=== PATIENT | male | born 1980 | race American Indian/Alaskan Native ===

== ENCOUNTER 2018-10-04 21:24 | Emergency (ER) | payer MEDICAID, OTHER ==
[2018-10-04] MEDS ORDERED: Acetaminophen/HYDROcodone 108-2.5 MG/5 ML Cup PO ONE ×2 (22:30→22:31)
[2018-10-04] MEDS ORDERED: Acetaminophen/oxyCODONE 325-5 MG Tab PO ONE (22:39)
[2018-10-04 22:49] LABS: ANION GAP 14.5; CHLORIDE,CL 93 mmol/L (101-111); SODIUM,NA 126 mmol/L (135-145)
--- NOTE | 2018-10-04 23:14 | EDM.PDOC ---
ED HPI GENERAL MEDICAL PROBLEM - General Chief Complaint: ENT Problem Stated Complaint: PAIN IN JAW [id number] Time Seen by Provider: 10/04/18 21:40 Source of Information: Reports: Patient History Limitations: Reports: No Limitations - History of Present Illness INITIAL COMMENTS - FREE TEXT/NARRATIVE: ED with c/o left jaw pain, Reports falling 2 weeks ago and fractured jaw. Hospitalized and surgical repair in [place]. Home with pain medication, Ran out on Tuesday, Today increased pain and some swelling on left lower, felt warm today. Has continued liquid diet and oral rinses. Stated he attempted to contact surgeons office today and patient was told to come to ED for refill of medications. Follow up appointment next week. has been alternating tylenol and ibuprofen without relief today. Left Face Pain Score (Numeric/FACES): 10 - Related Data Allergies Allergy/AdvReac Type Severity Reaction Status Date / Time pineapple Allergy Other Verified 10/04/18 21:28 Home Meds: Home Meds Citalopram Hydrobromide [Citalopram HBr] 20 mg PO DAILY 02/20/15 [History] Lisinopril 20 mg PO DAILY 02/20/15 [History] Ranitidine HCl [Zantac 75] 75 mg PO ASDIRECTED PRN 08/08/18 [History] metFORMIN HCl [Metformin HCl] 1,000 mg PO DAILY 08/08/18 [History] traZODone HCl [Trazodone HCl] 150 mg PO BEDTIME PRN 08/08/18 [History] Insulin Glarg,Human.Rec.Analog [Lantus] 20 units SUBCUT DAILY 10/04/18 [History] Past Medical History Cardiovascular History: Reports: Hypertension Gastrointestinal History: Reports: GERD Musculoskeletal History: Reports: Fracture Other Musculoskeletal History: left jaw Other Psychiatric History: insomnia Endocrine/Metabolic History: Reports: Diabetes, Type II - Past Surgical History HEENT Surgical History: Reports: Other (See Below) Other HEENT Surgeries/Procedures: jaw wired shut Other Musculoskeletal Surgeries/Procedures:: right lower leg surgery Social & Family History - Family History Family Medical History: Noncontributory - Tobacco Use Smoking Status *Q: Current Every Day Smoker Years of Tobacco use: 20 Packs/Tins Daily: 0.2 - Caffeine Use Caffeine Use: Reports: Coffee, Soda - Recreational Drug Use Recreational Drug Use: No - Living Situation & Occupation Living situation: Reports: with Family Occupation: Unemployed ED ROS ENT - Review of Systems Review Of Systems: See Below Constitutional: Reports: Fever HEENT: Reports: Other (left jaw pain wires and plates) Respiratory: Reports: No Symptoms Cardiovascular: Reports: No Symptoms Endocrine: Denies: High Glucose GI/Abdominal: Reports: No Symptoms Musculoskeletal: Reports: No Symptoms Skin: Reports: No Symptoms Neurological: Reports: No Symptoms ED EXAM, ENT - Physical Exam Exam: See Below Exam Limited By: No Limitations General Appearance: Alert, Mild Distress Eye Exam: Bilateral Eye: EOMI Ears: Normal External Exam, Normal TMs Nose: Normal Inspection Mouth/Throat: Other (jaw wired, mild swelling noted left lower, no redness, Gum tissue appears normal, dentation wnl) Head: Other (old abrasion mid parietal 3cm) Neck: Full Range of Motion Respiratory/Chest: No Respiratory Distress, Lungs Clear, Normal Breath Sounds Cardiovascular: Normal Peripheral Pulses, Regular Rate, Rhythm GI/Abdominal: Soft Extremities: Normal Inspection Neurological: Alert, Oriented, Normal Cognition Psychiatric: Normal Affect Skin: Warm, Dry, Intact, Normal Color Course - Vital Signs Last Recorded V/S: Last Vital Signs Temp 98.0 F 10/04/18 21:31 Pulse 94 10/04/18 23:14 Resp 16 10/04/18 23:14 BP 146/95 H 10/04/18 23:14 Pulse Ox 99 10/04/18 23:14 - Orders/Labs/Meds Labs: Laboratory Tests 10/04/18 10/04/18 10/04/18 Range/Units 22:22 22:22 22:22 WBC 7.3 (5.0-10.0) 10^3/uL RBC 4.50 L (4.6-6.2) 10^6/uL Hgb 14.1 (14.0-18.0) g/dL Hct 39.7 L (40.0-54.0) % MCV 88.2 (80-100) fL MCH 31.3 (27.0-34.0) pg MCHC 35.5 H (33.0-35.0) g/dL Plt Count 243 (150-450) 10^3/uL Neut % (Auto) 49.7 (42.2-75.2) % Lymph % (Auto) 38.0 (20.5-50.1) % Ocean % (Auto) 11.0 H (2-8) % Eos % (Auto) 1.0 (1.0-3.0) % Baso % (Auto) 0.3 (0.0-1.0) % Sodium 126 L (135-145) mmol/L Potassium 3.5 L (3.6-5.0) mmol/L Chloride 93 L (101-111) mmol/L Carbon Dioxide 22.0 (21.0-31.0) mmol/L Anion Gap 14.5 BUN 7 (7-18) mg/dL Creatinine 0.5 L (0.6-1.3) mg/dL Est Cr Clr Drug Dosing 196.39 mL/min Estimated GFR (MDRD) > 60 Glucose 394 H (74-105) mg/dL Lactic Acid 1.3 (0.5-2.2) mmol/L Calcium 8.3 L (8.4-10.2) mg/dl Ethyl Alcohol mg/dL 10/04/18 Range/Units 22:22 WBC (5.0-10.0) 10^3/uL RBC (4.6-6.2) 10^6/uL Hgb (14.0-18.0) g/dL Hct (40.0-54.0) % MCV (80-100) fL MCH (27.0-34.0) pg MCHC (33.0-35.0) g/dL Plt Count (150-450) 10^3/uL Neut % (Auto) (42.2-75.2) % Lymph % (Auto) (20.5-50.1) % Ocean % (Auto) (2-8) % Eos % (Auto) (1.0-3.0) % Baso % (Auto) (0.0-1.0) % Sodium (135-145) mmol/L Potassium (3.6-5.0) mmol/L Chloride (101-111) mmol/L Carbon Dioxide (21.0-31.0) mmol/L Anion Gap BUN (7-18) mg/dL Creatinine (0.6-1.3) mg/dL Est Cr Clr Drug Dosing mL/min Estimated GFR (MDRD) Glucose (74-105) mg/dL Lactic Acid (0.5-2.2) mmol/L Calcium (8.4-10.2) mg/dl Ethyl Alcohol < 5 mg/dL Meds: Medications Discontinued Medications Generic Name Dose Route Start Last Admin Trade Name Eboni PRN Reason Stop Dose Admin Hydrocodone Bitart/Acetaminophen 5 ml 10/04/18 22:30 Acetaminophen/Hydrocodone 108-2.5 Mg/5 Ml PO 10/04/18 22:31 ONETIME ONE Hydrocodone Bitart/Acetaminophen 10 ml 10/04/18 22:31 10/04/18 23:03 Acetaminophen/Hydrocodone 108-2.5 Mg/5 Ml PO 10/04/18 22:32 Not Given ONETIME ONE Oxycodone/Acetaminophen 1 tab 10/04/18 22:39 10/04/18 22:45 Percocet 325-5 Mg PO 10/04/18 22:40 1 tab ONETIME ONE Administration Departure - Departure Time of Disposition: 23:10 Disposition: Home, Self-Care 01 Condition: Good Clinical Impression: Jaw pain Fx angle of jaw-closed Qualifiers: Encounter type: sequela Laterality: left Qualified Code(s): S02.652S - Fracture of angle of left mandible, sequela - Discharge Information *PRESCRIPTION DRUG MONITORING PROGRAM REVIEWED*: Yes *COPY OF PRESCRIPTION DRUG MONITORING REPORT IN PATIENT SEMJA: No Instructions: Mandibular Fracture, [id number] Forms: ED Department Discharge Additional Instructions: continue liquid diet oral rinses sleep with HOB elevated Follow up with surgeon in am alternate tylenol 650mg and ibuprofen 600mg every 4 hours as needed
[2018-10-04 23:15] VITALS: BP 146/95
== END 2018-10-04 23:16 | disposition home or self-care (01) ==
LOC: DL.ED 21:24
DX: S02.652D Fracture of angle of left mandible, subsequent encounter for fracture with routine healing (principal); R68.84 Jaw pain; I10 Essential (primary) hypertension; E11.9 Type 2 diabetes mellitus without complications; Z79.4 Long term (current) use of insulin; F17.210 Nicotine dependence, cigarettes, uncomplicated; Z91.018 Allergy to other foods; Z79.899 Other long term (current) drug therapy; W19.XXXD Unspecified fall, subsequent encounter
CPT/HCPCS: 36415; 80048; 83605; 85025; 99283; A9270; G0480

== ENCOUNTER 2018-11-11 13:57 | Emergency (ER) | payer MEDICAID, OTHER ==
[2018-11-11] MEDS ORDERED: metroNIDAZOLE 250 MG Tab PO ONE (13:58)
[2018-11-11] MEDS ORDERED: Amoxicillin 500 MG Cap PO ONE (13:58)
[2018-11-11 14:10] VITALS: BP 155/90
[2018-11-11] MEDS ORDERED: Amoxicillin 500 MG Cap ONE (14:49)
[2018-11-11] MEDS ORDERED: metroNIDAZOLE 250 MG Tab ONE (14:49)
--- NOTE | 2018-11-11 14:57 | EDM.PDOC ---
Scribed by Stephanie Mackenzie 11/11/18 [id number] for Tobin Olsen MD ED HPI GENERAL MEDICAL PROBLEM - General Chief Complaint: ENT Problem Stated Complaint: TEETH Time Seen by Provider: 11/11/18 14:30 Source of Information: Reports: Patient, RN, RN Notes Reviewed History Limitations: Reports: No Limitations - History of Present Illness INITIAL COMMENTS - FREE TEXT/NARRATIVE: Patient presents to ER with complaint of left jaw pain with swelling and purulent foul tasting drainage along the left molars. He has history of left mandible fracture with ORIF and metallic plate placed in [place] approximately 5 weeks ago. Patient has not returned for follow up. He denies fever or chills. Denies any recent injuries or postoperative injuries. Onset: Gradual Duration: Constant Location: Reports: Other (mouth) Quality: Reports: Ache Severity: Moderate Improves with: Reports: None Worsens with: Reports: None Associated Symptoms: Reports: No Other Symptoms - Related Data Allergies Allergy/AdvReac Type Severity Reaction Status Date / Time pineapple Allergy Other Verified 11/11/18 14:07 Home Meds: Home Meds Citalopram Hydrobromide [Citalopram HBr] 20 mg PO DAILY 02/20/15 [History] Lisinopril 20 mg PO DAILY 02/20/15 [History] Ranitidine HCl [Zantac 75] 75 mg PO ASDIRECTED PRN 08/08/18 [History] metFORMIN HCl [Metformin HCl] 1,000 mg PO DAILY 08/08/18 [History] traZODone HCl [Trazodone HCl] 150 mg PO BEDTIME PRN 08/08/18 [History] Insulin Glarg,Human.Rec.Analog [Lantus] 20 units SUBCUT DAILY 10/04/18 [History] Past Medical History Cardiovascular History: Reports: Hypertension Gastrointestinal History: Reports: GERD Musculoskeletal History: Reports: Fracture Other Musculoskeletal History: left jaw Other Psychiatric History: insomnia Endocrine/Metabolic History: Reports: Diabetes, Type II - Past Surgical History HEENT Surgical History: Reports: Other (See Below) Other HEENT Surgeries/Procedures: jaw wired shut Other Musculoskeletal Surgeries/Procedures:: right lower leg surgery Social & Family History - Family History Family Medical History: Noncontributory - Caffeine Use Caffeine Use: Reports: Coffee, Soda - Living Situation & Occupation Living situation: Reports: with Family Occupation: Unemployed ED ROS GENERAL - Review of Systems Review Of Systems: ROS reveals no pertinent complaints other than HPI. ED EXAM, GENERAL - Physical Exam Exam: See Below Exam Limited By: No Limitations General Appearance: Alert, WD/WN, No Apparent Distress Eye Exam: Bilateral Eye: Normal Inspection Ears: Normal External Exam, Hearing Grossly Normal Nose: Normal Inspection, Normal Mucosa, No Blood Throat/Mouth: Normal Lips, Other (Left facial swelling without erythema, or increased warmth. Left molar gingival swelling w/purulent drainage.) Head: Atraumatic, Normocephalic Neck: Normal Inspection, Supple, Non-Tender, Full Range of Motion. No: Lymphadenopathy (L), Lymphadenopathy (R) Respiratory/Chest: No Respiratory Distress Cardiovascular: Regular Rate, Rhythm Neurological: Alert, Oriented, No Motor/Sensory Deficits Psychiatric: Normal Affect, Normal Mood Skin Exam: Warm, Dry, Intact, Normal Color, No Rash Course - Vital Signs Last Recorded V/S: Last Vital Signs Temp 36.6 C 11/11/18 14:03 Pulse 95 11/11/18 14:03 Resp 16 11/11/18 14:03 BP 155/90 H 11/11/18 14:09 Pulse Ox 99 11/11/18 14:03 - Orders/Labs/Meds Orders: Active Orders 24 hr Category Date Time Status CULTURE WOUND [RM] Stat Lab 11/11/18 14:44 Ordered Departure - Departure Time of Disposition: 14:39 Disposition: Home, Self-Care 01 Condition: Fair Clinical Impression: Dental abscess Postoperative infection Qualifiers: Encounter type: initial encounter Postoperative infection type: superficial incisional surgical site Qualified Code(s): T81.41XA - Infection following a procedure, superficial incisional surgical site, initial encounter - Discharge Information *PRESCRIPTION DRUG MONITORING PROGRAM REVIEWED*: Not Applicable *COPY OF PRESCRIPTION DRUG MONITORING REPORT IN PATIENT SEMAJ: Not Applicable Instructions: Dental Abscess, [id number], Surgical Site Infections FAQs - CESAR Forms: ED Department Discharge Additional Instructions: RX: Flagyl 500mg. RX: Amoxicillin 500mg. Swish, rinse and spit with warm salt water several times a day and after every meal. Follow up with his surgeon in [place] at the first available appointment. - My Orders Last 24 Hours: My Active Orders 11/11/18 14:44 CULTURE WOUND [RM] Stat - Assessment/Plan Last 24 Hours: My Active Orders 11/11/18 14:44 CULTURE WOUND [RM] Stat I have read and agree with the documentation that has been completed regarding this visit. By signing this record, I attest that the documentation was completed in my physical presence and is an accurate record of the encounter.
== END 2018-11-11 14:53 | disposition home or self-care (01) ==
LOC: DL.ED 13:57
DX: T81.41XA Infection following a procedure, superficial incisional surgical site, initial encounter (principal); K04.7 Periapical abscess without sinus; I10 Essential (primary) hypertension; E11.9 Type 2 diabetes mellitus without complications; Z91.018 Allergy to other foods; Z79.899 Other long term (current) drug therapy; Z79.4 Long term (current) use of insulin
CPT/HCPCS: 87070; 99283; A9270-GY

== ENCOUNTER 2018-12-29 14:07 | Emergency (ER) | payer MEDICAID, OTHER ==
[~2018-12-29 14:07] MED LIST: Clindamycin Phosphate 900 MG in Sodium Chloride 0.9% 100 ML IV ONE; Iopamidol 612 MG/ML 100 ML Bottle IVPUSH ONE; Ketorolac 30 MG/ML SDV IVPUSH ONE; Lactated Ringers 1,000 ML IV ONE; Morphine 10 MG/ML SDV IV STA; diphenhydrAMINE 50 MG/ML SDV IVPUSH ONE
--- NOTE | 2018-12-29 14:08 | EDM.PDOC ---
ED HPI GENERAL MEDICAL PROBLEM - General Stated Complaint: COMING BY AMBULANCE Time Seen by Provider: 12/29/18 14:05 Source of Information: Reports: Patient, EMS - History of Present Illness INITIAL COMMENTS - FREE TEXT/NARRATIVE: Patient comes emergency department today with complaints of swelling in left jaw pain. Approximately 6 months ago the patient had a broken jaw where he had some surgical procedures done in [facility]. He was supposed to have the hardware removed although he has not had this completed. Over the past 2-3 days he has developed increasing pain and swelling in the left lower aspect of his jaw. He does complain of subjective fever and chills. No difficulty swallowing. No shortness of breath. No difficulty breathing. No chest pain no shortness of breath or difficulty breathing. No palpitations. No nausea no vomiting. No weakness dizziness lightheadedness. Left Lower Jaw Pain Score (Numeric/FACES): 8 - Related Data Allergies Allergy/AdvReac Type Severity Reaction Status Date / Time pineapple Allergy Other Verified 11/11/18 14:07 Home Meds: Home Meds Citalopram Hydrobromide [Citalopram HBr] 20 mg PO DAILY 02/20/15 [History] Lisinopril 20 mg PO DAILY 02/20/15 [History] Ranitidine HCl [Zantac 75] 75 mg PO ASDIRECTED PRN 08/08/18 [History] metFORMIN HCl [Metformin HCl] 1,000 mg PO DAILY 08/08/18 [History] traZODone HCl [Trazodone HCl] 150 mg PO BEDTIME PRN 08/08/18 [History] Insulin Glarg,Human.Rec.Analog [Lantus] 20 units SUBCUT DAILY 10/04/18 [History] Past Medical History HEENT History: Reports: None Cardiovascular History: Reports: Hypertension Respiratory History: Reports: Asthma Gastrointestinal History: Reports: GERD Genitourinary History: Reports: None Musculoskeletal History: Reports: Fracture Other Musculoskeletal History: left jaw Neurological History: Reports: None Other Psychiatric History: insomnia Endocrine/Metabolic History: Reports: Diabetes, Type II Hematologic History: Reports: None Immunologic History: Reports: None Oncologic (Cancer) History: Reports: None Dermatologic History: Reports: None - Infectious Disease History Infectious Disease History: Reports: Chicken Pox, Measles, Mumps - Past Surgical History HEENT Surgical History: Reports: Other (See Below) Other HEENT Surgeries/Procedures: jaw wired shut Other Musculoskeletal Surgeries/Procedures:: right lower leg surgery Social & Family History - Family History Family Medical History: Noncontributory - Caffeine Use Caffeine Use: Reports: Coffee, Soda - Living Situation & Occupation Living situation: Reports: with Family Occupation: Unemployed ED ROS ENT - Review of Systems Review Of Systems: ROS reveals no pertinent complaints other than HPI. ED EXAM, ENT - Physical Exam Exam: See Below Text/Narrative:: It is quite obvious when I enter the room that he has quite a bit of swelling on the left lower jaw just anterior or towards the midline of the angle of the left lower jaw. There is no external erythema induration. Exam Limited By: No Limitations General Appearance: Alert, No Apparent Distress Eye Exam: Bilateral Eye: EOMI Ears: Normal External Exam, Normal TMs Nose: Normal Inspection, Normal Mucousa Mouth/Throat: Dental Abcess (In the very left lower lateral region of the very back molars there is an adjacent area that is rather swollen fluctuant and erythematous concerning for an abscess that is not draining. The rest of the mouth is free of pathology.), Dry Mucous Membrane. No: Drooling, Hoarse Voice, Lip Swelling, Lip Ulcers, Throat Swelling, Tongue Swelling, Tonsillar Erythema, Tonsillar Exudates, Tonsillar Swelling, Uvular Deviation, Uvular Edema Head: Atraumatic, Normocephalic, Facial Swelling (Left lower angle of the jaw. No erythema induration or breaks in the skin.) Neck: Normal Inspection, Supple, Non-Tender, Full Range of Motion Respiratory/Chest: No Respiratory Distress, Lungs Clear, Normal Breath Sounds, No Accessory Muscle Use Cardiovascular: Normal Peripheral Pulses, Regular Rate, Rhythm, No Gallop, No JVD, No Murmur, No Rub GI/Abdominal: Normal Bowel Sounds, Soft, Non-Tender Extremities: Normal Inspection, Normal Range of Motion, Normal Capillary Refill Neurological: Alert, Oriented, Normal Cognition, No Motor/Sensory Deficits Psychiatric: Normal Affect, Normal Mood Skin: Warm, Dry, Intact, Normal Color, No Rash Course - Vital Signs Last Recorded V/S: Last Vital Signs Temp 36.7 C 12/29/18 17:18 Pulse 78 12/29/18 17:18 Resp 18 12/29/18 17:18 BP 142/65 H 12/29/18 17:18 Pulse Ox 99 12/29/18 17:18 - Orders/Labs/Meds Orders: Active Orders 24 hr Category Date Time Status CULTURE BLOOD [BC] Stat Lab 12/29/18 14:05 Received Labs: Laboratory Tests 12/29/18 12/29/18 12/29/18 Range/Units 14:00 14:00 14:00 WBC 6.9 (5.0-10.0) 10^3/uL RBC 4.50 L (4.6-6.2) 10^6/uL Hgb 14.1 (14.0-18.0) g/dL Hct 40.6 (40.0-54.0) % MCV 90.2 (80-100) fL MCH 31.3 (27.0-34.0) pg MCHC 34.7 (33.0-35.0) g/dL Plt Count 192 (150-450) 10^3/uL Neut % (Auto) 54.5 (42.2-75.2) % Lymph % (Auto) 32.2 (20.5-50.1) % [place] % (Auto) 12.2 H (2-8) % Eos % (Auto) 0.7 L (1.0-3.0) % Baso % (Auto) 0.4 (0.0-1.0) % Sodium 131 L (135-145) mmol/L Potassium 4.3 (3.6-5.0) mmol/L Chloride 97 L (101-111) mmol/L Carbon Dioxide 22.0 (21.0-31.0) mmol/L Anion Gap 16.3 BUN 10 (7-18) mg/dL Creatinine 0.6 (0.6-1.3) mg/dL Est Cr Clr Drug Dosing 163.66 mL/min Estimated GFR (MDRD) > 60 BUN/Creatinine Ratio 16.66 Glucose 374 H (74-105) mg/dL POC Glucose (70-105) mg/dl Lactic Acid (0.5-2.2) mmol/L Calcium 8.9 (8.4-10.2) mg/dl Total Bilirubin 0.7 (0.2-1.0) mg/dL AST 133 H (10-42) IU/L ALT 155 H (10-60) IU/L Alkaline Phosphatase 136 H (42-121) IU/L C-Reactive Protein 1.2 (0.0-1.3) mg/dL Total Protein 7.3 (6.7-8.2) g/dl Albumin 3.4 (3.2-5.5) g/dl Globulin 3.9 Albumin/Globulin Ratio 0.87 12/29/18 12/29/18 12/29/18 Range/Units 14:05 14:09 15:44 WBC (5.0-10.0) 10^3/uL RBC (4.6-6.2) 10^6/uL Hgb (14.0-18.0) g/dL Hct (40.0-54.0) % MCV (80-100) fL MCH (27.0-34.0) pg MCHC (33.0-35.0) g/dL Plt Count (150-450) 10^3/uL Neut % (Auto) (42.2-75.2) % Lymph % (Auto) (20.5-50.1) % [place] % (Auto) (2-8) % Eos % (Auto) (1.0-3.0) % Baso % (Auto) (0.0-1.0) % Sodium (135-145) mmol/L Potassium (3.6-5.0) mmol/L Chloride (101-111) mmol/L Carbon Dioxide (21.0-31.0) mmol/L Anion Gap BUN (7-18) mg/dL Creatinine (0.6-1.3) mg/dL Est Cr Clr Drug Dosing mL/min Estimated GFR (MDRD) BUN/Creatinine Ratio Glucose (74-105) mg/dL POC Glucose 369 H 187 H (70-105) mg/dl Lactic Acid 1.9 (0.5-2.2) mmol/L Calcium (8.4-10.2) mg/dl Total Bilirubin (0.2-1.0) mg/dL AST (10-42) IU/L ALT (10-60) IU/L Alkaline Phosphatase (42-121) IU/L C-Reactive Protein (0.0-1.3) mg/dL Total Protein (6.7-8.2) g/dl Albumin (3.2-5.5) g/dl Globulin Albumin/Globulin Ratio 12/29/18 Range/Units 16:30 WBC (5.0-10.0) 10^3/uL RBC (4.6-6.2) 10^6/uL Hgb (14.0-18.0) g/dL Hct (40.0-54.0) % MCV (80-100) fL MCH (27.0-34.0) pg MCHC (33.0-35.0) g/dL Plt Count (150-450) 10^3/uL Neut % (Auto) (42.2-75.2) % Lymph % (Auto) (20.5-50.1) % [place] % (Auto) (2-8) % Eos % (Auto) (1.0-3.0) % Baso % (Auto) (0.0-1.0) % Sodium (135-145) mmol/L Potassium (3.6-5.0) mmol/L Chloride (101-111) mmol/L Carbon Dioxide (21.0-31.0) mmol/L Anion Gap BUN (7-18) mg/dL Creatinine (0.6-1.3) mg/dL Est Cr Clr Drug Dosing mL/min Estimated GFR (MDRD) BUN/Creatinine Ratio Glucose (74-105) mg/dL POC Glucose 255 H (70-105) mg/dl Lactic Acid (0.5-2.2) mmol/L Calcium (8.4-10.2) mg/dl Total Bilirubin (0.2-1.0) mg/dL AST (10-42) IU/L ALT (10-60) IU/L Alkaline Phosphatase (42-121) IU/L C-Reactive Protein (0.0-1.3) mg/dL Total Protein (6.7-8.2) g/dl Albumin (3.2-5.5) g/dl Globulin Albumin/Globulin Ratio Meds: Medications Discontinued Medications Generic Name Dose Route Start Last Admin Trade Name Freq PRN Reason Stop Dose Admin Diphenhydramine HCl 25 mg 12/29/18 14:05 12/29/18 14:23 Benadryl IVPUSH 12/29/18 14:06 25 mg ONETIME ONE Administration Hydromorphone HCl 1 mg 12/29/18 16:49 12/29/18 17:24 Dilaudid IVPUSH 12/29/18 16:50 1 mg ONETIME ONE Administration Lactated Ringer's 1,000 mls @ 1,000 mls/hr 12/29/18 14:05 12/29/18 14:26 Ringers, Lactated IV 12/29/18 15:04 1,000 mls/hr .BOLUS ONE Administration Clindamycin Phosphate 900 mg/ 106 mls @ 200 mls/hr 12/29/18 14:06 12/29/18 14 :19 Sodium Chloride IV 12/29/18 14:37 200 mls/hr ONETIME ONE Administration Lactated Ringer's 1,000 mls @ 200 mls/hr 12/29/18 17:15 12/29/18 17:24 Ringers, Lactated IV 200 mls/hr ASDIRECTED CARMEN Administration Insulin Human Regular 5 unit 12/29/18 14:09 12/29/18 14:21 Humulin R SUBCUT 12/29/18 14:10 5 units ONETIME ONE Administration Iopamidol 100 ml 12/29/18 14:06 12/29/18 14:59 Isovue-300 (61%) IVPUSH 12/29/18 14:07 100 ml ONETIME ONE Administration Ketorolac Tromethamine 30 mg 12/29/18 14:05 12/29/18 14:20 Toradol IVPUSH 12/29/18 14:06 30 mg ONETIME ONE Administration Lidocaine/Epinephrine 20 ml 12/29/18 14:53 12/29/18 17:37 Xylocaine 1% With Epinephrine 1:100,000 INJECT 12/29/18 14:54 Not Given ONETIME ONE Morphine Sulfate 4 mg 12/29/18 14:05 12/29/18 14:26 Morphine IV 12/29/18 14:06 Not Given NOW STA Morphine Sulfate 4 mg 12/29/18 14:15 12/29/18 14:26 Morphine IV 12/29/18 14:16 4 mg NOW STA Administration - Radiology Interpretation Free Text/Narrative:: CT of the facial bones per radiology with contrast. Question of periostosis acute vs chronic and cellulitis of the area in questions with no identifiable drainable abscess. - Re-Assessments/Exams Free Text/Narrative Re-Assessment/Exam: 12/29/18 lood cultures 2 pending. Patient was given pain nausea management. CT scan was performed. Clindamycin 900 mg IV piggyback. with the presence of the surgical implant for the repair of the mandible fracture in the area of the severe cellulitis with concerns for infection that is spread into the surgical site. There is no drainable abscess. I called and spoke with Dr. Ferreira at [facility]. [facility] ER COURSE findings and concerns were relayed to him. He accepted the patient in transfer at this time. The patient was comfortable with this plan and his questions answered. Departure - Departure Time of Disposition: 17:00 Disposition: DC/Tfer to [facility] 02 Clinical Impression: Dentoalveolar cellulitis - Discharge Information Forms: ED Department Discharge - My Orders Last 24 Hours: My Active Orders 12/29/18 14:05 CULTURE BLOOD [BC] Stat - Assessment/Plan Last 24 Hours: My Active Orders 12/29/18 14:05 CULTURE BLOOD [BC] Stat Assessment:: Left lower dental alveolar cellulitis SP mandible fracture. Concern for surgical hardware infection. Plan: Transfer to [facility] for further care and evaluation.
[2018-12-29] MEDS ORDERED: Insulin Regular, Human 100 Units/ML 3 ML Vial SUBCUT ONE (14:09)
[2018-12-29] MEDS ORDERED: Morphine 4 MG/ML Syringe IV STA (14:15)
[2018-12-29 14:33] LABS: ANION GAP 16.3; CHLORIDE,CL 97 mmol/L (101-111); SODIUM,NA 131 mmol/L (135-145)
[2018-12-29] MEDS: Lidocaine 1% with EPINEPHrine 1:100,000 20 ML MDV INJECT ONE ×2 (15:08→17:37)
--- NOTE | 2018-12-29 16:27 | CT ---
Clinical history: 38-year-old diabetic male with fractured jaw who underwent surgery approximately 6 months ago presents now with asymmetric swelling, inferior/lateral to the fractured left mandible (and "hardware"). Scan technique: Volume acquisition of data emergency unenhanced CT scan of the facial bones obtained while the patient was lying supine on the Siemens multi slice scanner [place], [place]. All data archived in the PAC system for storage, reformatting axial/sagittal/coronal planes and study. Interpretation: 1. Asymmetric soft tissue swelling, on the left with the underlying mandibular fracture at the epicenter, does not have a central area of necrosis or loculation i.e. no definite organized abscess appreciated. 2. Satisfactory apposition and near anatomic alignment of the fracture fragments angle of the left mandible with focal periostitis and callus may simply reflect 6 months of healing however cannot entirely exclude possibility of inflammatory periostitis. Note: No abnormal dissolution of the underlying cortical bone suggesting osteomyelitis. 3. Normal TMJs bilaterally. No zygomatic arch, contralateral right mandible or maxillary fractures. 4. Inflammatory retention cyst maxillary antra bilaterally. Nasal septum is straight in the midline. CONCLUSION: Evidence of old fracture and surgical intervention. Asymmetric soft tissue swelling without organized abscess i.e. probable cellulitis but close clinical correlation and follow-up (possible MRI) requested.
[2018-12-29] MEDS ORDERED: HYDROmorphone 1 MG/ML Syringe IVPUSH ONE (16:49)
[2018-12-29] MEDS ORDERED: Lactated Ringers 1,000 ML IV SCH (17:15)
[2018-12-29 17:24] VITALS: BP 142/65
== END 2018-12-29 17:35 ==
LOC: DL.ED 14:07
DX: K12.2 Cellulitis and abscess of mouth (principal); I10 Essential (primary) hypertension; J45.909 Unspecified asthma, uncomplicated; K21.9 Gastro-esophageal reflux disease without esophagitis; E11.9 Type 2 diabetes mellitus without complications; Z79.4 Long term (current) use of insulin; Z91.018 Allergy to other foods; Z79.899 Other long term (current) drug therapy
CPT/HCPCS: 36415; 70487; 80053; 82962; 83605; 85025; 86140; 87040; 96361; 96365; 96372; 96375; 99283; J1170; J1200; J1885; J2270; J3490; J7050; J7120; Q9967

== ENCOUNTER 2019-03-13 16:53 | Emergency (ER) | payer MEDICAID, OTHER ==
[2019-03-13 17:06] VITALS: BP 142/85
[2019-03-13] MEDS ORDERED: Sodium Chloride 0.9% 1,000 ML IV ONE (17:19)
[2019-03-13] MEDS ORDERED: Ondansetron 4 MG/2 ML SDV IV ONE (17:19)
[2019-03-13] MEDS ORDERED: HYDROmorphone 1 MG/ML Syringe IVPUSH ONE (17:20)
[2019-03-13] MEDS ORDERED: Sodium Chloride 0.9% 10 ML Syringe FLUSH PRN (17:20)
--- NOTE | 2019-03-13 17:26 | EDM.PDOC ---
"<Mario Olsen - Last Filed: 03/13/19 18:39> ED HPI GENERAL MEDICAL PROBLEM - General Chief Complaint: Abdominal Pain Stated Complaint: ABDOMINAL PAIN Time Seen by Provider: 03/13/19 17:25 Source of Information: Reports: Patient, RN, RN Notes Reviewed History Limitations: Reports: No Limitations - History of Present Illness INITIAL COMMENTS - FREE TEXT/NARRATIVE: Pt presents to ER by POV stating that [facility] told him to go to the ER for evaluation of abdominal pain. Pt c/o upper abdominal pain x3 days with fevers, nausea, and vomiting x1. Pt states he was diagnosed with gallstones and was to have his gallbladder removed, but he broke his jaw and had to have it surgically repaired before they would operate on it. Pt denies diarrhea, dysuria , or abdominal distention. Onset Date: 03/10/19 Duration: Constant Location: Reports: Abdomen Quality: Reports: Ache Severity: Severe Improves with: Reports: None Worsens with: Reports: Eating Associated Symptoms: Reports: No Other Symptoms Abdomen Pain Score (Numeric/FACES): 7 - Related Data Allergies Allergy/AdvReac Type Severity Reaction Status Date / Time pineapple Allergy Other Verified 03/13/19 17:07 Home Meds: Home Meds Citalopram Hydrobromide [Citalopram HBr] 20 mg PO DAILY 02/20/15 [History] Lisinopril 20 mg PO DAILY 02/20/15 [History] Ranitidine HCl [Zantac 75] 75 mg PO ASDIRECTED PRN 08/08/18 [History] metFORMIN HCl [Metformin HCl] 1,000 mg PO DAILY 08/08/18 [History] Insulin Glarg,Human.Rec.Analog [Lantus] 20 units SUBCUT DAILY 10/04/18 [History] Past Medical History HEENT History: Reports: None Cardiovascular History: Reports: Hypertension Respiratory History: Reports: Asthma Gastrointestinal History: Reports: GERD Genitourinary History: Reports: None Musculoskeletal History: Reports: Fracture Other Musculoskeletal History: left jaw Neurological History: Reports: None Psychiatric History: Reports: Addiction, Depression Other Psychiatric History: insomnia Endocrine/Metabolic History: Reports: Diabetes, Type II Hematologic History: Reports: None Immunologic History: Reports: None Oncologic (Cancer) History: Reports: None Dermatologic History: Reports: None - Infectious Disease History Infectious Disease History: Reports: Chicken Pox, Measles, Mumps - Past Surgical History Head Surgeries/Procedures: Reports: None HEENT Surgical History: Reports: Other (See Below) Other HEENT Surgeries/Procedures: jaw wired shut Other Musculoskeletal Surgeries/Procedures:: right lower leg surgery Social & Family History - Family History Family Medical History: Noncontributory - Tobacco Use Smoking Status *Q: Current Every Day Smoker Years of Tobacco use: 27 Packs/Tins Daily: 0.5 Second Hand Smoke Exposure: No - Caffeine Use Caffeine Use: Reports: None - Alcohol Use Alcohol Use History: Yes Days Per Week of Alcohol Use: 6 Number of Drinks Per Day: 10 Total Drinks Per Week: 60 Alcohol Use Frequency: Binges, Patient Refused to Answer - Recreational Drug Use Recreational Drug Use: No - Living Situation & Occupation Living situation: Reports: with Family Occupation: Unemployed ED ROS GENERAL - Review of Systems Review Of Systems: ROS reveals no pertinent complaints other than HPI. ED EXAM, GI/ABD - Physical Exam Exam: See Below Exam Limited By: No Limitations General Appearance: Alert, WD/WN, No Apparent Distress Eyes: Bilateral: Normal Appearance (No scleral icterus) Nose: Normal Inspection, Normal Mucosa, No Blood Throat/Mouth: Normal Inspection, Normal Lips, Normal Teeth, Normal Gums, Normal Oropharynx, Normal Voice, No Airway Compromise Head: Atraumatic, Normocephalic Neck: Normal Inspection, Supple, Non-Tender, Full Range of Motion Respiratory/Chest: No Respiratory Distress, Lungs Clear, Normal Breath Sounds, No Accessory Muscle Use, Chest Non-Tender Cardiovascular: Normal Peripheral Pulses, Regular Rate, Rhythm, No Edema, No Gallop, No JVD, No Murmur, No Rub GI/Abdominal Exam: Normal Bowel Sounds, Soft, No Organomegaly, No Distention, No Abnormal Bruit, Tender (epigastric, RUQ, RLQ, LUQ). No: Guarding, Rigid, Rebound (Male) Exam: Deferred Rectal (Males) Exam: Deferred Back Exam: Normal Inspection, Full Range of Motion. No: CVA Tenderness (L), CVA Tenderness (R) Extremities: Normal Inspection, Normal Range of Motion, Non-Tender, Normal Capillary Refill, No Pedal Edema Neurological: Alert, Oriented, CN II-XII Intact, Normal Cognition, Normal Gait, No Motor/Sensory Deficits Psychiatric: Normal Affect, Normal Mood Skin Exam: Warm, Dry, Intact, Normal Color, No Rash Course - Vital Signs Last Recorded V/S: Last Vital Signs Temp 97.5 F 03/13/19 17:05 Pulse 88 03/13/19 17:05 Resp 12 03/13/19 17:05 BP 142/85 H 03/13/19 17:05 Pulse Ox 96 03/13/19 17:05 - Orders/Labs/Meds Orders: Active Orders 24 hr Category Date Time Status Peripheral IV Care [RC] . DIRECTED Care 03/13/19 17:20 Active Abdomen Pelvis w Cont [CT] Urgent Exams 03/13/19 18:37 Taken Sodium Chloride 0.9% [Saline Flush] Med 03/13/19 17:20 Active 10 ml FLUSH ASDIRECTED PRN Peripheral IV Insertion Adult [OM.PC] Stat Oth 03/13/19 17:19 Ordered Medication Orders Sodium Chloride (Saline Flush) 10 ml FLUSH ASDIRECTED PRN PRN Reason: Keep Vein Open Last Admin: 03/13/19 17:50 Dose: 10 ml Labs: Laboratory Tests 03/13/19 03/13/19 03/13/19 Range/Units 17:32 17:32 17:32 WBC 5.4 (5.0-10.0) 10^3/uL RBC 4.91 (4.6-6.2) 10^6/uL Hgb 15.2 (14.0-18.0) g/dL Hct 43.4 (40.0-54.0) % MCV 88.4 (80-100) fL MCH 31.0 (27.0-34.0) pg MCHC 35.0 (33.0-35.0) g/dL Plt Count 267 D (150-450) 10^3/uL Neut % (Auto) 24.9 L (42.2-75.2) % Lymph % (Auto) 63.2 H (20.5-50.1) % [place] % (Auto) 10.7 H (2-8) % Eos % (Auto) 0.6 L (1.0-3.0) % Baso % (Auto) 0.6 (0.0-1.0) % Sodium 139 (135-145) mmol/L Potassium 3.9 (3.6-5.0) mmol/L Chloride 102 (101-111) mmol/L Carbon Dioxide 24.0 (21.0-31.0) mmol/L Anion Gap 16.9 BUN 8 (7-18) mg/dL Creatinine 0.6 (0.6-1.3) mg/dL Est Cr Clr Drug Dosing 163.66 mL/min Estimated GFR (MDRD) > 60 BUN/Creatinine Ratio 13.33 Glucose 302 H (74-105) mg/dL Lactic Acid 1.6 (0.5-2.2) mmol/L Calcium 8.8 (8.4-10.2) mg/dl Total Bilirubin 0.5 (0.2-1.0) mg/dL AST 244 H (10-42) IU/L ALT 294 H (10-60) IU/L Alkaline Phosphatase 146 H (42-121) IU/L Total Protein 8.1 (6.7-8.2) g/dl Albumin 4.2 (3.2-5.5) g/dl Globulin 3.9 Albumin/Globulin Ratio 1.08 Amylase 60 (28-100) U/L Lipase 37 (22-51) U/L Urine Color (YELLOW) Urine Appearance (CLEAR) Urine pH (5.0-9.0) Ur Specific [place] (1.005-1.030) Urine Protein (NEGATIVE) Urine Glucose (UA) (NEGATIVE) Urine Ketones (NEGATIVE) Urine Occult Blood (NEGATIVE) Urine Nitrite (NEGATIVE) Urine Bilirubin (NEGATIVE) Urine Urobilinogen (0.2-1.0) mg/dL Ur Leukocyte Esterase (NEGATIVE) Urine Opiates Screen (NEGATIVE) Ur Oxycodone Screen (NEGATIVE) Urine Methadone Screen (NEGATIVE) Ur Barbiturates Screen (NEGATIVE) U Tricyclic Antidepress (NEGATIVE) Ur Phencyclidine Scrn (NEGATIVE) Ur Amphetamine Screen (NEGATIVE) U Methamphetamines Scrn (NEGATIVE) Urine MDMA Screen (NEGATIVE) U Benzodiazepines Scrn (NEGATIVE) Urine Cocaine Screen (NEGATIVE) U Marijuana (THC) Screen (NEGATIVE) Ethyl Alcohol 272 mg/dL Ketones 03/13/19 03/13/19 03/13/19 Range/Units 17:32 17:42 17:42 WBC (5.0-10.0) 10^3/uL RBC (4.6-6.2) 10^6/uL Hgb (14.0-18.0) g/dL Hct (40.0-54.0) % MCV (80-100) fL MCH (27.0-34.0) pg MCHC (33.0-35.0) g/dL Plt Count (150-450) 10^3/uL Neut % (Auto) (42.2-75.2) % Lymph % (Auto) (20.5-50.1) % [place] % (Auto) (2-8) % Eos % (Auto) (1.0-3.0) % Baso % (Auto) (0.0-1.0) % Sodium (135-145) mmol/L Potassium (3.6-5.0) mmol/L Chloride (101-111) mmol/L Carbon Dioxide (21.0-31.0) mmol/L Anion Gap BUN (7-18) mg/dL Creatinine (0.6-1.3) mg/dL Est Cr Clr Drug Dosing mL/min Estimated GFR (MDRD) BUN/Creatinine Ratio Glucose (74-105) mg/dL Lactic Acid (0.5-2.2) mmol/L Calcium (8.4-10.2) mg/dl Total Bilirubin (0.2-1.0) mg/dL AST (10-42) IU/L ALT (10-60) IU/L Alkaline Phosphatase (42-121) IU/L Total Protein (6.7-8.2) g/dl Albumin (3.2-5.5) g/dl Globulin Albumin/Globulin Ratio Amylase (28-100) U/L Lipase (22-51) U/L Urine Color Yellow (YELLOW) Urine Appearance Clear (CLEAR) Urine pH 5.0 (5.0-9.0) Ur Specific [place] 1.010 (1.005-1.030) Urine Protein Negative (NEGATIVE) Urine Glucose (UA) 500 H (NEGATIVE) Urine Ketones Negative (NEGATIVE) Urine Occult Blood Negative (NEGATIVE) Urine Nitrite Negative (NEGATIVE) Urine Bilirubin Negative (NEGATIVE) Urine Urobilinogen 0.2 (0.2-1.0) mg/dL Ur Leukocyte Esterase Negative (NEGATIVE) Urine Opiates Screen Negative (NEGATIVE) Ur Oxycodone Screen Negative (NEGATIVE) Urine Methadone Screen Negative (NEGATIVE) Ur Barbiturates Screen Negative (NEGATIVE) U Tricyclic Antidepress Negative (NEGATIVE) Ur Phencyclidine Scrn Negative (NEGATIVE) Ur Amphetamine Screen Negative (NEGATIVE) U Methamphetamines Scrn Negative (NEGATIVE) Urine MDMA Screen Negative (NEGATIVE) U Benzodiazepines Scrn Negative (NEGATIVE) Urine Cocaine Screen Negative (NEGATIVE) U Marijuana (THC) Screen Negative (NEGATIVE) Ethyl Alcohol mg/dL Ketones Negative Meds: Medications Generic Name Dose Route Start Last Admin Trade Name Freq PRN Reason Stop Dose Admin Sodium Chloride 10 ml 03/13/19 17:20 03/13/19 17:50 Saline Flush FLUSH 10 ml ASDIRECTED PRN Administration Keep Vein Open Discontinued Medications Generic Name Dose Route Start Last Admin Trade Name Freq PRN Reason Stop Dose Admin Famotidine 20 mg 03/13/19 19:38 Pepcid IVPUSH 03/13/19 19:39 ONETIME ONE Hydromorphone HCl 1 mg 03/13/19 17:20 03/13/19 17:50 Dilaudid IVPUSH 03/13/19 17:21 1 mg ONETIME ONE Administration Sodium Chloride 1,000 mls @ 999 mls/hr 03/13/19 17:19 03/13/19 17:48 Normal Saline IV 03/13/19 18:19 999 mls/hr .BOLUS ONE Administration Iopamidol 100 ml 03/13/19 18:37 03/13/19 19:08 Isovue-300 (61%) IVPUSH 03/13/19 18:38 98 ml ONETIME ONE Administration Ondansetron HCl 4 mg 03/13/19 17:19 03/13/19 17:49 Zofran IV 03/13/19 17:20 4 mg ONETIME ONE Administration - Re-Assessments/Exams Free Text/Narrative Re-Assessment/Exam: 03/13/19 19:00 Care of pt transferred to [facility] at 1900HR shift change with CT Abd/ Pelvis pending. Departure - Departure Disposition: Home, Self-Care 01 Clinical Impression: Alcohol intoxication Qualifiers: Complication of substance-induced condition: with unspecified complication Qualified Code(s): F10.929 - Alcohol use, unspecified with intoxication, unspecified Abdominal pain Qualifiers: Abdominal location: upper abdomen, unspecified Qualified Code(s): R10.10 - Upper abdominal pain, unspecified Gastritis due to alcohol without hemorrhage Qualifiers: Chronicity: acute Qualified Code(s): K29.20 - Alcoholic gastritis without bleeding - Discharge Information Instructions: Gastritis, Adult, [id number] Forms: ED Department Discharge Additional Instructions: bland low fat diet increase fluid intake, water, juices decrease alcohol use omeprazole 20mg OTC one daily follow up with primary care <Gracy Goddard - Last Filed: 03/13/19 19:49> Course - Radiology Interpretation Free Text/Narrative:: [facility] Final Radiology Report Call: [phone] assistance Online chat: [email or web address] Name: CYNTHIA SOTO Age: 38Years M Date: 03/13/2019 SSN: -- : [id number] Study: CT ABDOMEN/PELVIS W Requesting Physician: MARIO OLSEN Images: 240 Addl Studies: Provided Clinical History: Contrast: With Contrast Medium: Iso 300 Contrast Amount: 98 mL Contrast Method: L Hand Page 1 of 2 EXAM: CT Abdomen and Pelvis With Contrast EXAM DATE/TIME: 03/13/2019 6:57 PM CLINICAL HISTORY: 38 years old, male; Abdominal pain; Localized; Right; Patient HX: Smoker TECHNIQUE: Imaging protocol: Axial computed tomography images of the abdomen and pelvis with intravenous contrast. Coronal and sagittal reformatted images were created and reviewed. Radiation optimization: All CT scans at this facility use at least one of these dose optimization techniques: automated exposure control; mA and/or kV adjustment per patient size (includes targeted exams where dose is matched to clinical indication); or iterative reconstruction. Contrast material: ISO 300; Contrast volume: 98 ml; Contrast route: L HAND; COMPARISON: CT Abdomen Pelvis w Cont 08/08/2018 5:40 AM FINDINGS: ABDOMEN: Liver: 10 mm low attenuation focus lateral segment left lobe liver likely represents a cyst or incompletely opacified hemangioma. Findings stable in comparison to the prior study. Liver otherwise unremarkable. Gallbladder and bile ducts: Normal. No calcified stones. No ductal dilation. Pancreas: Normal. No ductal dilation. Spleen: Normal. No splenomegaly. Adrenals: Normal. No mass. CYNTHIA SOTO | Final Radiology Report CONFIDENTIALITY STATEMENT This report is intended only for use by the referring physician, and only in accordance with law. If you received this in error, call [phone]. Page 2 of 2 Kidneys and ureters: Punctate nonobstructive calculus upper pole right kidney. Stomach and bowel: Hyperdense structure in the gastric wall the GE junction similar in appearance to the prior study. Finding of uncertain significance. Appendix: Normal appendix. PELVIS: Bladder: Unremarkable as visualized. Reproductive: Unremarkable as visualized. ABDOMEN and PELVIS: Intraperitoneal space: Normal. No free air. No significant fluid collection. Bones/joints: Degenerative spondylosis L5-S1. Soft tissues: Unremarkable. Vasculature: Normal. No abdominal aortic aneurysm. Lymph nodes: Normal. No enlarged lymph nodes. IMPRESSION: No acute findings. Thank you for allowing us to participate in the care of your patient. Dictated and Authenticated by: Mikal Hernandez, Violet - Departure Time of Disposition: 19:49 Condition: Good - Discharge Information *PRESCRIPTION DRUG MONITORING PROGRAM REVIEWED*: No *COPY OF PRESCRIPTION DRUG MONITORING REPORT IN PATIENT SEMAJ: No"
[2019-03-13 18:02] LABS: ANION GAP 16.9; CHLORIDE,CL 102 mmol/L (101-111); SODIUM,NA 139 mmol/L (135-145)
[2019-03-13] MEDS ORDERED: Iopamidol 612 MG/ML 100 ML Bottle IVPUSH ONE (18:37)
[2019-03-13] MEDS ORDERED: Famotidine 20 MG/2 ML SDV IVPUSH ONE (19:38)
== END 2019-03-13 20:05 | disposition home or self-care (01) ==
LOC: DL.ED 16:53
DX: K29.20 Alcoholic gastritis without bleeding (principal); F10.229 Alcohol dependence with intoxication, unspecified; I10 Essential (primary) hypertension; F32.9 Major depressive disorder, single episode, unspecified; E11.9 Type 2 diabetes mellitus without complications; F17.210 Nicotine dependence, cigarettes, uncomplicated; Z79.4 Long term (current) use of insulin; Z79.899 Other long term (current) drug therapy; Z91.018 Allergy to other foods; Y90.8 Blood alcohol level of 240 mg/100 ml or more
CPT/HCPCS: 36415; 74177; 80053; 80305; 81003; 82009; 82150; 83605; 83690; 85025; 96361; 96374; 96375; 99284; G0480; J1170; J2405; J3490; J7030; Q9967

== ENCOUNTER 2019-05-29 11:42 | Emergency (ER) | payer MEDICAID ==
[2019-05-29] MEDS ORDERED: Sodium Chloride 0.9% 10 ML Syringe FLUSH PRN (11:53)
[2019-05-29 12:17] VITALS: BP 128/89
[2019-05-29 12:35] LABS: ANION GAP 14.7; CHLORIDE,CL 101 mmol/L (101-111); SODIUM,NA 142 mmol/L (135-145)
[2019-05-29] MEDS ORDERED: MVI, Adult with Vitamin K 10 ML, Folic Acid 1 MG, Thiamine 100 MG in Lactated Ringers 1... IV ONE ×4 (12:44)
[2019-05-29] MEDS ORDERED: Insulin Regular, Human 100 Units/ML 3 ML Vial IV ONE (12:44)
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
== END 2019-05-29 13:58 ==
LOC: DL.ED 11:42
DX: S00.03XA Contusion of scalp, initial encounter (principal); S00.83XA Contusion of other part of head, initial encounter; F10.129 Alcohol abuse with intoxication, unspecified; Y90.8 Blood alcohol level of 240 mg/100 ml or more; J32.0 Chronic maxillary sinusitis; I10 Essential (primary) hypertension; I25.2 Old myocardial infarction; J45.909 Unspecified asthma, uncomplicated; E11.9 Type 2 diabetes mellitus without complications; F32.9 Major depressive disorder, single episode, unspecified; Z91.018 Allergy to other foods; Z79.899 Other long term (current) drug therapy; Z79.4 Long term (current) use of insulin; Y04.2XXA Assault by strike against or bumped into by another person, initial encounter
CPT/HCPCS: 36415; 70450; 71045; 72125; 73030; 80053; 80305; 81001; 82962; 85025; 96365; 96375; 99284; G0480; J3411; J7120; J1815-GY; J3490

== ENCOUNTER 2019-10-19 05:04 | Emergency (ER) | payer MEDICAID ==
[2019-10-19] MEDS ORDERED: Ondansetron 4 MG/2 ML SDV IVPUSH ONE (05:05)
[2019-10-19] MEDS ORDERED: Sodium Chloride 0.9% 1,000 ML IV ONE (05:05)
[2019-10-19] MEDS ORDERED: Ketorolac 30 MG/ML SDV IVPUSH ONE (05:05)
[2019-10-19 05:13] VITALS: BP 110/95; PULSE 94
--- NOTE | 2019-10-19 05:18 | EDM.PDOC ---
ED HPI GENERAL MEDICAL PROBLEM - General Chief Complaint: Abdominal Pain Stated Complaint: AMBULANCE Time Seen by Provider: 10/19/19 05:11 Source of Information: Reports: Patient History Limitations: Reports: No Limitations - History of Present Illness INITIAL COMMENTS - FREE TEXT/NARRATIVE: states been having constant RUQ region pain past 4 months. states tried to get to clinic but unable and decided to come tonight to get something for his pain so he can go to [place] to get this problem taken care. explained to pt this is not how medicine is practiced. Right Lower Abdomen Pain Score (Numeric/FACES): 8 - Related Data Allergies Allergy/AdvReac Type Severity Reaction Status Date / Time pineapple Allergy Other Verified 10/19/19 05:05 Home Meds: Home Meds Citalopram Hydrobromide [Citalopram HBr] 20 mg PO DAILY 02/20/15 [History] Lisinopril 20 mg PO DAILY 02/20/15 [History] Ranitidine HCl [Zantac 75] 75 mg PO ASDIRECTED PRN 08/08/18 [History] metFORMIN HCl [Metformin HCl] 1,000 mg PO DAILY 08/08/18 [History] Insulin Glarg,Human.Rec.Analog [Lantus] 20 units SUBCUT DAILY 10/04/18 [History] Albuterol Sulfate [Proair Hfa] 2 puff INH ASDIRECTED PRN 05/10/19 [History] Gabapentin [Neurontin] 600 mg PO DAILY 05/10/19 [History] Past Medical History HEENT History: Reports: None Cardiovascular History: Reports: Hypertension, [place] Respiratory History: Reports: Asthma Gastrointestinal History: Reports: GERD, Jaundice, Pancreatitis Genitourinary History: Reports: None Musculoskeletal History: Reports: Fracture Other Musculoskeletal History: left jaw Neurological History: Reports: None Psychiatric History: Reports: Addiction, Depression Other Psychiatric History: insomnia Endocrine/Metabolic History: Reports: Diabetes, Type II Hematologic History: Reports: None Immunologic History: Reports: None Oncologic (Cancer) History: Reports: None Dermatologic History: Reports: None - Infectious Disease History Infectious Disease History: Reports: Chicken Pox, Measles, Mumps - Past Surgical History Head Surgeries/Procedures: Reports: None HEENT Surgical History: Reports: Other (See Below) Other HEENT Surgeries/Procedures: jaw wired shut Other Musculoskeletal Surgeries/Procedures:: right lower leg surgery Social & Family History - Family History Family Medical History: Noncontributory - Caffeine Use Caffeine Use: Reports: None - Living Situation & Occupation Living situation: Reports: with Family Occupation: Unemployed ED ROS GENERAL - Review of Systems Review Of Systems: Comprehensive ROS is negative, except as noted in HPI. ED EXAM, GI/ABD - Physical Exam Exam: See Below Exam Limited By: No Limitations General Appearance: Alert, WD/WN, Mild Distress, Other (discomfort). No: Active Emesis Ears: Hearing Grossly Normal Throat/Mouth: Normal Voice, No Airway Compromise Head: Atraumatic Neck: Non-Tender, Full Range of Motion Respiratory/Chest: No Respiratory Distress Cardiovascular: Regular Rate, Rhythm GI/Abdominal Exam: Tender, Other (RUQ region, BS hyper). No: Distended, Guarding, Rigid, Rebound Neurological: Alert, Oriented, Normal Cognition, Normal Gait, No Motor/Sensory Deficits Psychiatric: Flat Affect Skin Exam: Warm, Dry, Normal Color Lymphatic: No Adenopathy Course - Vital Signs Last Recorded V/S: Last Vital Signs Temp 36.9 C 10/19/19 05:12 Pulse 94 10/19/19 05:12 Resp 16 10/19/19 05:12 BP 110/95 H 10/19/19 05:12 Pulse Ox 97 10/19/19 05:12 - Orders/Labs/Meds Orders: Active Orders 24 hr Category Date Time Status Sodium Chloride 0.9% [Normal Saline] 1,000 ml Med 10/19/19 05:05 Active IV .BOLUS Medication Orders Sodium Chloride (Normal Saline) 1,000 mls @ 999 mls/hr IV .BOLUS ONE Stop: 10/19/19 06:05 Last Admin: 10/19/19 05:14 Dose: 999 mls/hr Labs: Laboratory Tests 10/19/19 10/19/19 10/19/19 Range/Units 05:03 05:03 05:22 WBC 7.5 (5.0-10.0) 10^3/uL RBC 4.94 (4.6-6.2) 10^6/uL Hgb 15.5 (14.0-18.0) g/dL Hct 42.5 (40.0-54.0) % MCV 86.0 D (80-100) fL MCH 31.4 (27.0-34.0) pg MCHC 36.5 H (33.0-35.0) g/dL Plt Count 239 (150-450) 10^3/uL Neut % (Auto) 48.2 (42.2-75.2) % Lymph % (Auto) 40.9 (20.5-50.1) % [place] % (Auto) 10.1 H (2-8) % Eos % (Auto) 0.4 L (1.0-3.0) % Baso % (Auto) 0.4 (0.0-1.0) % Sodium 130 L D (135-145) mmol/L Potassium 3.5 L (3.6-5.0) mmol/L Chloride 95 L (101-111) mmol/L Carbon Dioxide 22.0 (21.0-31.0) mmol/L Anion Gap 16.5 BUN 13 (7-18) mg/dL Creatinine 0.6 (0.6-1.3) mg/dL Est Cr Clr Drug Dosing 162.02 mL/min Estimated GFR (MDRD) > 60 BUN/Creatinine Ratio 21.66 Glucose 345 H (74-105) mg/dL Calcium 8.9 (8.4-10.2) mg/dl Total Bilirubin 0.4 (0.2-1.0) mg/dL AST 94 H (10-42) IU/L ALT 169 H (10-60) IU/L Alkaline Phosphatase 206 H (42-121) IU/L Total Protein 8.5 H (6.7-8.2) g/dl Albumin 4.1 (3.2-5.5) g/dl Globulin 4.4 Albumin/Globulin Ratio 0.93 Amylase 67 (28-100) U/L Lipase 30 (22-51) U/L Urine Color Yellow (YELLOW) Urine Appearance Clear (CLEAR) Urine pH 5.5 (5.0-9.0) Ur Specific [place] <= 1.005 (1.005-1.030) Urine Protein Negative (NEGATIVE) Urine Glucose (UA) 500 H (NEGATIVE) Urine Ketones Negative (NEGATIVE) Urine Occult Blood Negative (NEGATIVE) Urine Nitrite Negative (NEGATIVE) Urine Bilirubin Negative (NEGATIVE) Urine Urobilinogen 0.2 (0.2-1.0) mg/dL Ur Leukocyte Esterase Negative (NEGATIVE) Urine Opiates Screen (NEGATIVE) Ur Oxycodone Screen (NEGATIVE) Urine Methadone Screen (NEGATIVE) Ur Barbiturates Screen (NEGATIVE) U Tricyclic Antidepress (NEGATIVE) Ur Phencyclidine Scrn (NEGATIVE) Ur Amphetamine Screen (NEGATIVE) U Methamphetamines Scrn (NEGATIVE) Urine MDMA Screen (NEGATIVE) U Benzodiazepines Scrn (NEGATIVE) Urine Cocaine Screen (NEGATIVE) U Marijuana (THC) Screen (NEGATIVE) Ethyl Alcohol 125 mg/dL 10/19/19 Range/Units 05:22 WBC (5.0-10.0) 10^3/uL RBC (4.6-6.2) 10^6/uL Hgb (14.0-18.0) g/dL Hct (40.0-54.0) % MCV (80-100) fL MCH (27.0-34.0) pg MCHC (33.0-35.0) g/dL Plt Count (150-450) 10^3/uL Neut % (Auto) (42.2-75.2) % Lymph % (Auto) (20.5-50.1) % [place] % (Auto) (2-8) % Eos % (Auto) (1.0-3.0) % Baso % (Auto) (0.0-1.0) % Sodium (135-145) mmol/L Potassium (3.6-5.0) mmol/L Chloride (101-111) mmol/L Carbon Dioxide (21.0-31.0) mmol/L Anion Gap BUN (7-18) mg/dL Creatinine (0.6-1.3) mg/dL Est Cr Clr Drug Dosing mL/min Estimated GFR (MDRD) BUN/Creatinine Ratio Glucose (74-105) mg/dL Calcium (8.4-10.2) mg/dl Total Bilirubin (0.2-1.0) mg/dL AST (10-42) IU/L ALT (10-60) IU/L Alkaline Phosphatase (42-121) IU/L Total Protein (6.7-8.2) g/dl Albumin (3.2-5.5) g/dl Globulin Albumin/Globulin Ratio Amylase (28-100) U/L Lipase (22-51) U/L Urine Color (YELLOW) Urine Appearance (CLEAR) Urine pH (5.0-9.0) Ur Specific [place] (1.005-1.030) Urine Protein (NEGATIVE) Urine Glucose (UA) (NEGATIVE) Urine Ketones (NEGATIVE) Urine Occult Blood (NEGATIVE) Urine Nitrite (NEGATIVE) Urine Bilirubin (NEGATIVE) Urine Urobilinogen (0.2-1.0) mg/dL Ur Leukocyte Esterase (NEGATIVE) Urine Opiates Screen Negative (NEGATIVE) Ur Oxycodone Screen Negative (NEGATIVE) Urine Methadone Screen Negative (NEGATIVE) Ur Barbiturates Screen Negative (NEGATIVE) U Tricyclic Antidepress Negative (NEGATIVE) Ur Phencyclidine Scrn Negative (NEGATIVE) Ur Amphetamine Screen Negative (NEGATIVE) U Methamphetamines Scrn Positive H (NEGATIVE) Urine MDMA Screen Negative (NEGATIVE) U Benzodiazepines Scrn Negative (NEGATIVE) Urine Cocaine Screen Negative (NEGATIVE) U Marijuana (THC) Screen Negative (NEGATIVE) Ethyl Alcohol mg/dL Meds: Medications Generic Name Dose Route Start Last Admin Trade Name Freq PRN Reason Stop Dose Admin Sodium Chloride 1,000 mls @ 999 mls/hr 10/19/19 05:05 10/19/19 05:14 Normal Saline IV 10/19/19 06:05 999 mls/hr .BOLUS ONE Administration Discontinued Medications Generic Name Dose Route Start Last Admin Trade Name Freq PRN Reason Stop Dose Admin Ketorolac Tromethamine 30 mg 10/19/19 05:05 10/19/19 05:12 Toradol IVPUSH 10/19/19 05:06 30 mg ONETIME ONE Administration Ondansetron HCl 4 mg 10/19/19 05:05 10/19/19 05:12 Zofran IVPUSH 10/19/19 05:06 4 mg ONETIME ONE Administration - Re-Assessments/Exams Free Text/Narrative Re-Assessment/Exam: 10/19/19 05:58 results discussed with pt who states he hadn't taken his Rx yet. Departure - Departure Time of Disposition: 05:58 Disposition: Home, Self-Care 01 Condition: Fair Clinical Impression: Alcohol abuse, Hyperglycemia, Poor compliance with medication - Discharge Information Forms: ED Department Discharge Additional Instructions: 1) take your medications as directed 2) follow up at clinic Sepsis Event Note - Evaluation Sepsis Screening Result: No Definite Risk - Focused Exam Vital Signs: Vital Signs Temp Pulse Resp BP Pulse Ox 10/19/19 05:12 36.9 C 94 16 110/95 H 97 Date Exam was Performed: 10/19/19 Time Exam was Performed: 05:58 - My Orders Last 24 Hours: My Active Orders 10/19/19 05:05 Sodium Chloride 0.9% [Normal Saline] 1,000 ml IV .BOLUS - Assessment/Plan Last 24 Hours: My Active Orders 10/19/19 05:05 Sodium Chloride 0.9% [Normal Saline] 1,000 ml IV .BOLUS
[2019-10-19 05:28] LABS: ANION GAP 16.5; CHLORIDE,CL 95 mmol/L (101-111); SODIUM,NA 130 mmol/L (135-145)
== END 2019-10-19 06:03 | disposition home or self-care (01) ==
LOC: DL.ED 05:04
DX: F10.10 Alcohol abuse, uncomplicated (principal); E11.65 Type 2 diabetes mellitus with hyperglycemia; I10 Essential (primary) hypertension; I25.2 Old myocardial infarction; J45.909 Unspecified asthma, uncomplicated; E11.9 Type 2 diabetes mellitus without complications; F32.9 Major depressive disorder, single episode, unspecified; K21.9 Gastro-esophageal reflux disease without esophagitis; Z91.14 Patient's other noncompliance with medication regimen; Z79.4 Long term (current) use of insulin; Z79.899 Other long term (current) drug therapy; Z91.018 Allergy to other foods
CPT/HCPCS: 36415; 80053; 80305; 80320; 81003; 82150; 83690; 85025; 96361; 96374; 96375; 99284; J1885; J2405; J7030; G0480

== ENCOUNTER 2019-12-01 11:15 | Emergency (ER) | payer MEDICAID, OTHER ==
[2019-12-01 11:29] VITALS: BP 136/86; PULSE 85
[2019-12-01] MEDS ORDERED: diphenhydrAMINE 25 MG Tab PO ONE (12:12)
[2019-12-01 12:15] LABS: CHLORIDE,CL 96 mmol/L (101-111); SODIUM,NA 128 mmol/L (135-145)
[2019-12-01] MEDS ORDERED: Bacitracin Oint 1 GM U/D Packet TOP ONE (12:21)
--- NOTE | 2019-12-01 13:51 | EDM.PDOC ---
ED HPI GENERAL MEDICAL PROBLEM - General Chief Complaint: Skin Complaint Stated Complaint: AMBULANCE Time Seen by Provider: 12/01/19 11:25 Source of Information: Reports: Patient History Limitations: Reports: No Limitations - History of Present Illness INITIAL COMMENTS - FREE TEXT/NARRATIVE: ED via ambulance with c/o increased redness swelling to right thumb. cut last week on something taking out garbage, today noticed red streaking up hand and arm, hand swollen. Denies hx of MRSA or previous skin infection, previous drainage to area Left Finger-Index Pain Score (Numeric/FACES): 6 - Related Data Allergies Allergy/AdvReac Type Severity Reaction Status Date / Time pineapple Allergy Other Verified 12/01/19 11:17 Home Meds: Home Meds Lisinopril 20 mg PO DAILY 02/20/15 [History] metFORMIN HCl [Metformin HCl] 1,000 mg PO DAILY 08/08/18 [History] Albuterol Sulfate [Proair Hfa] 2 puff INH ASDIRECTED PRN 05/10/19 [History] Past Medical History HEENT History: Reports: None Cardiovascular History: Reports: Hypertension, [place] Respiratory History: Reports: Asthma Gastrointestinal History: Reports: GERD, Jaundice, Pancreatitis Genitourinary History: Reports: None Musculoskeletal History: Reports: Fracture Other Musculoskeletal History: left jaw Neurological History: Reports: None Psychiatric History: Reports: Addiction, Depression Other Psychiatric History: insomnia Endocrine/Metabolic History: Reports: Diabetes, Type II Hematologic History: Reports: None Immunologic History: Reports: None Oncologic (Cancer) History: Reports: None Dermatologic History: Reports: None - Infectious Disease History Infectious Disease History: Reports: Chicken Pox, Measles, Mumps - Past Surgical History Head Surgeries/Procedures: Reports: None HEENT Surgical History: Reports: Other (See Below) Other HEENT Surgeries/Procedures: jaw wired shut Other Musculoskeletal Surgeries/Procedures:: right lower leg surgery Social & Family History - Family History Family Medical History: Noncontributory - Tobacco Use Smoking Status *Q: Current Every Day Smoker Years of Tobacco use: 15 Packs/Tins Daily: 0.5 - Caffeine Use Caffeine Use: Reports: None - Recreational Drug Use Recreational Drug Use: No - Living Situation & Occupation Living situation: Reports: with Family Occupation: Unemployed ED ROS GENERAL - Review of Systems Review Of Systems: Comprehensive ROS is negative, except as noted in HPI. ED EXAM, SKIN/RASH Exam: See Below Exam Limited By: No Limitations General Appearance: Alert, No Apparent Distress Eye Exam: Bilateral Eye: EOMI Ears: Normal External Exam, Hearing Grossly Normal Nose: Normal Inspection Throat/Mouth: Normal Lips, Normal Voice Head: Atraumatic, Normocephalic Neck: Normal Inspection, Full Range of Motion. No: Lymphadenopathy (L), Lymphadenopathy (R) Respiratory/Chest: No Respiratory Distress, Lungs Clear, Normal Breath Sounds Cardiovascular: Regular Rate, Rhythm GI/Abdominal: Normal Bowel Sounds Back Exam: Full Range of Motion Neurological: Alert, Oriented, Normal Cognition Psychiatric: Normal Affect, Normal Mood Skin: Warm, Dry, Wound/Incision (right thumb thick callous, scant purlent drainge from center, mild swelling to thumb, faint streaking up forearm) Location, Skin: Other (right index finger pad with calloused blister scant purlulent discharge faint pink streaks back of nad to anticubital area. slight swelling to back of hand. minimal tenderenss with exploration and palpation of area.) Course - Vital Signs Last Recorded V/S: Last Vital Signs Temp 96.5 F L 12/01/19 11:15 Pulse 85 12/01/19 11:15 Resp 16 12/01/19 11:15 BP 136/86 12/01/19 11:15 Pulse Ox 100 12/01/19 11:15 - Orders/Labs/Meds Labs: Laboratory Tests 12/01/19 12/01/19 12/01/19 Range/Units 11:43 11:43 11:43 WBC 8.2 (5.0-10.0) 10^3/uL RBC 4.71 (4.6-6.2) 10^6/uL Hgb 14.8 (14.0-18.0) g/dL Hct 40.9 (40.0-54.0) % MCV 86.8 (80-100) fL MCH 31.4 (27.0-34.0) pg MCHC 36.2 H (33.0-35.0) g/dL Plt Count 175 (150-450) 10^3/uL Neut % (Auto) 48.1 (42.2-75.2) % Lymph % (Auto) 36.6 (20.5-50.1) % [place] % (Auto) 14.1 H (2-8) % Eos % (Auto) 0.7 L (1.0-3.0) % Baso % (Auto) 0.5 (0.0-1.0) % Sodium 128 L (135-145) mmol/L Potassium 4.0 (3.6-5.0) mmol/L Chloride 96 L (101-111) mmol/L Carbon Dioxide 23.0 (21.0-31.0) mmol/L Anion Gap 13.0 BUN 13 (7-18) mg/dL Creatinine 0.8 (0.6-1.3) mg/dL Est Cr Clr Drug Dosing 117.56 mL/min Estimated GFR (MDRD) > 60 BUN/Creatinine Ratio 16.25 Glucose 316 H (74-105) mg/dL Lactic Acid 1.1 (0.5-2.0) mmol/L Calcium 8.6 (8.4-10.2) mg/dl Total Bilirubin 0.5 (0.2-1.0) mg/dL AST 66 H (10-42) IU/L ALT 111 H (10-60) IU/L Alkaline Phosphatase 133 H (42-121) IU/L Total Protein 8.2 (6.7-8.2) g/dl Albumin 3.8 (3.2-5.5) g/dl Globulin 4.4 Albumin/Globulin Ratio 0.86 Ethyl Alcohol < 5 mg/dL Meds: Medications Discontinued Medications Generic Name Dose Route Start Last Admin Trade Name Freq PRN Reason Stop Dose Admin Bacitracin 1 dose 12/01/19 12:21 12/01/19 12:26 Bacitracin Oint 1 Gm TOP 12/01/19 12:22 1 dose ONETIME ONE Administration Diphenhydramine HCl 25 mg 12/01/19 12:12 12/01/19 12:26 Benadryl PO 12/01/19 12:13 25 mg ONETIME ONE Administration Vancomycin HCl 1,250 mg/ 250 mls @ 166.667 mls/hr 12/01/19 12:11 12/01/19 12: 22 Sodium Chloride IV 12/01/19 13:40 166.667 mls/hr ONETIME ONE Administration Departure - Departure Time of Disposition: 13:46 Disposition: Home, Self-Care 01 Condition: Good Clinical Impression: Skin infection - Discharge Information *PRESCRIPTION DRUG MONITORING PROGRAM REVIEWED*: No *COPY OF PRESCRIPTION DRUG MONITORING REPORT IN PATIENT SEMAJ: No Instructions: Cellulitis, Adult, [id number] Referrals: PCP,None [Primary Care Provider] - Forms: ED Department Discharge Additional Instructions: doxycycline,100mg one twice daily tylenol 650mg every 4 hours as needed for discomfort/ fever warm soak soapy water three times daily recheck in clinic on Tuesday sooner if worsening Sepsis Event Note - Evaluation Sepsis Screening Result: No Definite Risk - Focused Exam Date Exam was Performed: 12/02/19 Time Exam was Performed: 15:32
== END 2019-12-01 14:00 | disposition home or self-care (01) ==
LOC: DL.ED 11:15
DX: L84 Corns and callosities (principal); I10 Essential (primary) hypertension; I25.2 Old myocardial infarction; E11.9 Type 2 diabetes mellitus without complications; F17.210 Nicotine dependence, cigarettes, uncomplicated; F32.9 Major depressive disorder, single episode, unspecified; Z79.84 Long term (current) use of oral hypoglycemic drugs; Z79.899 Other long term (current) drug therapy; Z91.018 Allergy to other foods
CPT/HCPCS: 36415; 73130; 80053; 80307; 83605; 85025; 87070; 87077; 87186; 96365; 99283; 99284; A9270; J3370; J7050

== ENCOUNTER 2019-12-09 13:46 | Emergency (ER) | payer MEDICAID, OTHER ==
[2019-12-09 13:56] VITALS: BP 143/83
[2019-12-09] MEDS ORDERED: Albuterol/Ipratropium 3.0-0.5 MG/3 ML Neb Soln NEB ONE (14:04)
--- NOTE | 2019-12-09 14:08 | EDM.PDOC ---
ED HPI GENERAL MEDICAL PROBLEM - General Chief Complaint: Respiratory Problem Stated Complaint: COLD Time Seen by Provider: 12/09/19 14:05 Source of Information: Reports: Patient History Limitations: Reports: No Limitations - History of Present Illness INITIAL COMMENTS - FREE TEXT/NARRATIVE: sick with cough past 2 weeks, not getting better not seen anyone. Abdomen Pain Score (Numeric/FACES): 1 - Related Data Allergies Allergy/AdvReac Type Severity Reaction Status Date / Time pineapple Allergy Other Verified 12/09/19 13:56 Home Meds: Home Meds Lisinopril 20 mg PO DAILY 02/20/15 [History] metFORMIN HCl [Metformin HCl] 1,000 mg PO DAILY 08/08/18 [History] Albuterol Sulfate [Proair Hfa] 2 puff INH ASDIRECTED PRN 05/10/19 [History] Past Medical History HEENT History: Reports: None Cardiovascular History: Reports: Hypertension, [place] Respiratory History: Reports: Asthma Gastrointestinal History: Reports: GERD, Jaundice, Pancreatitis Genitourinary History: Reports: None Musculoskeletal History: Reports: Fracture Other Musculoskeletal History: left jaw Neurological History: Reports: None Psychiatric History: Reports: Addiction, Depression Other Psychiatric History: insomnia Endocrine/Metabolic History: Reports: Diabetes, Type II Hematologic History: Reports: None Immunologic History: Reports: None Oncologic (Cancer) History: Reports: None Dermatologic History: Reports: None - Infectious Disease History Infectious Disease History: Reports: Chicken Pox, Measles, Mumps - Past Surgical History Head Surgeries/Procedures: Reports: None HEENT Surgical History: Reports: Other (See Below) Other HEENT Surgeries/Procedures: jaw wired shut Other Musculoskeletal Surgeries/Procedures:: right lower leg surgery Social & Family History - Family History Family Medical History: Noncontributory - Tobacco Use Smoking Status *Q: Current Every Day Smoker Years of Tobacco use: 20 Packs/Tins Daily: 0.5 Second Hand Smoke Exposure: No - Caffeine Use Caffeine Use: Reports: Coffee, Soda - Living Situation & Occupation Living situation: Reports: with Family Occupation: Unemployed ED ROS GENERAL - Review of Systems Review Of Systems: Comprehensive ROS is negative, except as noted in HPI. ED EXAM, GENERAL - Physical Exam Exam: See Below Exam Limited By: No Limitations General Appearance: Alert, WD/WN, Mild Distress, Other (cough spasms) Ears: Hearing Grossly Normal Throat/Mouth: Normal Voice, No Airway Compromise Head: Atraumatic Neck: Non-Tender, Full Range of Motion Respiratory/Chest: No Accessory Muscle Use, Decreased Breath Sounds, Rhonchi, Wheezing Cardiovascular: Regular Rate, Rhythm GI/Abdominal: Soft, Non-Tender Neurological: Alert, Oriented, Normal Cognition, Normal Gait, No Motor/Sensory Deficits Psychiatric: Flat Affect Skin Exam: Warm, Dry, Normal Color Lymphatic: No Adenopathy Course - Vital Signs Last Recorded V/S: Last Vital Signs Temp 36.3 C 12/09/19 13:50 Pulse 100 12/09/19 14:11 Resp 18 12/09/19 13:50 BP 143/83 H 12/09/19 13:50 Pulse Ox 99 12/09/19 13:50 - Orders/Labs/Meds Orders: Active Orders 24 hr Category Date Time Status RT Aerosol Therapy [RC] ASDIRECTED Care 12/09/19 14:05 Active Chest 2V [CR] Urgent Exams 12/09/19 14:02 Taken Meds: Medications Discontinued Medications Generic Name Dose Route Start Last Admin Trade Name Eboni PRN Reason Stop Dose Admin Albuterol/Ipratropium 3 ml 12/09/19 14:04 12/09/19 14:35 Duoneb 3.0-0.5 Mg/3 Ml NEB 12/09/19 14:05 3 ml ONETIME ONE Administration - Re-Assessments/Exams Free Text/Narrative Re-Assessment/Exam: 12/09/19 14:49 pt not in room. Departure - Departure Time of Disposition: 14:49 Disposition: Eloped 07 Condition: Fair Clinical Impression: Bronchitis, Poor compliance - Discharge Information Forms: ED Department Discharge Sepsis Event Note - Evaluation Sepsis Screening Result: No Definite Risk - Focused Exam Vital Signs: Vital Signs Temp Pulse Resp BP Pulse Ox 12/09/19 14:11 100 12/09/19 13:50 36.3 C 105 H 18 143/83 H 99 Date Exam was Performed: 12/09/19 Time Exam was Performed: 14:49 - My Orders Last 24 Hours: My Active Orders 12/09/19 14:02 Chest 2V [CR] Urgent 12/09/19 14:05 RT Aerosol Therapy [RC] ASDIRECTED - Assessment/Plan Last 24 Hours: My Active Orders 12/09/19 14:02 Chest 2V [CR] Urgent 12/09/19 14:05 RT Aerosol Therapy [RC] ASDIRECTED
[2019-12-09 14:13] VITALS: PULSE 100
== END 2019-12-09 15:00 | disposition left against medical advice (07) ==
LOC: DL.ED 13:46
DX: J40 Bronchitis, not specified as acute or chronic (principal); Z91.14 Patient's other noncompliance with medication regimen; I10 Essential (primary) hypertension; E11.9 Type 2 diabetes mellitus without complications; I25.2 Old myocardial infarction; F17.210 Nicotine dependence, cigarettes, uncomplicated; Z91.018 Allergy to other foods; Z79.84 Long term (current) use of oral hypoglycemic drugs; Z79.899 Other long term (current) drug therapy
CPT/HCPCS: 71046; 94640; 99283; 99283-25; J7620-GY

== ENCOUNTER 2019-12-25 20:58 | Emergency (ER) | payer MEDICAID, OTHER ==
[2019-12-25] MEDS ORDERED: Mupirocin Oint 22 GM Tube TOP ONE (20:59)
[2019-12-25] MEDS ORDERED: Doxycycline 100 MG Cap PO ONE (20:59)
[2019-12-25 21:04] VITALS: BP 138/97; PULSE 71
[2019-12-25] MEDS ORDERED: Doxycycline 100 MG Cap ONE (21:12)
[2019-12-25] MEDS ORDERED: Mupirocin Oint 22 GM Tube ONE (21:13)
--- NOTE | 2019-12-25 21:20 | EDM.PDOC ---
ED HPI GENERAL MEDICAL PROBLEM - General Chief Complaint: Skin Complaint Stated Complaint: AMBULANCE Time Seen by Provider: 12/25/19 21:15 Source of Information: Reports: Patient History Limitations: Reports: No Limitations - History of Present Illness INITIAL COMMENTS - FREE TEXT/NARRATIVE: right 1st finger swollen red hot, open, small blisters, cut with knife few days ago, area seemed to heal and past w days increased swellling of finger and extending to hand. Denies previous skin infections or hx or MRSA. Some chills, no fever. Right Finger-Index Pain Score (Numeric/FACES): 7 - Related Data Allergies Allergy/AdvReac Type Severity Reaction Status Date / Time pineapple Allergy Other Verified 12/09/19 13:56 Home Meds: Home Meds Lisinopril 20 mg PO DAILY 02/20/15 [History] metFORMIN HCl [Metformin HCl] 1,000 mg PO DAILY 08/08/18 [History] Albuterol Sulfate [Proair Hfa] 2 puff INH ASDIRECTED PRN 05/10/19 [History] Past Medical History HEENT History: Reports: None Cardiovascular History: Reports: Hypertension, [place] Respiratory History: Reports: Asthma Gastrointestinal History: Reports: GERD, Jaundice, Pancreatitis Genitourinary History: Reports: None Musculoskeletal History: Reports: Fracture Other Musculoskeletal History: left jaw Neurological History: Reports: None Psychiatric History: Reports: Addiction, Depression Other Psychiatric History: insomnia Endocrine/Metabolic History: Reports: Diabetes, Type II Hematologic History: Reports: None Immunologic History: Reports: None Oncologic (Cancer) History: Reports: None Dermatologic History: Reports: None - Infectious Disease History Infectious Disease History: Reports: Chicken Pox, Measles, Mumps - Past Surgical History Head Surgeries/Procedures: Reports: None HEENT Surgical History: Reports: Other (See Below) Other HEENT Surgeries/Procedures: jaw wired shut Other Musculoskeletal Surgeries/Procedures:: right lower leg surgery Social & Family History - Family History Family Medical History: Noncontributory - Tobacco Use Smoking Status *Q: Current Every Day Smoker Years of Tobacco use: 26 Packs/Tins Daily: 0.2 Used Tobacco, but Quit: No Second Hand Smoke Exposure: Yes - Caffeine Use Caffeine Use: Reports: Coffee, Soda - Recreational Drug Use Recreational Drug Use: No - Living Situation & Occupation Living situation: Reports: with Family Occupation: Unemployed ED ROS GENERAL - Review of Systems Review Of Systems: Comprehensive ROS is negative, except as noted in HPI. ED EXAM, SKIN/RASH Exam: See Below Exam Limited By: No Limitations General Appearance: Alert, No Apparent Distress Ears: Normal External Exam Nose: Normal Inspection Throat/Mouth: Normal Inspection Head: Atraumatic, Normocephalic Neck: Normal Inspection Respiratory/Chest: No Respiratory Distress, Lungs Clear, Normal Breath Sounds Cardiovascular: Regular Rate, Rhythm Back Exam: Full Range of Motion Extremities: Redness, Other (index finger swollen war, few staph type blister lateral [place] surface. 2mm open with scant white drainage. 5mm horizontal crack and DIPflexure fold. ) Neurological: Alert, Oriented, Normal Cognition Psychiatric: Normal Affect Skin: Warm, Dry, Intact, Normal Color, Erythema, Increased Warmth Course - Vital Signs Last Recorded V/S: Last Vital Signs Temp 97.7 F 12/25/19 20:59 Pulse 71 12/25/19 20:59 Resp 18 12/25/19 20:59 BP 138/97 H 12/25/19 20:59 Pulse Ox 98 12/25/19 20:59 - Orders/Labs/Meds Orders: Active Orders 24 hr Category Date Time Status Fingers Second Digit Rt F6 [CR] Urgent Exams 12/25/19 21:21 Taken CULTURE BLOOD [BC] Stat Lab 12/25/19 21:35 Received CULTURE WOUND [RM] Stat Lab 12/25/19 21:40 Received Labs: Laboratory Tests 12/25/19 12/25/19 Range/Units 21:35 21:35 WBC 6.3 (5.0-10.0) 10^3/uL RBC 4.33 L (4.6-6.2) 10^6/uL Hgb 13.3 L D (14.0-18.0) g/dL Hct 37.6 L (40.0-54.0) % MCV 86.8 (80-100) fL MCH 30.7 (27.0-34.0) pg MCHC 35.4 H (33.0-35.0) g/dL Plt Count 179 (150-450) 10^3/uL Neut % (Auto) 47.9 (42.2-75.2) % Lymph % (Auto) 37.7 (20.5-50.1) % [place] % (Auto) 12.8 H (2-8) % Eos % (Auto) 1.1 (1.0-3.0) % Baso % (Auto) 0.5 (0.0-1.0) % Sodium 133 L (136-145) mmol/L Potassium 3.9 (3.5-5.1) mmol/L Chloride 97 L (98-107) mmol/L Carbon Dioxide 29 (21-32) mmol/L Anion Gap 10.9 (7-13) mEq/L BUN 8 (7-18) mg/dL Creatinine 0.70 (0.70-1.30) mg/dL Est Cr Clr Drug Dosing 138.88 mL/min Estimated GFR (MDRD) > 60 BUN/Creatinine Ratio 11.4 (No establ ref range) Glucose 346 H (74-99) mg/dL Calcium 7.8 L (8.5-10.1) mg/dL Total Bilirubin 0.4 (0.2-1.0) mg/dL AST 90 H (15-37) U/L ALT 145 H (16-63) U/L Alkaline Phosphatase 265 H (46-116) U/L Total Protein 7.6 (6.4-8.2) g/dL Albumin 3.1 L (3.4-5.0) g/dL Globulin 4.5 Albumin/Globulin Ratio 0.69 Meds: Medications Discontinued Medications Generic Name Dose Route Start Last Admin Trade Name Freq PRN Reason Stop Dose Admin Ceftriaxone Sodium 1 gm/ 0 gm 12/25/19 21:29 12/25/19 22:00 Lidocaine HCl 2.1 ml IM 12/25/19 21:30 2.1 inj ONETIME ONE Administration Doxycycline Hyclate Confirm 12/25/19 21:12 12/25/19 22:02 Vibramycin Administered 12/25/19 21:13 Not Given Dose 200 mg .ROUTE .STK-MED ONE Mupirocin Confirm 12/25/19 21:13 12/25/19 22:02 Bactroban Oint Administered 12/25/19 21:14 Not Given Dose 22 gm .ROUTE .STK-MED ONE Departure - Departure Time of Disposition: 21:54 Disposition: Home, Self-Care 01 Condition: Good Clinical Impression: Skin infection, Hyperglycemia - Discharge Information *PRESCRIPTION DRUG MONITORING PROGRAM REVIEWED*: No *COPY OF PRESCRIPTION DRUG MONITORING REPORT IN PATIENT SEMAJ: No Instructions: Cellulitis, Adult Forms: ED Department Discharge Additional Instructions: warm [place] 2 times daily elevate dress with mupirocin 3 times daily doxycycline 100mg one twice daily follow up in clinic with scheduled appointment monitor and follow up if streaking, swelling of arm fever chills Sepsis Event Note - Evaluation Sepsis Screening Result: No Definite Risk - Focused Exam Vital Signs: Vital Signs Temp Pulse Resp BP Pulse Ox 12/25/19 20:59 97.7 F 71 18 138/97 H 98 Date Exam was Performed: 12/26/19 Time Exam was Performed: 03:05 - My Orders Last 24 Hours: My Active Orders 12/25/19 21:21 Fingers Second Digit Rt F6 [CR] Urgent 12/25/19 21:35 CULTURE BLOOD [BC] Stat 12/25/19 21:40 CULTURE WOUND [RM] Stat - Assessment/Plan Last 24 Hours: My Active Orders 12/25/19 21:21 Fingers Second Digit Rt F6 [CR] Urgent 12/25/19 21:35 CULTURE BLOOD [BC] Stat 12/25/19 21:40 CULTURE WOUND [RM] Stat
[2019-12-25] MEDS ORDERED: cefTRIAXone 1 GM, Lidocaine 1% 2.1 ML IM ONE ×2 (21:29)
[2019-12-25 21:59] LABS: ANION GAP 10.9 mEq/L (7-13); CHLORIDE,CL 97 mmol/L (98-107); SODIUM,NA 133 mmol/L (136-145)
== END 2019-12-25 22:19 | disposition home or self-care (01) ==
LOC: DL.ED 20:58
DX: L08.9 Local infection of the skin and subcutaneous tissue, unspecified (principal); E11.65 Type 2 diabetes mellitus with hyperglycemia; J45.909 Unspecified asthma, uncomplicated; I10 Essential (primary) hypertension; I25.2 Old myocardial infarction; F17.210 Nicotine dependence, cigarettes, uncomplicated; Z91.018 Allergy to other foods; Z79.899 Other long term (current) drug therapy; Z79.84 Long term (current) use of oral hypoglycemic drugs
CPT/HCPCS: 36415; 73140; 80053; 85025; 87040; 87070; 96372; 99284; A9270; J0696; J2001; 87077; 87186

== ENCOUNTER 2020-03-05 22:20 | Emergency (ER) | payer MEDICAID ==
[2020-03-05 22:28] VITALS: BP 168/99; PULSE 113
[2020-03-05] MEDS ORDERED: Lidocaine 1% 30 ML SDV INJECT ONE (23:16)
[2020-03-05] MEDS ORDERED: Rabies Vaccine (Avian) 2.5 Unit Inj Kit IM ONE (23:16)
[2020-03-05] MEDS ORDERED: Bacitracin Oint 1 GM U/D Packet TOP ONE (23:16)
--- NOTE | 2020-03-06 02:38 | EDM.PDOC ---
ED HPI GENERAL MEDICAL PROBLEM - General Chief Complaint: Bite:Animal, Insect Stated Complaint: bit by dog Time Seen by Provider: 03/05/20 22:40 Source of Information: Reports: Patient, RN, RN Notes Reviewed History Limitations: Reports: No Limitations - History of Present Illness INITIAL COMMENTS - FREE TEXT/NARRATIVE: Patient presents to ER with complaint of laceration to the ventral aspect of the left hand. Patient states he was bit by a dog "earlier today". And asked what time, the patient states that may be 4 to 5 hours ago. This is conflicting from the time. He gave to the nurse upon triage which was approximately 1:00 this morning. Patient states he does not know who owns the dog, states he will never see the dog again, knows nothing about its rabies status. Patient asks if I can just "sew up his hand ". When asked if this was reported to the police patient became agitated. Patient was informed of the rabies vaccination schedule, told he would need to have multiple injections of rabies vaccination. Patient states at one point he does not think this is necessary and states "I just want my hand sewed up." Onset: Today Left Hand Pain Score (Numeric/FACES): 4 - Related Data Allergies Allergy/AdvReac Type Severity Reaction Status Date / Time pineapple Allergy Other Verified 03/05/20 22:28 Home Meds: Home Meds Lisinopril 20 mg PO DAILY 02/20/15 [History] metFORMIN HCl [Metformin HCl] 1,000 mg PO DAILY 08/08/18 [History] Albuterol Sulfate [Proair Hfa] 2 puff INH ASDIRECTED PRN 05/10/19 [History] Past Medical History HEENT History: Reports: None Cardiovascular History: Reports: Hypertension, [place] Respiratory History: Reports: Asthma Gastrointestinal History: Reports: GERD, Jaundice, Pancreatitis Genitourinary History: Reports: None Musculoskeletal History: Reports: Fracture Other Musculoskeletal History: left jaw Neurological History: Reports: None Psychiatric History: Reports: Addiction, Depression Other Psychiatric History: insomnia Endocrine/Metabolic History: Reports: Diabetes, Type II Hematologic History: Reports: None Immunologic History: Reports: None Oncologic (Cancer) History: Reports: None Dermatologic History: Reports: None - Infectious Disease History Infectious Disease History: Reports: Chicken Pox, Measles, Mumps - Past Surgical History Head Surgeries/Procedures: Reports: None HEENT Surgical History: Reports: Other (See Below) Other HEENT Surgeries/Procedures: jaw wired shut Other Musculoskeletal Surgeries/Procedures:: right lower leg surgery Social & Family History - Family History Family Medical History: Noncontributory - Tobacco Use Smoking Status *Q: Current Every Day Smoker Years of Tobacco use: 27 Packs/Tins Daily: 0.4 Second Hand Smoke Exposure: Yes - Caffeine Use Caffeine Use: Reports: Coffee, Soda - Recreational Drug Use Recreational Drug Use: No - Living Situation & Occupation Living situation: Reports: with Family Occupation: Unemployed ED ROS GENERAL - Review of Systems Review Of Systems: Unable To Obtain Reason Not Obtained: Patient left prior to being obtained ED EXAM, ANIMAL BITE - Physical Exam Exam: Not Obtained Reason Not Obtained: Patient left prior to being obtained Course - Vital Signs Last Recorded V/S: Last Vital Signs Temp 97.9 F 03/05/20 22:23 Pulse 113 H 03/05/20 22:23 Resp 18 03/05/20 22:23 BP 168/99 H 03/05/20 22:23 Pulse Ox 100 03/05/20 22:23 - Orders/Labs/Meds Orders: Active Orders 24 hr Category Date Time Status Vaccines to be Administered [RC] PER UNIT ROUTINE Care 03/05/20 23:16 Active Meds: Medications Discontinued Medications Generic Name Dose Route Start Last Admin Trade Name Eboni PRN Reason Stop Dose Admin Bacitracin 1 dose 03/05/20 23:16 Bacitracin Oint 1 Gm TOP 03/05/20 23:17 ONETIME ONE Lidocaine HCl 30 ml 03/05/20 23:16 Xylocaine-Mpf 1% INJECT 03/05/20 23:17 ONETIME ONE Rabies Vaccine 2.5 unit 03/05/20 23:16 Raba[place] IM 03/05/20 23:17 .ONCE ONE Departure - Departure Time of Disposition: 23:27 Disposition: Against Medical Advice 07 Clinical Impression: Laceration Dog bite Qualifiers: Encounter type: initial encounter Qualified Code(s): W54.0XXA - Bitten by dog, initial encounter - Discharge Information *PRESCRIPTION DRUG MONITORING PROGRAM REVIEWED*: No *COPY OF PRESCRIPTION DRUG MONITORING REPORT IN PATIENT SEMAJ: No Forms: ED Department Discharge, Refusal of Care AMA Sepsis Event Note - Evaluation Sepsis Screening Result: No Definite Risk - Focused Exam Vital Signs: Vital Signs Temp Pulse Resp BP Pulse Ox 03/05/20 22:23 97.9 F 113 H 18 168/99 H 100 Date Exam was Performed: 03/06/20 Time Exam was Performed: 02:33 - My Orders Last 24 Hours: My Active Orders 03/05/20 23:16 Vaccines to be Administered [RC] PER UNIT ROUTINE - Assessment/Plan Last 24 Hours: My Active Orders 03/05/20 23:16 Vaccines to be Administered [RC] PER UNIT ROUTINE
== END 2020-03-05 23:27 | disposition left against medical advice (07) ==
LOC: DL.ED 22:20
DX: Z53.21 Procedure and treatment not carried out due to patient leaving prior to being seen by health care provider (principal)

== ENCOUNTER 2020-03-06 07:32 | Emergency (ER) | payer MEDICAID ==
--- NOTE | 2020-03-06 08:04 | EDM.PDOC ---
ED HPI GENERAL MEDICAL PROBLEM - General Chief Complaint: Bite:Animal, Insect Stated Complaint: BITE DOG Time Seen by Provider: 03/06/20 07:59 Source of Information: Reports: Patient, Old Records, RN, RN Notes Reviewed History Limitations: Reports: Other (Pt not willing to reveal complete HPI information.) - History of Present Illness INITIAL COMMENTS - FREE TEXT/NARRATIVE: Pt presents to ER by POV with c/o a dog bite wound to the left palm sustained sometime yesterday. Pt initially presented to the ER last night just after 2230HRS for evaluation of this same bite wound, but he became agitated and impatient, and chose to leave without being treated. Pt states he was intoxicated from alcohol yesterday, and does not recall where he was when the dog bit him. He does not know who the dog belongs to, or any details of the incident. He is not sure of what time of day the bite happened. He did not call animal control, and did not call the police. He is adamant that the police not know that he his here in the ER at this time. Pt states he came back to the ER at this time because the left hand is painful, getting red, and starting to swell. He then considers leaving AMA again because he "can't be here for long" and needs to move on. I explained the risks of potentially losing a hand or arm if he does not allow proper medical care, and he agrees to stay. He does not know when his last Tetanus vaccine was. 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 Pt denies chest pain, cough, shortness of breath, eye irritation/drainage, loss of taste or smell, red tongue, rash or skin lesions, abdominal pain, N/V/D, fevers, chills, recent travel, or known exposure to confirmed or suspected Covid -19 cases. Onset: Unknown/Unsure Onset Date: 03/05/20 Duration: Constant, Getting Worse Location: Reports: Upper Extremity, Left Quality: Reports: Ache, Throbbing Severity: Moderate Improves with: Reports: None Worsens with: Reports: Movement Context: Reports: Other (Dog bite) Associated Symptoms: Reports: No Other Symptoms - Related Data Allergies Allergy/AdvReac Type Severity Reaction Status Date / Time pineapple Allergy Other Verified 06/04/20 08:01 Home Meds: Home Meds Lisinopril 20 mg PO DAILY 02/20/15 [History] metFORMIN HCl [Metformin HCl] 1,000 mg PO DAILY 08/08/18 [History] Albuterol Sulfate [Proair Hfa] 2 puff INH ASDIRECTED PRN 05/10/19 [History] Past Medical History HEENT History: Reports: None Cardiovascular History: Reports: Hypertension, [place] Respiratory History: Reports: Asthma Gastrointestinal History: Reports: GERD, Jaundice, Pancreatitis Genitourinary History: Reports: None Musculoskeletal History: Reports: Fracture Other Musculoskeletal History: left jaw Neurological History: Reports: None Psychiatric History: Reports: Addiction, Depression Other Psychiatric History: insomnia Endocrine/Metabolic History: Reports: Diabetes, Type II Hematologic History: Reports: None Immunologic History: Reports: None Oncologic (Cancer) History: Reports: None Dermatologic History: Reports: None - Infectious Disease History Infectious Disease History: Reports: Chicken Pox, Measles, Mumps - Past Surgical History Head Surgeries/Procedures: Reports: None HEENT Surgical History: Reports: Other (See Below) Other HEENT Surgeries/Procedures: jaw wired shut Other Musculoskeletal Surgeries/Procedures:: right lower leg surgery Social & Family History - Family History Family Medical History: Noncontributory - Tobacco Use Smoking Status *Q: Current Every Day Smoker Tobacco Use Within Last Twelve Months: Cigarettes Smoking Cessation Information Provided To Patient: Patient Refused - Caffeine Use Caffeine Use: Reports: Coffee, Soda - Alcohol Use Alcohol Use History: Yes Days Per Week of Alcohol Use: 7 (Heavy daily drinker) Alcohol Use Frequency: Daily - Living Situation & Occupation Living situation: Reports: with Family Occupation: Unemployed ED ROS GENERAL - Review of Systems Review Of Systems: Comprehensive ROS is negative, except as noted in HPI. ED EXAM, ANIMAL BITE - Physical Exam Exam: See Below Exam Limited By: No Limitations General Appearance: Alert, No Apparent Distress, Other (Covered in dried mud/ dirt at B/L upper and lower extremities.) Eye Exam: Bilateral Eye: Normal Inspection (No scleral icterus.) Nose: Normal Inspection, Normal Mucosa, No Blood Throat/Mouth: Normal Lips, Normal Voice, No Airway Compromise Head: Atraumatic, Normocephalic Neck: Normal Inspection, Supple, Non-Tender, Full Range of Motion Respiratory/Chest: No Respiratory Distress, Lungs Clear, Normal Breath Sounds, No Accessory Muscle Use, Chest Non-Tender Cardiovascular: Normal Peripheral Pulses, Regular Rate, Rhythm Peripheral Pulses: 3+: Radial (L), Radial (R) Back Exam: Normal Inspection Extremities: Normal Capillary Refill, Other (Left palm large puncture wound consistent w/Hx of dog bite, regional soft tissue swelling of the thenar eminence with tenderness and erythema, normal ROM of thumb and wrist with report or pain. No drainage. No regional lymphadenopathy. No proximally spreading erythema. Dorsal left hand is normal to exam.) Neurological: Alert, Oriented, Normal Cognition, Normal Gait, No Motor/Sensory Deficits Psychiatric: Anxious Course - Vital Signs Last Recorded V/S: Last Vital Signs Temp 97.9 F 03/06/20 08:11 Pulse 98 03/06/20 08:11 Resp 18 03/06/20 08:11 BP 182/92 H 03/06/20 08:11 Pulse Ox 100 03/06/20 08:11 - Orders/Labs/Meds Orders: Active Orders 24 hr Category Date Time Status Peripheral IV Care [RC] . DIRECTED Care 03/06/20 07:51 Active Vaccines to be Administered [RC] PER UNIT ROUTINE Care 03/06/20 07:58 Active Vaccines to be Administered [RC] PER UNIT ROUTINE Care 03/06/20 08:20 Active Sodium Chloride 0.9% [Saline Flush] Med 03/06/20 07:51 Active 10 ml FLUSH ASDIRECTED PRN Peripheral IV Insertion Adult [OM.PC] Stat Oth 03/06/20 07:51 Ordered Medication Orders Sodium Chloride (Saline Flush) 10 ml FLUSH ASDIRECTED PRN PRN Reason: Keep Vein Open Last Admin: 03/06/20 08:24 Dose: 10 ml Labs: Laboratory Tests 03/06/20 03/06/20 Range/Units 07:56 07:56 WBC 12.0 H (5.0-10.0) 10^3/uL RBC 4.69 (4.6-6.2) 10^6/uL Hgb 14.5 (14.0-18.0) g/dL Hct 41.4 (40.0-54.0) % MCV 88.3 (80-100) fL MCH 30.9 (27.0-34.0) pg MCHC 35.0 (33.0-35.0) g/dL Plt Count 191 (150-450) 10^3/uL Neut % (Auto) 61.5 (42.2-75.2) % Lymph % (Auto) 27.6 (20.5-50.1) % [place] % (Auto) 10.3 H (2-8) % Eos % (Auto) 0.3 L (1.0-3.0) % Baso % (Auto) 0.3 (0.0-1.0) % Sodium 136 (136-145) mmol/L Potassium 3.5 (3.5-5.1) mmol/L Chloride 98 (98-107) mmol/L Carbon Dioxide 27 (21-32) mmol/L Anion Gap 14.5 H (7-13) mEq/L BUN 7 (7-18) mg/dL Creatinine 0.66 L (0.70-1.30) mg/dL Est Cr Clr Drug Dosing 147.29 mL/min Estimated GFR (MDRD) > 60 BUN/Creatinine Ratio 10.6 (No establ ref range) Glucose 201 H (74-99) mg/dL Calcium 8.1 L (8.5-10.1) mg/dL Total Bilirubin 0.7 (0.2-1.0) mg/dL AST 155 H (15-37) U/L ALT 230 H (16-63) U/L Alkaline Phosphatase 126 H (46-116) U/L C-Reactive Protein 1.9 H (0.0-0.9) mg/dL Total Protein 8.3 H (6.4-8.2) g/dL Albumin 3.6 (3.4-5.0) g/dL Globulin 4.7 Albumin/Globulin Ratio 0.8 Ethyl Alcohol 68 (0) mg/dL Meds: Medications Generic Name Dose Route Start Last Admin Trade Name Freq PRN Reason Stop Dose Admin Sodium Chloride 10 ml 03/06/20 07:51 03/06/20 08:24 Saline Flush FLUSH 10 ml ASDIRECTED PRN Administration Keep Vein Open Discontinued Medications Generic Name Dose Route Start Last Admin Trade Name Freq PRN Reason Stop Dose Admin Bacitracin 1 dose 03/06/20 08:20 03/06/20 08:32 Bacitracin Oint 1 Gm TOP 03/06/20 08:21 1 dose ONETIME ONE Administration Diphtheria/Tetanus/Acell Pertussis 0.5 ml 03/06/20 07:58 03/06/20 08:23 Adacel IM 03/06/20 07:59 0.5 ml .ONCE ONE Administration Piperacillin Sod/Tazobactam 100 mls @ 200 mls/hr 03/06/20 07:54 03/06/20 08: 22 Sod 4.5 gm/ Sodium Chloride IV 03/06/20 08:23 200 mls/hr ONETIME ONE Administration Sodium Chloride 1,000 mls @ 999 mls/hr 03/06/20 07:53 03/06/20 08:22 Normal Saline IV 03/06/20 08:53 999 mls/hr .BOLUS ONE Administration Rabies Immune Globulin 1,500 unit 03/06/20 08:45 03/06/20 08:58 Hyperrab 300 Unit/Ml Vial IM 03/06/20 08:46 1,500 unit ONETIME ONE Administration Rabies Immune Globulin 150 unit 03/06/20 08:45 03/06/20 08:57 Hyperrab 300 Unit/Ml Vial IM 03/06/20 08:46 150 unit ONETIME ONE Administration Rabies Vaccine 2.5 unit 03/06/20 08:30 03/06/20 08:54 Rabavert IM 03/06/20 08:31 2.5 unit .ONCE ONE Administration - Re-Assessments/Exams Free Text/Narrative Re-Assessment/Exam: 03/06/20 08:05 Pt refuses Rabies vaccine and R.I.G. Pt is very anxious that the police not become involved in the dog bite, and not be notified that he is here in the ER. He will not say why he is fearful of encountering law enforcement. Departure - Departure Time of Disposition: 09:16 Disposition: Home, Self-Care 01 Condition: Good Clinical Impression: Dog bite of left hand with infection Qualifiers: Encounter type: initial encounter Qualified Code(s): S61.452A - Open bite of left hand, initial encounter; L08.9 - Local infection of the skin and subcutaneous tissue, unspecified; W54.0XXA - Bitten by dog, initial encounter - Discharge Information *PRESCRIPTION DRUG MONITORING PROGRAM REVIEWED*: Not Applicable *COPY OF PRESCRIPTION DRUG MONITORING REPORT IN PATIENT SEMAJ: Not Applicable Instructions: Animal Bite, Adult, [id number], Wound Infection, [id number] Forms: ED Department Discharge Additional Instructions: Rx: Clindamycin 300mg Rx: Augmentin 875mg Rx: Bactroban Ointment 2% Follow up with Rabies injection schedule as instructed. Follow up in clinic tomorrow for wound recheck. Sepsis Event Note - Focused Exam Vital Signs: Vital Signs Temp Pulse Resp BP Pulse Ox 03/06/20 08:11 97.9 F 98 18 182/92 H 100 Date Exam was Performed: 03/06/20 Time Exam was Performed: 09:16 - My Orders Last 24 Hours: My Active Orders 03/06/20 07:51 Peripheral IV Care [RC] . DIRECTED Sodium Chloride 0.9% [Saline Flush] 10 ml FLUSH ASDIRECTED PRN Peripheral IV Insertion Adult [OM.PC] Stat 03/06/20 07:58 Vaccines to be Administered [RC] PER UNIT ROUTINE 03/06/20 08:20 Vaccines to be Administered [RC] PER UNIT ROUTINE - Assessment/Plan Last 24 Hours: My Active Orders 03/06/20 07:51 Peripheral IV Care [RC] . DIRECTED Sodium Chloride 0.9% [Saline Flush] 10 ml FLUSH ASDIRECTED PRN Peripheral IV Insertion Adult [OM.PC] Stat 03/06/20 07:58 Vaccines to be Administered [RC] PER UNIT ROUTINE 03/06/20 08:20 Vaccines to be Administered [RC] PER UNIT ROUTINE
[2020-03-06 08:13] VITALS: BP 182/92; PULSE 98
[2020-03-06] MEDS ORDERED: Rabies Immune Globulin/PF 300 UNIT/ML 5 ML SDV IM ONE (08:19)
[2020-03-06 08:21] LABS: ANION GAP 14.5 mEq/L (7-13); CHLORIDE,CL 98 mmol/L (98-107); SODIUM,NA 136 mmol/L (136-145)
[2020-03-06] MEDS: Sodium Chloride 0.9% 1,000 ML IV ONE (08:22)
[2020-03-06] MEDS: Piperacillin/Tazobactam 4.5 GM in Sodium Chloride 0.9% 100 ML IV ONE (08:22)
[2020-03-06] MEDS: Diphtheria,Pertussis(Acell),Tetanus Vaccine 0.5 ML SDV IM ONE (08:23)
[2020-03-06] MEDS: Sodium Chloride 0.9% 10 ML Syringe FLUSH PRN (08:24)
[2020-03-06] MEDS: Bacitracin Oint 1 GM U/D Packet TOP ONE (08:32)
[2020-03-06] MEDS: Rabies Vaccine (Avian) 2.5 Unit Inj Kit IM ONE (08:54)
[2020-03-06] MEDS: Rabies Immune Globulin/PF 300 UNIT/ML 1 ML SDV IM ONE (08:57)
[2020-03-06] MEDS: Rabies Immune Globulin/PF 300 UNIT/ML 5 ML SDV IM ONE (08:58)
== END 2020-03-06 09:24 | disposition home or self-care (01) ==
LOC: DL.ED 07:32
DX: S61.452A Open bite of left hand, initial encounter (principal); L08.9 Local infection of the skin and subcutaneous tissue, unspecified; I10 Essential (primary) hypertension; I25.2 Old myocardial infarction; E11.9 Type 2 diabetes mellitus without complications; J45.909 Unspecified asthma, uncomplicated; Z23 Encounter for immunization; Z91.018 Allergy to other foods; Z79.84 Long term (current) use of oral hypoglycemic drugs; Z79.899 Other long term (current) drug therapy; W54.0XXA Bitten by dog, initial encounter
CPT/HCPCS: 36415; 80053; 80307; 85025; 86140; 90375; 90471; 90472; 90675; 90715; 96365; 96372; 99283; J2543; J7030; J7050

== ENCOUNTER 2020-04-03 01:38 | Emergency (ER) | payer MEDICAID ==
[2020-04-03 01:44] VITALS: BP 162/99; PULSE 102
== END 2020-04-03 01:48 | disposition left against medical advice (07) ==
LOC: DL.ED 01:38
DX: Z53.21 Procedure and treatment not carried out due to patient leaving prior to being seen by health care provider (principal)

== ENCOUNTER 2020-06-20 12:34 | Emergency (ER) | payer MEDICAID ==
[2020-06-20 12:43] VITALS: BP 130/79; PULSE 90
[2020-06-20] MEDS ORDERED: Ibuprofen 800 MG Tab PO ONE (13:01)
--- NOTE | 2020-06-20 13:02 | EDM.PDOC ---
ED HPI GENERAL MEDICAL PROBLEM - General Chief Complaint: Lower Extremity Injury/Pain Stated Complaint: KNEE PAIN Time Seen by Provider: 06/20/20 12:55 Source of Information: Reports: Patient, RN, RN Notes Reviewed History Limitations: Reports: No Limitations - History of Present Illness INITIAL COMMENTS - FREE TEXT/NARRATIVE: Patient presents to ER with complaint of left knee pain. States the knee pain began approximately 1 week ago. Denies any trauma to the knee. States he has been using Tylenol and ibuprofen for the pain. Onset: Gradual Left Knee Pain Score (Numeric/FACES): 8 - Related Data Allergies Allergy/AdvReac Type Severity Reaction Status Date / Time pineapple Allergy Other Verified 06/20/20 12:43 Home Meds: Home Meds Lisinopril 20 mg PO DAILY 02/20/15 [History] metFORMIN HCl [Metformin HCl] 1,000 mg PO DAILY 08/08/18 [History] Albuterol Sulfate [Proair Hfa] 2 puff INH ASDIRECTED PRN 05/10/19 [History] Past Medical History HEENT History: Reports: None Cardiovascular History: Reports: Hypertension, [place] Respiratory History: Reports: Asthma Gastrointestinal History: Reports: GERD, Jaundice, Pancreatitis Genitourinary History: Reports: None Musculoskeletal History: Reports: Fracture Other Musculoskeletal History: left jaw Neurological History: Reports: None Psychiatric History: Reports: Addiction, Depression Other Psychiatric History: insomnia Endocrine/Metabolic History: Reports: Diabetes, Type II Hematologic History: Reports: None Immunologic History: Reports: None Oncologic (Cancer) History: Reports: None Dermatologic History: Reports: None - Infectious Disease History Infectious Disease History: Reports: Chicken Pox - Past Surgical History Head Surgeries/Procedures: Reports: None HEENT Surgical History: Reports: Other (See Below) Other HEENT Surgeries/Procedures: jaw wired shut Other Musculoskeletal Surgeries/Procedures:: right lower leg surgery Social & Family History - Family History Family Medical History: Noncontributory - Tobacco Use Smoking Status *Q: Current Every Day Smoker Years of Tobacco use: 27 Packs/Tins Daily: 0.5 Second Hand Smoke Exposure: No - Caffeine Use Caffeine Use: Reports: Coffee - Recreational Drug Use Recreational Drug Use: No - Living Situation & Occupation Living situation: Reports: with Family Occupation: Unemployed Review of Systems - Review of Systems Review Of Systems: Comprehensive ROS is negative, except as noted in HPI. ED EXAM, GENERAL - Physical Exam Exam: See Below Exam Limited By: No Limitations General Appearance: Alert, WD/WN, No Apparent Distress Eye Exam: Bilateral Eye: EOMI, Normal Inspection Ears: Normal External Exam, Hearing Grossly Normal Nose: Normal Inspection Throat/Mouth: Normal Inspection, Normal Voice, No Airway Compromise Head: Atraumatic, Normocephalic Neck: Normal Inspection, Supple, Non-Tender, Full Range of Motion Respiratory/Chest: No Respiratory Distress, Lungs Clear, Normal Breath Sounds, No Accessory Muscle Use, Chest Non-Tender Cardiovascular: Normal Peripheral Pulses, Regular Rate, Rhythm, No Edema, No Gallop, No JVD, No Murmur, No Rub GI/Abdominal: Normal Bowel Sounds, Soft, Non-Tender, No Organomegaly, No Distention, No Abnormal Bruit, No Mass (Male) Exam: Deferred Rectal (Males) Exam: Deferred Back Exam: Normal Inspection, Full Range of Motion, NT Extremities: Normal Inspection, Normal Range of Motion, Non-Tender, No Pedal Edema, Normal Capillary Refill, Joint Swelling (left knee, minimal) Neurological: Alert, Oriented, CN II-XII Intact, Normal Cognition, Normal Gait, Normal Reflexes, No Motor/Sensory Deficits Psychiatric: Normal Affect, Normal Mood Skin Exam: Warm, Dry, Intact, Normal Color, No Rash Lymphatic: No Adenopathy Course - Vital Signs Last Recorded V/S: Last Vital Signs Temp 97.1 F 06/20/20 12:42 Pulse 90 06/20/20 12:42 Resp 16 06/20/20 12:42 BP 130/79 06/20/20 12:42 Pulse Ox 99 06/20/20 12:42 - Orders/Labs/Meds Meds: Medications Discontinued Medications Generic Name Dose Route Start Last Admin Trade Name Eboni PRN Reason Stop Dose Admin Ibuprofen 800 mg 06/20/20 13:01 06/20/20 13:06 Motrin PO 06/20/20 13:02 800 mg ONETIME ONE Administration Departure - Departure Time of Disposition: 13:11 Disposition: Against Medical Advice 07 Condition: Good Clinical Impression: Knee pain Qualifiers: Chronicity: acute Laterality: left Qualified Code(s): M25.562 - Pain in left knee - Discharge Information *PRESCRIPTION DRUG MONITORING PROGRAM REVIEWED*: No *COPY OF PRESCRIPTION DRUG MONITORING REPORT IN PATIENT SEMAJ: No Forms: ED Department Discharge, Refusal of Care AMA Sepsis Event Note (ED) - Evaluation Sepsis Screening Result: No Definite Risk - Focused Exam Vital Signs: Vital Signs Temp Pulse Resp BP Pulse Ox 06/20/20 12:42 97.1 F 90 16 130/79 99
== END 2020-06-20 13:08 | disposition left against medical advice (07) ==
LOC: DL.ED 12:34
DX: M25.562 Pain in left knee (principal); I10 Essential (primary) hypertension; I25.2 Old myocardial infarction; J45.909 Unspecified asthma, uncomplicated; E11.9 Type 2 diabetes mellitus without complications; Z79.84 Long term (current) use of oral hypoglycemic drugs; Z79.899 Other long term (current) drug therapy; Z91.018 Allergy to other foods
CPT/HCPCS: 99282; 99283; A9270-GY

== ENCOUNTER 2020-09-21 15:04 | Inpatient (IN) | payer MEDICAID ==
[2020-09-21] MEDS ORDERED: MVI, Adult with Vitamin K 10 ML, Folic Acid 1 MG, Thiamine 100 MG in Lactated Ringers 1... IV ONE ×4 (15:06)
[2020-09-21] MEDS ORDERED: Lactated Ringers 1,000 ML IV ONE (15:53)
[2020-09-21 15:55] LABS: ANION GAP 23.9 mEq/L (7-13); CHLORIDE,CL 84 mmol/L (98-107)
[2020-09-21 15:58] LABS: ACETAMINOPHEN 0 ug/mL (10-30 (Therapeutic)); SODIUM,NA 119 mmol/L (136-145)
[2020-09-21] MEDS ORDERED: Magnesium Sulfate/D5W 1 GM/100 ML BAG IV ONE (16:09)
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
[2020-09-21] MEDS ORDERED: Iopamidol 612 MG/ML 100 ML Bottle IVPUSH ONE (16:29)
[2020-09-21] MEDS ORDERED: Sodium Chloride 0.9% 1,000 ML IV ONE (16:38)
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
[2020-09-21] MEDS ORDERED: Piperacillin/Tazobactam 3.375 GM in Sodium Chloride 0.9% 100 ML IV ONE (17:47)
[2020-09-21] MEDS ORDERED: Azithromycin 500 MG in Sodium Chloride 0.9% 250 ML IV ONE (17:47)
[2020-09-21] MEDS ORDERED: Albuterol 0.083% 2.5 MG/3 ML Neb Soln NEB PRN (18:15)
[2020-09-21] MEDS ORDERED: Insulin Lispro 100 Units/ML 3 ML Vial SUBCUT SCH (18:15)
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
[2020-09-21] MEDS: Piperacillin/Tazobactam 3.375 GM in Sodium Chloride 0.9% 100 ML IV SCH (19:12)
[2020-09-21] MEDS: guaiFENesin/Dextromethorphan 100-10 MG/5 ML Soln 5 ML Cup PO PRN (19:38)
[2020-09-21] MEDS: Insulin Lispro 100 Units/ML 3 ML Vial SUBCUT SCH (20:57)
[2020-09-21] MEDS ORDERED: 50% Dextrose in Water 50 ML Syringe IV PRN (21:03)
[2020-09-21] MEDS ORDERED: Glucagon,Human Recombinant 1 MG Vial IM PRN (21:03)
[2020-09-21] MEDS ORDERED: Insulin Glarg,Human.Rec.Analog 100 Unit/ML SUBCUT ONE (21:15)
[2020-09-21] MEDS: Acetaminophen 325 MG Tab PO PRN (21:38)
[2020-09-21] MEDS: LORazepam 1 MG Tab PO PRN (21:38)
[2020-09-22] MEDS: guaiFENesin/Dextromethorphan 100-10 MG/5 ML Soln 5 ML Cup PO PRN ×4 (00:46→21:21)
[2020-09-22] MEDS: LORazepam 1 MG Tab PO PRN ×2 (00:46→02:39)
[2020-09-22] MEDS: Piperacillin/Tazobactam 3.375 GM in Sodium Chloride 0.9% 100 ML IV SCH ×3 (02:14→18:14)
[2020-09-22] MEDS: Sodium Chloride 0.9% 1,000 ML IV SCH ×2 (02:16→10:49)
[2020-09-22] MEDS: Morphine 2 MG/ML SYRINGE IVPUSH PRN ×2 (03:30→10:55)
[2020-09-22 06:51] LABS: ANION GAP 13.9 mEq/L (7-13); CHLORIDE,CL 93 mmol/L (98-107); SODIUM,NA 128 mmol/L (136-145)
[2020-09-22] MEDS: LORazepam 2 MG/ML SDV IVPUSH PRN ×3 (07:42→11:53)
[2020-09-22] MEDS: Ondansetron 4 MG/2 ML SDV IVPUSH PRN ×2 (07:42→13:29)
[2020-09-22] MEDS: Acetaminophen 325 MG Tab PO PRN ×3 (07:43→16:18)
[2020-09-22] MEDS ORDERED: 50% Dextrose in Water 50 ML Syringe IV PRN (08:47)
[2020-09-22] MEDS ORDERED: Glucagon,Human Recombinant 1 MG Vial IM PRN (08:47)
[2020-09-22] MEDS: Insulin Lispro 100 Units/ML 3 ML Vial SUBCUT SCH ×6 (08:54→21:24)
[2020-09-22] MEDS: Enoxaparin 40 MG/0.4 ML Syringe SUBCUT SCH (08:55)
--- NOTE | 2020-09-22 10:13 | PCM.PN ---
- General Info Date of Service: 09/22/20 Subjective Update: Today the patient is tremulous and tachycardic. Heart rate is up to 148/min. He is having intermittent nausea and vomiting. Also had fever this morning. Continues to cough and it is productive of brownish sputum. - Review of Systems General: Reports: Fever, Weakness, Fatigue HEENT: Reports: No Symptoms Pulmonary: Reports: Cough Cardiovascular: Reports: No Symptoms Gastrointestinal: Reports: Abdominal Pain Musculoskeletal: Reports: No Symptoms - Patient Data Vitals - Most Recent: Last Vital Signs Temp 38.1 C 09/22/20 08:00 Pulse 148 H 09/22/20 08:00 Resp 24 H 09/22/20 08:00 BP 144/80 H 09/22/20 08:00 Pulse Ox 93 L 09/22/20 08:00 Weight - Most Recent: 83.007 kg I&O - Last 24 Hours: Intake & Output 09/21/20 09/22/20 09/22/20 22:59 06:59 14:59 Intake Total 660 1880 Output Total 1450 275 Balance -790 1605 Lab Results Last 24 Hours: Laboratory Results - last 24 hr 09/21/20 09/21/20 09/21/20 Range/Units 15:10 15:23 15:23 WBC 15.2 H (5.0-10.0) 10^3/uL RBC 3.93 L (4.6-6.2) 10^6/uL Hgb 12.7 L D (14.0-18.0) g/dL Hct 35.1 L (40.0-54.0) % MCV 89.3 (80-100) fL MCH 32.3 (27.0-34.0) pg MCHC 36.2 H (33.0-35.0) g/dL Plt Count 114 L D (150-450) 10^3/uL Neut % (Auto) 84.7 H (42.2-75.2) % Lymph % (Auto) 6.4 L (20.5-50.1) % [facility] % (Auto) 8.6 H (2-8) % Eos % (Auto) 0.1 L (1.0-3.0) % Baso % (Auto) 0.2 (0.0-1.0) % Add Manual Diff Yes Neutrophils % (Manual) 29 L (42-75) % Band Neutrophils % 33 % Lymphocytes % (Manual) 9 L (20-50) % Monocytes % (Manual) 6 (2-8) % Metamyelocytes % 16 Myelocytes % 7 Nucleated RBCs /100WBC Sodium 119 L* D (136-145) mmol/L Potassium 3.9 (3.5-5.1) mmol/L Chloride 84 L D (98-107) mmol/L Carbon Dioxide 15 L D (21-32) mmol/L Anion Gap 23.9 H (7-13) mEq/L BUN 10 (7-18) mg/dL Creatinine 0.93 (0.70-1.30) mg/dL Est Cr Clr Drug Dosing 103.47 mL/min Estimated GFR (MDRD) > 60 BUN/Creatinine Ratio 10.8 (No establ ref range) Glucose 283 H (74-99) mg/dL POC Glucose (70-105) mg/dl Calcium 8.4 L (8.5-10.1) mg/dL Magnesium 1.3 L (1.8-2.4) mg/dL Total Bilirubin 1.4 H (0.2-1.0) mg/dL AST 88 H (15-37) U/L ALT 109 H (16-63) U/L Alkaline Phosphatase 94 (46-116) U/L Ammonia (11-32) umol/L Troponin I (0.000-0.056) ng/mL Total Protein 7.2 (6.4-8.2) g/dL Albumin 2.5 L (3.4-5.0) g/dL Globulin 4.7 Albumin/Globulin Ratio 0.53 Lipase (73-393) U/L Urine Color (YELLOW) Urine Appearance (CLEAR) Urine pH (5.0-9.0) Ur Specific [place] (1.005-1.030) Urine Protein (NEGATIVE) Urine Glucose (UA) (NEGATIVE) Urine Ketones (NEGATIVE) Urine Occult Blood (NEGATIVE) Urine Nitrite (NEGATIVE) Urine Bilirubin (NEGATIVE) Urine Urobilinogen (0.2-1.0) mg/dL Ur Leukocyte Esterase (NEGATIVE) Urine RBC /HPF Urine WBC (0-5/HPF) /HPF Ur Epithelial Cells (NOT SEEN) /HPF Amorphous Sediment (NOT SEEN) /HPF Urine Bacteria (0-FEW/HPF) /HPF Ur Random Creatinine (No establ ref range) mg/dL Ur Random Sodium (No establ.ref range) mmol/L Salicylates (2.8-20(Therapeutic)) mg/dL Urine Opiates Screen (NEGATIVE) Ur Oxycodone Screen (NEGATIVE) Urine Methadone Screen (NEGATIVE) Acetaminophen 0 L (10-30 (Therapeutic)) ug/mL Ur Barbiturates Screen (NEGATIVE) U Tricyclic Antidepress (NEGATIVE) Ur Phencyclidine Scrn (NEGATIVE) Ur Amphetamine Screen (NEGATIVE) U Methamphetamines Scrn (NEGATIVE) Urine MDMA Screen (NEGATIVE) U Benzodiazepines Scrn (NEGATIVE) Urine Cocaine Screen (NEGATIVE) U Marijuana (THC) Screen (NEGATIVE) Ethyl Alcohol 280 (0) mg/dL SARS-CoV-2 RNA (IRENA) Negative (NEGATIVE) 09/21/20 09/21/20 09/21/20 Range/Units 15:23 15:23 15:23 WBC (5.0-10.0) 10^3/uL RBC (4.6-6.2) 10^6/uL Hgb (14.0-18.0) g/dL Hct (40.0-54.0) % MCV (80-100) fL MCH (27.0-34.0) pg MCHC (33.0-35.0) g/dL Plt Count (150-450) 10^3/uL Neut % (Auto) (42.2-75.2) % Lymph % (Auto) (20.5-50.1) % [facility] [facility] % (Auto) (2-8) % Eos % (Auto) (1.0-3.0) % Baso % (Auto) (0.0-1.0) % Add Manual Diff Neutrophils % (Manual) (42-75) % Band Neutrophils % % Lymphocytes % (Manual) (20-50) % Monocytes % (Manual) (2-8) % Metamyelocytes % Myelocytes % Nucleated RBCs /100WBC Sodium (136-145) mmol/L Potassium (3.5-5.1) mmol/L Chloride (98-107) mmol/L Carbon Dioxide (21-32) mmol/L Anion Gap (7-13) mEq/L BUN (7-18) mg/dL Creatinine (0.70-1.30) mg/dL Est Cr Clr Drug Dosing mL/min Estimated GFR (MDRD) BUN/Creatinine Ratio (No establ ref range) Glucose (74-99) mg/dL POC Glucose (70-105) mg/dl Calcium (8.5-10.1) mg/dL Magnesium (1.8-2.4) mg/dL Total Bilirubin (0.2-1.0) mg/dL AST (15-37) U/L ALT (16-63) U/L Alkaline Phosphatase (46-116) U/L Ammonia < 10 L (11-32) umol/L Troponin I 0.035 (0.000-0.056) ng/mL Total Protein (6.4-8.2) g/dL Albumin (3.4-5.0) g/dL Globulin Albumin/Globulin Ratio Lipase (73-393) U/L Urine Color (YELLOW) Urine Appearance (CLEAR) Urine pH (5.0-9.0) Ur Specific [place] (1.005-1.030) Urine Protein (NEGATIVE) Urine Glucose (UA) (NEGATIVE) Urine Ketones (NEGATIVE) Urine Occult Blood (NEGATIVE) Urine Nitrite (NEGATIVE) Urine Bilirubin (NEGATIVE) Urine Urobilinogen (0.2-1.0) mg/dL Ur Leukocyte Esterase (NEGATIVE) Urine RBC /HPF Urine WBC (0-5/HPF) /HPF Ur Epithelial Cells (NOT SEEN) /HPF Amorphous Sediment (NOT SEEN) /HPF Urine Bacteria (0-FEW/HPF) /HPF Ur Random Creatinine (No establ ref range) mg/dL Ur Random Sodium (No establ.ref range) mmol/L Salicylates < 2.8 L (2.8-20(Therapeutic)) mg/dL Urine Opiates Screen (NEGATIVE) Ur Oxycodone Screen (NEGATIVE) Urine Methadone Screen (NEGATIVE) Acetaminophen (10-30 (Therapeutic)) ug/mL Ur Barbiturates Screen (NEGATIVE) U Tricyclic Antidepress (NEGATIVE) Ur Phencyclidine Scrn (NEGATIVE) Ur Amphetamine Screen (NEGATIVE) U Methamphetamines Scrn (NEGATIVE) Urine MDMA Screen (NEGATIVE) U Benzodiazepines Scrn (NEGATIVE) Urine Cocaine Screen (NEGATIVE) U Marijuana (THC) Screen (NEGATIVE) Ethyl Alcohol (0) mg/dL SARS-CoV-2 RNA (IRENA) (NEGATIVE) 09/21/20 09/21/20 09/21/20 Range/Units 16:23 16:23 18:44 WBC (5.0-10.0) 10^3/uL RBC (4.6-6.2) 10^6/uL Hgb (14.0-18.0) g/dL Hct (40.0-54.0) % MCV (80-100) fL MCH (27.0-34.0) pg MCHC (33.0-35.0) g/dL Plt Count (150-450) 10^3/uL Neut % (Auto) (42.2-75.2) % Lymph % (Auto) (20.5-50.1) % [facility] % (Auto) (2-8) % Eos % (Auto) (1.0-3.0) % Baso % (Auto) (0.0-1.0) % Add Manual Diff Neutrophils % (Manual) (42-75) % Band Neutrophils % % Lymphocytes % (Manual) (20-50) % Monocytes % (Manual) (2-8) % Metamyelocytes % Myelocytes % Nucleated RBCs /100WBC Sodium 126 L (136-145) mmol/L Potassium (3.5-5.1) mmol/L Chloride (98-107) mmol/L Carbon Dioxide (21-32) mmol/L Anion Gap (7-13) mEq/L BUN (7-18) mg/dL Creatinine (0.70-1.30) mg/dL Est Cr Clr Drug Dosing mL/min Estimated GFR (MDRD) BUN/Creatinine Ratio (No establ ref range) Glucose (74-99) mg/dL POC Glucose (70-105) mg/dl Calcium (8.5-10.1) mg/dL Magnesium (1.8-2.4) mg/dL Total Bilirubin (0.2-1.0) mg/dL AST (15-37) U/L ALT (16-63) U/L Alkaline Phosphatase (46-116) U/L Ammonia (11-32) umol/L Troponin I (0.000-0.056) ng/mL Total Protein (6.4-8.2) g/dL Albumin (3.4-5.0) g/dL Globulin Albumin/Globulin Ratio Lipase (73-393) U/L Urine Color Yellow (YELLOW) Urine Appearance Clear (CLEAR) Urine pH 5.5 (5.0-9.0) Ur Specific [place] 1.010 (1.005-1.030) Urine Protein Trace H (NEGATIVE) Urine Glucose (UA) 500 H (NEGATIVE) Urine Ketones 40 H (NEGATIVE) Urine Occult Blood Trace-intact H (NEGATIVE) Urine Nitrite Negative (NEGATIVE) Urine Bilirubin Negative (NEGATIVE) Urine Urobilinogen 0.2 (0.2-1.0) mg/dL Ur Leukocyte Esterase Negative (NEGATIVE) Urine RBC Not seen /HPF Urine WBC 0-5 (0-5/HPF) /HPF Ur Epithelial Cells Rare (NOT SEEN) /HPF Amorphous Sediment Occasional (NOT SEEN) /HPF Urine Bacteria Not seen (0-FEW/HPF) /HPF Ur Random Creatinine (No establ ref range) mg/dL Ur Random Sodium (No establ.ref range) mmol/L Salicylates (2.8-20(Therapeutic)) mg/dL Urine Opiates Screen Negative (NEGATIVE) Ur Oxycodone Screen Negative (NEGATIVE) Urine Methadone Screen Negative (NEGATIVE) Acetaminophen (10-30 (Therapeutic)) ug/mL Ur Barbiturates Screen Negative (NEGATIVE) U Tricyclic Antidepress Negative (NEGATIVE) Ur Phencyclidine Scrn Negative (NEGATIVE) Ur Amphetamine Screen Negative (NEGATIVE) U Methamphetamines Scrn Negative (NEGATIVE) Urine MDMA Screen Negative (NEGATIVE) U Benzodiazepines Scrn Negative (NEGATIVE) Urine Cocaine Screen Negative (NEGATIVE) U Marijuana (THC) Screen Negative (NEGATIVE) Ethyl Alcohol (0) mg/dL SARS-CoV-2 RNA (IRENA) (NEGATIVE) 09/21/20 09/21/20 09/21/20 Range/Units 18:44 18:56 20:55 WBC (5.0-10.0) 10^3/uL RBC (4.6-6.2) 10^6/uL Hgb (14.0-18.0) g/dL Hct (40.0-54.0) % MCV (80-100) fL MCH (27.0-34.0) pg MCHC (33.0-35.0) g/dL Plt Count (150-450) 10^3/uL Neut % (Auto) (42.2-75.2) % Lymph % (Auto) (20.5-50.1) % [facility] [facility] % (Auto) (2-8) % Eos % (Auto) (1.0-3.0) % Baso % (Auto) (0.0-1.0) % Add Manual Diff Neutrophils % (Manual) (42-75) % Band Neutrophils % % Lymphocytes % (Manual) (20-50) % Monocytes % (Manual) (2-8) % Metamyelocytes % Myelocytes % Nucleated RBCs /100WBC Sodium (136-145) mmol/L Potassium (3.5-5.1) mmol/L Chloride (98-107) mmol/L Carbon Dioxide (21-32) mmol/L Anion Gap (7-13) mEq/L BUN (7-18) mg/dL Creatinine (0.70-1.30) mg/dL Est Cr Clr Drug Dosing mL/min Estimated GFR (MDRD) BUN/Creatinine Ratio (No establ ref range) Glucose (74-99) mg/dL POC Glucose 408 H* (70-105) mg/dl Calcium (8.5-10.1) mg/dL Magnesium (1.8-2.4) mg/dL Total Bilirubin (0.2-1.0) mg/dL AST (15-37) U/L ALT (16-63) U/L Alkaline Phosphatase (46-116) U/L Ammonia (11-32) umol/L Troponin I 0.026 (0.000-0.056) ng/mL Total Protein (6.4-8.2) g/dL Albumin (3.4-5.0) g/dL Globulin Albumin/Globulin Ratio Lipase 326 (73-393) U/L Urine Color (YELLOW) Urine Appearance (CLEAR) Urine pH (5.0-9.0) Ur Specific [place] (1.005-1.030) Urine Protein (NEGATIVE) Urine Glucose (UA) (NEGATIVE) Urine Ketones (NEGATIVE) Urine Occult Blood (NEGATIVE) Urine Nitrite (NEGATIVE) Urine Bilirubin (NEGATIVE) Urine Urobilinogen (0.2-1.0) mg/dL Ur Leukocyte Esterase (NEGATIVE) Urine RBC /HPF Urine WBC (0-5/HPF) /HPF Ur Epithelial Cells (NOT SEEN) /HPF Amorphous Sediment (NOT SEEN) /HPF Urine Bacteria (0-FEW/HPF) /HPF Ur Random Creatinine < 13.00 (No establ ref range) mg/dL Ur Random Sodium 11 (No establ.ref range) mmol/L Salicylates (2.8-20(Therapeutic)) mg/dL Urine Opiates Screen (NEGATIVE) Ur Oxycodone Screen (NEGATIVE) Urine Methadone Screen (NEGATIVE) Acetaminophen (10-30 (Therapeutic)) ug/mL Ur Barbiturates Screen (NEGATIVE) U Tricyclic Antidepress (NEGATIVE) Ur Phencyclidine Scrn (NEGATIVE) Ur Amphetamine Screen (NEGATIVE) U Methamphetamines Scrn (NEGATIVE) Urine MDMA Screen (NEGATIVE) U Benzodiazepines Scrn (NEGATIVE) Urine Cocaine Screen (NEGATIVE) U Marijuana (THC) Screen (NEGATIVE) Ethyl Alcohol (0) mg/dL SARS-CoV-2 RNA (IRENA) (NEGATIVE) 09/22/20 09/22/20 09/22/20 Range/Units 00:35 00:35 05:55 WBC 6.2 (5.0-10.0) 10^3/uL RBC 3.88 L (4.6-6.2) 10^6/uL Hgb 12.5 L (14.0-18.0) g/dL Hct 34.4 L (40.0-54.0) % MCV 88.7 (80-100) fL MCH 32.2 (27.0-34.0) pg MCHC 36.3 H (33.0-35.0) g/dL Plt Count 99 L (150-450) 10^3/uL Neut % (Auto) 89.5 H (42.2-75.2) % Lymph % (Auto) 5.8 L (20.5-50.1) % [facility] % (Auto) 4.3 (2-8) % Eos % (Auto) 0.2 L (1.0-3.0) % Baso % (Auto) 0.2 (0.0-1.0) % Add Manual Diff Yes Neutrophils % (Manual) 34 L (42-75) % Band Neutrophils % 46 % Lymphocytes % (Manual) 12 L (20-50) % Monocytes % (Manual) 3 (2-8) % Metamyelocytes % 3 Myelocytes % 2 Nucleated RBCs 1 /100WBC Sodium 128 L (136-145) mmol/L Potassium (3.5-5.1) mmol/L Chloride (98-107) mmol/L Carbon Dioxide (21-32) mmol/L Anion Gap (7-13) mEq/L BUN (7-18) mg/dL Creatinine (0.70-1.30) mg/dL Est Cr Clr Drug Dosing mL/min Estimated GFR (MDRD) BUN/Creatinine Ratio (No establ ref range) Glucose (74-99) mg/dL POC Glucose (70-105) mg/dl Calcium (8.5-10.1) mg/dL Magnesium (1.8-2.4) mg/dL Total Bilirubin (0.2-1.0) mg/dL AST (15-37) U/L ALT (16-63) U/L Alkaline Phosphatase (46-116) U/L Ammonia (11-32) umol/L Troponin I 0.026 (0.000-0.056) ng/mL Total Protein (6.4-8.2) g/dL Albumin (3.4-5.0) g/dL Globulin Albumin/Globulin Ratio Lipase (73-393) U/L Urine Color (YELLOW) Urine Appearance (CLEAR) Urine pH (5.0-9.0) Ur Specific [place] (1.005-1.030) Urine Protein (NEGATIVE) Urine Glucose (UA) (NEGATIVE) Urine Ketones (NEGATIVE) Urine Occult Blood (NEGATIVE) Urine Nitrite (NEGATIVE) Urine Bilirubin (NEGATIVE) Urine Urobilinogen (0.2-1.0) mg/dL Ur Leukocyte Esterase (NEGATIVE) Urine RBC /HPF Urine WBC (0-5/HPF) /HPF Ur Epithelial Cells (NOT SEEN) /HPF Amorphous Sediment (NOT SEEN) /HPF Urine Bacteria (0-FEW/HPF) /HPF Ur Random Creatinine (No establ ref range) mg/dL Ur Random Sodium (No establ.ref range) mmol/L Salicylates (2.8-20(Therapeutic)) mg/dL Urine Opiates Screen (NEGATIVE) Ur Oxycodone Screen (NEGATIVE) Urine Methadone Screen (NEGATIVE) Acetaminophen (10-30 (Therapeutic)) ug/mL Ur Barbiturates Screen (NEGATIVE) U Tricyclic Antidepress (NEGATIVE) Ur Phencyclidine Scrn (NEGATIVE) Ur Amphetamine Screen (NEGATIVE) U Methamphetamines Scrn (NEGATIVE) Urine MDMA Screen (NEGATIVE) U Benzodiazepines Scrn (NEGATIVE) Urine Cocaine Screen (NEGATIVE) U Marijuana (THC) Screen (NEGATIVE) Ethyl Alcohol (0) mg/dL SARS-CoV-2 RNA (IRENA) (NEGATIVE) 09/22/20 09/22/20 09/22/20 Range/Units 05:55 05:55 08:01 WBC (5.0-10.0) 10^3/uL RBC (4.6-6.2) 10^6/uL Hgb (14.0-18.0) g/dL Hct (40.0-54.0) % MCV (80-100) fL MCH (27.0-34.0) pg MCHC (33.0-35.0) g/dL Plt Count (150-450) 10^3/uL Neut % (Auto) (42.2-75.2) % Lymph % (Auto) (20.5-50.1) % [facility] % (Auto) (2-8) % Eos % (Auto) (1.0-3.0) % Baso % (Auto) (0.0-1.0) % Add Manual Diff Neutrophils % (Manual) (42-75) % Band Neutrophils % % Lymphocytes % (Manual) (20-50) % Monocytes % (Manual) (2-8) % Metamyelocytes % Myelocytes % Nucleated RBCs /100WBC Sodium 128 L (136-145) mmol/L Potassium 3.9 (3.5-5.1) mmol/L Chloride 93 L (98-107) mmol/L Carbon Dioxide 25 (21-32) mmol/L Anion Gap 13.9 H (7-13) mEq/L BUN 11 (7-18) mg/dL Creatinine 0.93 (0.70-1.30) mg/dL Est Cr Clr Drug Dosing 103.47 mL/min Estimated GFR (MDRD) > 60 BUN/Creatinine Ratio 11.8 (No establ ref range) Glucose 244 H (74-99) mg/dL POC Glucose 252 H (70-105) mg/dl Calcium 8.3 L (8.5-10.1) mg/dL Magnesium 1.2 L (1.8-2.4) mg/dL Total Bilirubin 1.9 H (0.2-1.0) mg/dL AST 179 H (15-37) U/L ALT 115 H (16-63) U/L Alkaline Phosphatase 120 H (46-116) U/L Ammonia (11-32) umol/L Troponin I (0.000-0.056) ng/mL Total Protein 6.6 (6.4-8.2) g/dL Albumin 2.1 L (3.4-5.0) g/dL Globulin 4.5 Albumin/Globulin Ratio 0.47 Lipase (73-393) U/L Urine Color (YELLOW) Urine Appearance (CLEAR) Urine pH (5.0-9.0) Ur Specific [place] (1.005-1.030) Urine Protein (NEGATIVE) Urine Glucose (UA) (NEGATIVE) Urine Ketones (NEGATIVE) Urine Occult Blood (NEGATIVE) Urine Nitrite (NEGATIVE) Urine Bilirubin (NEGATIVE) Urine Urobilinogen (0.2-1.0) mg/dL Ur Leukocyte Esterase (NEGATIVE) Urine RBC /HPF Urine WBC (0-5/HPF) /HPF Ur Epithelial Cells (NOT SEEN) /HPF Amorphous Sediment (NOT SEEN) /HPF Urine Bacteria (0-FEW/HPF) /HPF Ur Random Creatinine (No establ ref range) mg/dL Ur Random Sodium (No establ.ref range) mmol/L Salicylates (2.8-20(Therapeutic)) mg/dL Urine Opiates Screen (NEGATIVE) Ur Oxycodone Screen (NEGATIVE) Urine Methadone Screen (NEGATIVE) Acetaminophen (10-30 (Therapeutic)) ug/mL Ur Barbiturates Screen (NEGATIVE) U Tricyclic Antidepress (NEGATIVE) Ur Phencyclidine Scrn (NEGATIVE) Ur Amphetamine Screen (NEGATIVE) U Methamphetamines Scrn (NEGATIVE) Urine MDMA Screen (NEGATIVE) U Benzodiazepines Scrn (NEGATIVE) Urine Cocaine Screen (NEGATIVE) U Marijuana (THC) Screen (NEGATIVE) Ethyl Alcohol (0) mg/dL SARS-CoV-2 RNA (IRENA) (NEGATIVE) Bashir Results Last 24 Hours: Microbiology 09/21/20 19:32 Gram Stain - Final Sputum - Expectorated Med Orders - Current: Current Medications Acetaminophen (Tylenol) 650 mg PO Q4H PRN PRN Reason: Pain (Mild 1-3)/fever Last Admin: 09/22/20 07:43 Dose: 650 mg Documented by: Albuterol (Proventil Neb Soln) 2.5 mg NEB Q2H PRN PRN Reason: shortness of breath/wheezing Dextrose/Water (Dextrose 50% In Water) 50 ml IV ASDIRECTED PRN PRN Reason: Hypoglycemia Enoxaparin Sodium (Lovenox) 40 mg SUBCUT DAILY [facility] Last Admin: 09/22/20 08:55 Dose: 40 mg Documented by: Glucagon (Glucagen) 1 mg IM ASDIRECTED PRN PRN Reason: Hypoglycemia Guaifenesin/Phenylephrine HCl (Robitussin Dm) 5 ml PO Q4H PRN PRN Reason: Cough Last Admin: 09/22/20 09:00 Dose: 5 ml Documented by: Sodium Chloride (Normal Saline) 1,000 mls @ 150 mls/hr IV ASDIRECTED [facility] Last Admin: 09/22/20 02:16 Dose: 150 mls/hr Documented by: Piperacillin Sod/Tazobactam (Sod 3.375 gm/ Sodium Chloride) 100 mls @ 200 mls/hr IV Q8H [facility] Last Admin: 09/22/20 02:14 Dose: 200 mls/hr Documented by: Azithromycin 500 mg/ Sodium (Chloride) 250 mls @ 250 mls/hr IV Q24H [facility] Insulin Glargine (Lantus) 40 unit SUBCUT BEDTIME [facility] Insulin Human Lispro (Humalog) 0 unit SUBCUT QID [facility]; Protocol Last Admin: 09/22/20 08:54 Dose: 6 units Documented by: Insulin Human Lispro (Humalog) 12 unit SUBCUT TIDMEALS [facility] Lorazepam (Ativan) 0 mg PO Q2H PRN; Protocol PRN Reason: alcohol use Last Admin: 09/22/20 02:39 Dose: 2 mg Documented by: Lorazepam (Ativan) 0 mg IVPUSH Q1H PRN; Protocol PRN Reason: alcohol withdrawal Last Admin: 09/22/20 08:58 Dose: 2 mg Documented by: Morphine Sulfate (Morphine) 2 mg IVPUSH Q2H PRN PRN Reason: Pain (severe 7-10) Last Admin: 09/22/20 03:30 Dose: 2 mg Documented by: Ondansetron HCl (Zofran) 4 mg IVPUSH Q6H PRN PRN Reason: Nausea/Vomiting Last Admin: 09/22/20 07:42 Dose: 4 mg Documented by: Discontinued Medications Multivitamins/Minerals 10 ml/Folic Acid 1 mg/ Thiamine HCl 100 mg/ Lactated Ringer's 1,011.2 mls @ 999 mls/hr IV ONETIME ONE Stop: 09/21/20 16:06 Last Admin: 09/21/20 15:17 Dose: 999 mls/hr Documented by: Lactated Ringer's (Ringers, Lactated) 1,000 mls @ 999 mls/hr IV .BOLUS ONE Stop: 09/21/20 16:53 Last Admin: 09/21/20 15:55 Dose: 999 mls/hr Documented by: Magnesium Sulfate/Dextrose (Magnesium Sulfate In D5w 100 Premix) 1 gm in 100 mls @ 100 mls/hr IV ONETIME ONE Stop: 09/21/20 17:08 Last Admin: 09/21/20 16:14 Dose: 100 mls/hr Documented by: Sodium Chloride (Normal Saline) 1,000 mls @ 200 mls/hr IV .BOLUS ONE Stop: 09/21/20 21:37 Last Admin: 09/21/20 17:07 Dose: 200 mls/hr Documented by: Piperacillin Sod/Tazobactam (Sod 3.375 gm/ Sodium Chloride) 100 mls @ 200 mls/hr IV ONETIME ONE Stop: 09/21/20 18:16 Last Admin: 09/21/20 18:37 Dose: Not Given Documented by: Azithromycin 500 mg/ Sodium (Chloride) 250 mls @ 250 mls/hr IV ONETIME ONE Stop: 09/21/20 18:46 Last Admin: 09/21/20 17:53 Dose: 250 mls/hr Documented by: Insulin Glargine (Lantus) 30 unit SUBCUT BEDTIME [facility] Last Admin: 09/21/20 21:14 Dose: 30 units Documented by: Insulin Glargine (Lantus) 30 unit SUBCUT ONETIME ONE Stop: 09/21/20 21:16 Last Admin: 09/21/20 21:39 Dose: Not Given Documented by: Iopamidol (Isovue-300 (61%)) 100 ml IVPUSH ONETIME ONE Stop: 09/21/20 16:30 Last Admin: 09/21/20 16:32 Dose: 100 ml Documented by: - Exam General: Alert, Oriented, Cooperative Neck: Supple Lungs: Clear to Auscultation, Normal Respiratory Effort Cardiovascular: Regular Rate, Regular Rhythm GI/Abdominal Exam: Normal Bowel Sounds, Soft, Non-Tender, No Organomegaly, No Distention, No Abnormal Bruit, No Mass, Pelvis Stable Extremities: Normal Inspection, Normal Range of Motion, Non-Tender, No Pedal Edema, Normal Capillary Refill Skin: Warm, Dry, Intact Sepsis Event Note - Evaluation Sepsis Screening Result: Sepsis Risk - Focused Exam Vital Signs: Vital Signs Temp Pulse Resp BP Pulse Ox 09/22/20 08:00 38.1 C 148 H 24 H 144/80 H 93 L - Problem List Review Problem List Initiated/Reviewed/Updated: Yes - My Orders Last 24 Hours: My Active Orders 09/21/20 Dinner Consistent Carbohydrate Diet [DIET] 09/21/20 18:15 Patient Status [ADT] Routine Blood Glucose Check, Bedside [RC] QIDACANDBED Oxygen Therapy [RC] PRN Up ad Karla [RC] ASDIRECTED VTE/DVT Education [RC] PER UNIT ROUTINE Vital Signs [RC] 00,04,08,12,,20 Acetaminophen [TylenoL] 650 mg PO Q4H PRN Albuterol [Proventil Neb Soln] 2.5 mg NEB Q2H PRN Morphine 2 mg IVPUSH Q2H PRN Ondansetron [Zofran] 4 mg IVPUSH Q6H PRN Sodium Chloride 0.9% [Normal Saline] 1,000 ml IV ASDIRECTED Glucose Management Sub Q Reflex [OM.PC] Click to Edit Resuscitation Status Routine 09/21/20 18:16 Intake and Output [RC] QSHIFT 09/21/20 18:17 Cardiac Monitoring [RC] Diabetes Education [RC] Click to Edit 09/21/20 18:18 RT Aerosol Therapy [RC] ASDIRECTED 09/21/20 18:23 LORazepam [Ativan] See Protocol PO Q2H PRN 09/21/20 18:30 Piperacillin/Tazobactam [Zosyn] 3.375 gm Sodium Chloride 0.9% [Normal Saline] 100 ml IV Q8H 09/21/20 18:38 LORazepam [Ativan] See Protocol IVPUSH Q1H PRN 09/21/20 19:24 Dextromethorphan/guaiFENesin [Robitussin DM] 5 ml PO Q4H PRN 09/21/20 19:32 CULTURE SPUTUM + SMEAR [RM] Stat 09/21/20 21:03 Dextrose 50% in Water 50 ml IV ASDIRECTED PRN Glucagon,Human Recombinant [GlucaGen] 1 mg IM ASDIRECTED PRN 12/21/20 08:32 Seizure Precautions [OM.PC] Routine 09/22/20 09:00 Enoxaparin [Lovenox] 40 mg SUBCUT DAILY 09/22/20 12:00 Insulin Lispro [HumaLOG] 12 unit SUBCUT TIDMEALS 09/22/20 18:30 Azithromycin [Zithromax] 500 mg Sodium Chloride 0.9% [Normal Saline (AdvBag)] 250 ml IV Q24H 09/22/20 21:00 Insulin Glarg,Human.Rec.Analog [LantUS] 40 unit SUBCUT BEDTIME - Plan Plan:: Assessment/plan: #. Pneumonia Patient is an alcoholic and has been having nausea and vomiting. This may be aspiration pneumonia Could also be community-acquired pneumonia #. Hyponatremia Likely due to SIADH Serum sodium is improving #. Alcohol withdrawal Patient is a chronic alcoholic Feels tremulous at this point #. Ketoacidosis This is probably due to alcohol induced ketoacidosis Anion gap has improved. Blood sugar is improving #. Alcohol induced hepatitis Liver enzymes elevated #. Hypomagnesemia Magnesium was replaced #. Diabetes mellitus type 2 Suboptimal control #. Cytopenia Patient is anemic and thrombocytopenic Likely due to alcohol use Plan: Patient seem to have gone into full-blown withdrawal He is markedly tachycardic heart rate of 148/min Continue intravenous fluid Obtain repeat basic metabolic panel Obtain repeat complete blood count Obtain repeat magnesium level I will monitor the patient closely. Should he show any signs of deterioration he will be transferred to higher level of care. Patient's medical chart was reviewed. Discussed with emergency room physician employee relations assistant.
[2020-09-22] MEDS: Lactated Ringers 1,000 ML IV SCH (16:18)
[2020-09-22] MEDS: Citalopram 20 MG Tab PO SCH (16:18)
[2020-09-22] MEDS: Azithromycin 500 MG in Sodium Chloride 0.9% 250 ML IV SCH (18:44)
[2020-09-22] MEDS ORDERED: Insulin Glarg,Human.Rec.Analog 100 Unit/ML SUBCUT SCH (21:00)
[2020-09-22] MEDS: oxyCODONE 5 MG Tab PO PRN (21:17)
[2020-09-22] MEDS: traZODone 50 MG Tab PO SCH (21:19)
[2020-09-22] MEDS: Insulin Glarg,Human.Rec.Analog 100 Unit/ML SUBCUT SCH (21:26)
[2020-09-23] MEDS: Acetaminophen 325 MG Tab PO PRN ×3 (00:25→17:29)
[2020-09-23] MEDS: Piperacillin/Tazobactam 3.375 GM in Sodium Chloride 0.9% 100 ML IV SCH ×3 (02:34→17:29)
[2020-09-23] MEDS: Lactated Ringers 1,000 ML IV SCH ×2 (04:24→14:28)
[2020-09-23 06:15] LABS: CHLORIDE,CL 96 mmol/L (98-107); SODIUM,NA 132 mmol/L (136-145)
[2020-09-23] MEDS: Insulin Lispro 100 Units/ML 3 ML Vial SUBCUT SCH ×6 (08:04→16:56)
[2020-09-23] MEDS: Enoxaparin 40 MG/0.4 ML Syringe SUBCUT SCH (08:05)
[2020-09-23] MEDS: Citalopram 20 MG Tab PO SCH (08:05)
[2020-09-23] MEDS ORDERED: Potassium Chloride 20 MEQ in Premix Bag 1 BAG IV ONE (09:00)
[2020-09-23] MEDS ORDERED: Potassium Chloride 10 MEQ Tab.ER PO ONE (09:00)
--- NOTE | 2020-09-23 09:50 | PCM.PN ---
- General Info Date of Service: 09/23/20 - Review of Systems General: Reports: Weakness, Malaise Pulmonary: Reports: Shortness of Breath, Cough Cardiovascular: Reports: Chest Pain, Dyspnea on Exertion Gastrointestinal: Reports: Abdominal Pain - Patient Data Vitals - Most Recent: Last Vital Signs Temp 36.8 C 09/23/20 08:00 Pulse 102 H 09/23/20 08:00 Resp 16 09/23/20 08:00 BP 147/97 H 09/23/20 08:00 Pulse Ox 98 09/23/20 08:00 Weight - Most Recent: 83.007 kg I&O - Last 24 Hours: Intake & Output 09/22/20 09/23/20 09/23/20 22:59 06:59 14:59 Output Total 575 Balance -575 Lab Results Last 24 Hours: Laboratory Results - last 24 hr 09/22/20 09/22/20 09/22/20 Range/Units 11:46 16:42 21:04 WBC (5.0-10.0) 10^3/uL RBC (4.6-6.2) 10^6/uL Hgb (14.0-18.0) g/dL Hct (40.0-54.0) % MCV (80-100) fL MCH (27.0-34.0) pg MCHC (33.0-35.0) g/dL Plt Count (150-450) 10^3/uL Sodium (136-145) mmol/L Potassium (3.5-5.1) mmol/L Chloride (98-107) mmol/L Carbon Dioxide (21-32) mmol/L Anion Gap (7-13) mEq/L BUN (7-18) mg/dL Creatinine (0.70-1.30) mg/dL Est Cr Clr Drug Dosing mL/min Estimated GFR (MDRD) BUN/Creatinine Ratio (No establ ref range) Glucose (74-99) mg/dL POC Glucose 215 H 179 H 184 H (70-105) mg/dl Calcium (8.5-10.1) mg/dL Total Bilirubin (0.2-1.0) mg/dL AST (15-37) U/L ALT (16-63) U/L Alkaline Phosphatase (46-116) U/L Total Protein (6.4-8.2) g/dL Albumin (3.4-5.0) g/dL Globulin Albumin/Globulin Ratio 09/23/20 09/23/20 09/23/20 Range/Units 05:18 05:18 07:40 WBC 5.4 (5.0-10.0) 10^3/uL RBC 3.54 L (4.6-6.2) 10^6/uL Hgb 11.3 L (14.0-18.0) g/dL Hct 32.2 L (40.0-54.0) % MCV 91.0 (80-100) fL MCH 31.9 (27.0-34.0) pg MCHC 35.1 H (33.0-35.0) g/dL Plt Count 97 L (150-450) 10^3/uL Sodium 132 L (136-145) mmol/L Potassium 3.0 L (3.5-5.1) mmol/L Chloride 96 L (98-107) mmol/L Carbon Dioxide 28 (21-32) mmol/L Anion Gap 11.0 (7-13) mEq/L BUN 12 (7-18) mg/dL Creatinine 0.74 (0.70-1.30) mg/dL Est Cr Clr Drug Dosing 130.04 mL/min Estimated GFR (MDRD) > 60 BUN/Creatinine Ratio 16.2 (No establ ref range) Glucose 188 H (74-99) mg/dL POC Glucose 207 H (70-105) mg/dl Calcium 7.9 L (8.5-10.1) mg/dL Total Bilirubin 1.6 H (0.2-1.0) mg/dL AST 168 H (15-37) U/L ALT 107 H (16-63) U/L Alkaline Phosphatase 112 (46-116) U/L Total Protein 5.8 L (6.4-8.2) g/dL Albumin 1.7 L (3.4-5.0) g/dL Globulin 4.1 Albumin/Globulin Ratio 0.41 Bashir Results Last 24 Hours: Microbiology 09/21/20 19:32 Gram Stain - Final Sputum - Expectorated Sputum Culture - Preliminary YEAST 09/21/20 17:49 Aerobic Blood Culture - Preliminary Blood NO GROWTH AFTER 1 DAY Anaerobic Blood Culture - Preliminary NO GROWTH AFTER 1 DAY 09/21/20 15:23 Aerobic Blood Culture - Preliminary Blood NO GROWTH AFTER 1 DAY Anaerobic Blood Culture - Preliminary NO GROWTH AFTER 1 DAY Med Orders - Current: Current Medications Acetaminophen (Tylenol) 650 mg PO Q4H PRN PRN Reason: Pain (Mild 1-3)/fever Last Admin: 09/23/20 00:25 Dose: 650 mg Documented by: Albuterol (Proventil Neb Soln) 2.5 mg NEB Q2H PRN PRN Reason: shortness of breath/wheezing Atenolol (Tenormin) 25 mg PO DAILY [facility] Citalopram Hydrobromide (Celexa) 20 mg PO DAILY [facility] Last Admin: 09/23/20 08:05 Dose: 20 mg Documented by: Dextrose/Water (Dextrose 50% In Water) 50 ml IV ASDIRECTED PRN PRN Reason: Hypoglycemia Enoxaparin Sodium (Lovenox) 40 mg SUBCUT DAILY [facility] Last Admin: 09/23/20 08:05 Dose: 40 mg Documented by: Glucagon (Glucagen) 1 mg IM ASDIRECTED PRN PRN Reason: Hypoglycemia Guaifenesin/Phenylephrine HCl (Robitussin Dm) 5 ml PO Q4H PRN PRN Reason: Cough Last Admin: 09/22/20 21:21 Dose: 5 ml Documented by: Piperacillin Sod/Tazobactam (Sod 3.375 gm/ Sodium Chloride) 100 mls @ 200 mls/hr IV Q8H [facility] Last Admin: 09/23/20 02:34 Dose: 200 mls/hr Documented by: Azithromycin 500 mg/ Sodium (Chloride) 250 mls @ 250 mls/hr IV Q24H [facility] Last Admin: 09/22/20 18:44 Dose: 250 mls/hr Documented by: Lactated Ringer's (Ringers, Lactated) 1,000 mls @ 100 mls/hr IV ASDIRECTED [facility] Last Admin: 09/23/20 04:24 Dose: 100 mls/hr Documented by: Potassium Chloride 20 meq/ (Premix) 100 mls @ 50 mls/hr IV ONETIME ONE Stop: 09/23/20 10:59 Insulin Glargine (Lantus) 40 unit SUBCUT BEDTIME [facility] Last Admin: 09/22/20 21:26 Dose: 40 units Documented by: Insulin Human Lispro (Humalog) 0 unit SUBCUT QID [facility]; Protocol Last Admin: 09/23/20 08:04 Dose: 4 units Documented by: Insulin Human Lispro (Humalog) 12 unit SUBCUT TIDMEALS [facility] Last Admin: 09/23/20 08:05 Dose: 12 units Documented by: Lorazepam (Ativan) 0 mg PO Q2H PRN; Protocol PRN Reason: alcohol use Last Admin: 09/22/20 02:39 Dose: 2 mg Documented by: Lorazepam (Ativan) 0 mg IVPUSH Q1H PRN; Protocol PRN Reason: alcohol withdrawal Last Admin: 09/22/20 11:53 Dose: 2 mg Documented by: Morphine Sulfate (Morphine) 2 mg IVPUSH Q2H PRN PRN Reason: Pain (severe 7-10) Last Admin: 09/22/20 10:55 Dose: 2 mg Documented by: Ondansetron HCl (Zofran) 4 mg IVPUSH Q6H PRN PRN Reason: Nausea/Vomiting Last Admin: 09/22/20 13:29 Dose: 4 mg Documented by: Oxycodone HCl (Oxycodone) 5 mg PO BID PRN PRN Reason: Pain (moderate 4-6) Last Admin: 09/22/20 21:17 Dose: 5 mg Documented by: Trazodone HCl (Trazodone) 150 mg PO BEDTIME [facility] Last Admin: 09/22/20 21:19 Dose: 150 mg Documented by: Discontinued Medications Multivitamins/Minerals 10 ml/Folic Acid 1 mg/ Thiamine HCl 100 mg/ Lactated Ringer's 1,011.2 mls @ 999 mls/hr IV ONETIME ONE Stop: 09/21/20 16:06 Last Admin: 09/21/20 15:17 Dose: 999 mls/hr Documented by: Lactated Ringer's (Ringers, Lactated) 1,000 mls @ 999 mls/hr IV .BOLUS ONE Stop: 09/21/20 16:53 Last Admin: 09/21/20 15:55 Dose: 999 mls/hr Documented by: Magnesium Sulfate/Dextrose (Magnesium Sulfate In D5w 100 Premix) 1 gm in 100 mls @ 100 mls/hr IV ONETIME ONE Stop: 09/21/20 17:08 Last Admin: 09/21/20 16:14 Dose: 100 mls/hr Documented by: Sodium Chloride (Normal Saline) 1,000 mls @ 200 mls/hr IV .BOLUS ONE Stop: 09/21/20 21:37 Last Admin: 09/21/20 17:07 Dose: 200 mls/hr Documented by: Piperacillin Sod/Tazobactam (Sod 3.375 gm/ Sodium Chloride) 100 mls @ 200 mls/hr IV ONETIME ONE Stop: 09/21/20 18:16 Last Admin: 09/21/20 18:37 Dose: Not Given Documented by: Azithromycin 500 mg/ Sodium (Chloride) 250 mls @ 250 mls/hr IV ONETIME ONE Stop: 09/21/20 18:46 Last Admin: 09/21/20 17:53 Dose: 250 mls/hr Documented by: Sodium Chloride (Normal Saline) 1,000 mls @ 150 mls/hr IV ASDIRECTED [facility] Last Admin: 09/22/20 10:49 Dose: 150 mls/hr Documented by: Insulin Glargine (Lantus) 30 unit SUBCUT BEDTIME [facility] Last Admin: 09/21/20 21:14 Dose: 30 units Documented by: Insulin Glargine (Lantus) 30 unit SUBCUT ONETIME ONE Stop: 09/21/20 21:16 Last Admin: 09/21/20 21:39 Dose: Not Given Documented by: Iopamidol (Isovue-300 (61%)) 100 ml IVPUSH ONETIME ONE Stop: 09/21/20 16:30 Last Admin: 09/21/20 16:32 Dose: 100 ml Documented by: Potassium Chloride (Klor-Con 10) 20 meq PO ONETIME ONE Stop: 09/23/20 09:01 - Exam Quality Assessment: Supplemental Oxygen General: Alert, Oriented, Cooperative Neck: Supple Lungs: Decreased Breath Sounds, Other (Tachypnea) GI/Abdominal Exam: Normal Bowel Sounds Extremities: Normal Inspection Sepsis Event Note - Evaluation Sepsis Screening Result: No Definite Risk - Focused Exam Vital Signs: Vital Signs Temp Pulse Resp BP BP Pulse Ox 09/23/20 08:00 36.8 C 102 H 16 147/97 H 98 09/23/20 04:00 36.7 C 96 28 H 123/78 100 09/23/20 01:22 36.2 C 09/23/20 00:00 37.8 C 127 H 28 H 137/87 93 L - Problem List Review Problem List Initiated/Reviewed/Updated: Yes - My Orders Last 24 Hours: My Active Orders 09/22/20 09:00 Enoxaparin [Lovenox] 40 mg SUBCUT DAILY 09/22/20 12:00 Insulin Lispro [HumaLOG] 12 unit SUBCUT TIDMEALS 09/22/20 14:31 oxyCODONE 5 mg PO BID PRN 09/22/20 15:00 Citalopram [Celexa] 20 mg PO DAILY 09/22/20 16:00 Lactated Ringers [Ringers, Lactated] 1,000 ml IV ASDIRECTED 09/22/20 18:30 Azithromycin [Zithromax] 500 mg Sodium Chloride 0.9% [Normal Saline (AdvBag)] 250 ml IV Q24H 09/22/20 21:00 Insulin Glarg,Human.Rec.Analog [LantUS] 40 unit SUBCUT BEDTIME traZODone 150 mg PO BEDTIME 09/23/20 09:00 Potassium Chloride [KCL 20 MEQ in Water 100 ML] 20 meq Premix Bag 1 bag IV ONETIME 09/23/20 09:45 atenoloL [Tenormin] 25 mg PO DAILY 09/24/20 05:11 BASIC METABOLIC PANEL,BMP [CHEM] AM CBC W/O DIFF,HEMOGRAM [HEME] AM - Plan Plan:: Assessment/plan: #. Pneumonia Patient is an alcoholic and was having nausea and vomiting. Likely has aspiration pneumonia Could also be community-acquired pneumonia #. Hyponatremia Likely due to SIADH or hypovolemia resulting from nausea and vomiting Improved with hydration #. Alcohol withdrawal Patient is a chronic alcoholic Feels tremulous at this point. Has been very tachycardic and tachypneic #. Ketoacidosis This was probably due to alcohol induced ketoacidosis. Blood sugar was also elevated Resolved #. Alcohol induced hepatitis Liver enzymes elevated #. Hypomagnesemia Magnesium was replaced #. Diabetes mellitus type 2 Suboptimal control #. Cytopenia Patient is anemic and thrombocytopenic Likely due to alcohol use Plan: Obtain repeat basic metabolic panel Obtain repeat complete blood count Send sample for magnesium level Send sample for phosphorus level Reduced intravenous fluid to 100 cc an hour Send sample for brain natruretic peptide
[2020-09-23] MEDS: oxyCODONE 5 MG Tab PO PRN (10:10)
[2020-09-23] MEDS: Atenolol 25 MG Tab PO SCH (10:11)
[2020-09-23] MEDS: Ondansetron 4 MG/2 ML SDV IVPUSH PRN (16:55)
[2020-09-23] MEDS: Morphine 2 MG/ML SYRINGE IVPUSH PRN (16:57)
[2020-09-23] MEDS: Azithromycin 500 MG in Sodium Chloride 0.9% 250 ML IV SCH (17:29)
[2020-09-23] MEDS: traZODone 50 MG Tab PO SCH (20:55)
[2020-09-23] MEDS: Insulin Glarg,Human.Rec.Analog 100 Unit/ML SUBCUT SCH (21:01)
[2020-09-24] MEDS: Piperacillin/Tazobactam 3.375 GM in Sodium Chloride 0.9% 100 ML IV SCH ×3 (02:30→21:50)
[2020-09-24] MEDS: oxyCODONE 5 MG Tab PO PRN ×3 (03:10→20:35)
[2020-09-24] MEDS: Insulin Lispro 100 Units/ML 3 ML Vial SUBCUT SCH ×8 (03:14→21:49)
[2020-09-24 06:46] LABS: ANION GAP 11.1 mEq/L (7-13); CHLORIDE,CL 98 mmol/L (98-107); SODIUM,NA 134 mmol/L (136-145)
[2020-09-24] MEDS: Citalopram 20 MG Tab PO SCH (08:08)
[2020-09-24] MEDS: Atenolol 25 MG Tab PO SCH (08:08)
[2020-09-24] MEDS: Acetaminophen 325 MG Tab PO PRN (08:09)
[2020-09-24] MEDS: Enoxaparin 40 MG/0.4 ML Syringe SUBCUT SCH (08:10)
[2020-09-24] MEDS: Ondansetron 4 MG/2 ML SDV IVPUSH PRN ×2 (08:10→20:35)
[2020-09-24] MEDS: Lactated Ringers 1,000 ML IV SCH ×2 (08:12→17:36)
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
[2020-09-24] MEDS: Azithromycin 500 MG in Sodium Chloride 0.9% 250 ML IV SCH (17:32)
[2020-09-24] MEDS: guaiFENesin/Dextromethorphan 100-10 MG/5 ML Soln 5 ML Cup PO PRN (20:34)
[2020-09-24] MEDS: traZODone 50 MG Tab PO SCH (20:35)
[2020-09-24] MEDS: Insulin Glarg,Human.Rec.Analog 100 Unit/ML SUBCUT SCH (21:50)
[2020-09-25] MEDS: guaiFENesin/Dextromethorphan 100-10 MG/5 ML Soln 5 ML Cup PO PRN ×2 (00:32→04:31)
[2020-09-25] MEDS: Acetaminophen 325 MG Tab PO PRN (00:32)
[2020-09-25] MEDS: Lactated Ringers 1,000 ML IV SCH (04:31)
[2020-09-25] MEDS: Piperacillin/Tazobactam 3.375 GM in Sodium Chloride 0.9% 100 ML IV SCH (05:53)
[2020-09-25 09:10] VITALS: BP 135/74; PULSE 84
[2020-09-25] MEDS: Insulin Lispro 100 Units/ML 3 ML Vial SUBCUT SCH ×3 (09:10→12:40)
[2020-09-25] MEDS: Atenolol 25 MG Tab PO SCH (09:11)
[2020-09-25] MEDS: Citalopram 20 MG Tab PO SCH (09:11)
[2020-09-25] MEDS: Enoxaparin 40 MG/0.4 ML Syringe SUBCUT SCH (09:12)
[2020-09-25] MEDS: Ondansetron 4 MG/2 ML SDV IVPUSH PRN (09:34)
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
[2020-09-25] MEDS ORDERED: FLU Vacc QS2020-21 36MOS UP/PF 60 MCG/0.5 ML Syringe IM ONE (11:45)
== END 2020-09-25 12:00 | disposition home or self-care (01) | DRG 896 ==
LOC: DL.ED 15:04 → DL.MS 17:48 → DL.ED 17:56
PROVIDERS: ADMIT Hospitalist; ATTEND Internal Medicine Nephrology
DX: F10.939 Alcohol use, unspecified with withdrawal, unspecified (principal); E11.10 Type 2 diabetes mellitus with ketoacidosis without coma; J69.0 Pneumonitis due to inhalation of food and vomit; K86.1 Other chronic pancreatitis; E22.2 Syndrome of inappropriate secretion of antidiuretic hormone; I10 Essential (primary) hypertension; E11.9 Type 2 diabetes mellitus without complications; Z79.4 Long term (current) use of insulin; K70.10 Alcoholic hepatitis without ascites; E83.42 Hypomagnesemia; D75.9 Disease of blood and blood-forming organs, unspecified; I25.2 Old myocardial infarction; K21.9 Gastro-esophageal reflux disease without esophagitis; J45.909 Unspecified asthma, uncomplicated; F32.9 Major depressive disorder, single episode, unspecified; G47.00 Insomnia, unspecified; Z20.828 Contact with and (suspected) exposure to other viral communicable diseases
CPT/HCPCS: 36415; 70450; 71260; 72125; 74177; 80048; 80053; 80305-QW; 80307; 81001; 82140; 82570; 82962; 83690; 83735; 83880; 84295; 84300; 84484; 85025; 85027; 87040; 87070; 87205; 90686; 93005; 93010; 96365; 96367; 99284; 99285-25; A9270-GY; G0008; J0456; J1650; J1815-GY; J2060; J2270; J2405; J2543; J3411; J3475; J3480; J3490; J7030; J7050; J7120; Q9967; U0002

== ENCOUNTER 2020-09-25 14:12 | Emergency (ER) | payer MEDICAID ==
[2020-09-25 14:15] VITALS: BP 137/91; PULSE 74
--- NOTE | 2020-09-25 14:38 | EDM.PDOC ---
ED HPI GENERAL MEDICAL PROBLEM - General Chief Complaint: Respiratory Problem Stated Complaint: AMBULANCE Time Seen by Provider: 09/25/20 14:21 Source of Information: Reports: Patient, Old Records, RN History Limitations: Reports: No Limitations - History of Present Illness INITIAL COMMENTS - FREE TEXT/NARRATIVE: 40 year-old male who presents to the ER via ambulance for inpatient readmission for pneumonia. Patient has a history of HTN, DM, pancreatitis, and ETOH use disorder. He was discharged from inpatient unit three hours ago after being treated for pneumonia and alcohol intoxication for the last four days. Patient states he went home to his son and spend some time with his grand kids and the check he was expecting was not in the mail. He states he went out for a walk and felt SOB. He called the ambulance for a ride for inpatient readmission to the hospital. He admits he went to the pharmacy to pickup his antibiotics but could not afford it. He reports the last last time he had pneumonia, he was treated in the hospital until he felt completely well. he denies any fever, chills, SOB, chest pain, palpitations, swollen extremities at this time. He states he was not aware that the antibiotics were for pneumonia treatment. He is requesting discharge at this time. He states he thought he will be going to the hospital not ER for an evaluation. Right Shoulder Pain Score (Numeric/FACES): 8 - Related Data Allergies Allergy/AdvReac Type Severity Reaction Status Date / Time pineapple Allergy Other Verified 09/25/20 14:18 Home Meds: Home Meds metFORMIN HCl [Metformin HCl] 1,000 mg PO DAILY 08/08/18 [History] Acetaminophen 500 mg PO Q6HR PRN 09/22/20 [History] Alogliptin Benzoate [Alogliptin] 25 mg PO DAILY 09/22/20 [History] Citalopram [Citalopram HBr] 20 mg PO DAILY 09/22/20 [History] Naproxen 500 mg PO BID 09/22/20 [History] oxyCODONE 5 mg PO BID PRN 09/22/20 [History] traZODone HCl [Trazodone HCl] 150 mg PO BEDTIME 09/22/20 [History] Azithromycin 250 mg PO DAILY #5 tablet 09/25/20 [Rx] Past Medical History HEENT History: Reports: None Cardiovascular History: Reports: Hypertension, [place] Respiratory History: Reports: Asthma Gastrointestinal History: Reports: GERD, Jaundice, Pancreatitis Genitourinary History: Reports: None Musculoskeletal History: Reports: Fracture Other Musculoskeletal History: left jaw Neurological History: Reports: None Psychiatric History: Reports: Addiction, Depression Other Psychiatric History: insomnia Endocrine/Metabolic History: Reports: Diabetes, Type II Hematologic History: Reports: None Immunologic History: Reports: None Oncologic (Cancer) History: Reports: None Dermatologic History: Reports: None - Infectious Disease History Infectious Disease History: Reports: Chicken Pox - Past Surgical History Head Surgeries/Procedures: Reports: None HEENT Surgical History: Reports: Oral Surgery Other HEENT Surgeries/Procedures: jaw wired shut Musculoskeletal Surgical History: Reports: Other (See Below) Other Musculoskeletal Surgeries/Procedures:: right lower leg surgery Social & Family History - Family History Family Medical History: No Pertinent Family History - Tobacco Use Tobacco Use Status *Q: Current Some Day Tobacco User Years of Tobacco use: 5 Packs/Tins Daily: 0.1 - Caffeine Use Caffeine Use: Reports: Coffee - Recreational Drug Use Recreational Drug Use: Yes - Living Situation & Occupation Living situation: Reports: with Family Occupation: Unemployed ED ROS GENERAL - Review of Systems Review Of Systems: Comprehensive ROS is negative, except as noted in HPI. ED EXAM, GENERAL - Physical Exam Exam: See Below Exam Limited By: No Limitations General Appearance: Alert Eye Exam: Bilateral Eye: Other Ears: Normal External Exam, Normal Canal, Hearing Grossly Normal, Normal TMs Nose: Normal Inspection, Normal Mucosa, No Blood Throat/Mouth: Normal Inspection, Normal Lips, Normal Oropharynx, Normal Voice, No Airway Compromise Head: Atraumatic, Normocephalic Neck: Normal Inspection, Non-Tender Respiratory/Chest: No Respiratory Distress, Crackles, Rhonchi (basilar crackles noted on the left lower lobe) Cardiovascular: Normal Peripheral Pulses, Regular Rate, Rhythm, No Edema, No JVD Peripheral Pulses: 3+: Dorsalis Pedis (L), Dorsalis Pedis (R) GI/Abdominal: Normal Bowel Sounds, Soft, Non-Tender (Male) Exam: Deferred Rectal (Males) Exam: Deferred Back Exam: Normal Inspection, Full Range of Motion Extremities: Normal Inspection, Normal Range of Motion Neurological: Alert, Oriented Psychiatric: Normal Affect, Normal Mood Skin Exam: Dry Course - Vital Signs Last Recorded V/S: Last Vital Signs Temp 97.5 F 09/25/20 14:12 Pulse 74 09/25/20 14:12 Resp 18 09/25/20 14:12 BP 137/91 H 09/25/20 14:12 Pulse Ox 100 09/25/20 14:12 - Orders/Labs/Meds Orders: Active Orders 24 hr Category Date Time Status CBC WITH AUTO DIFF [HEME] Stat Lab 09/25/20 14:26 Ordered CMP [COMPREHENSIVE METABOLIC PN,CMP] [CHEM] Stat Lab 09/25/20 14:26 Ordered - Re-Assessments/Exams Free Text/Narrative Re-Assessment/Exam: Reviewed exam findings with patient. Labs and chest xray ordered. Patient states he had labs one day ago and will like to be discharged. He asked for a phone to make a phone call for his ride and signed out AMA. Departure - Departure Time of Disposition: 14:58 Disposition: Against Medical Advice 07 Condition: Fair Clinical Impression: Pneumonia Qualifiers: Pneumonia type: due to unspecified organism Laterality: left Lung location: lower lobe of lung Qualified Code(s): J18.9 - Pneumonia, unspecified organism - Discharge Information Forms: ED Department Discharge, Refusal of Care AMA Sepsis Event Note (ED) - Evaluation Sepsis Screening Result: No Definite Risk - Focused Exam Vital Signs: Vital Signs Temp Pulse Resp BP Pulse Ox 09/25/20 14:12 97.5 F 74 18 137/91 H 100 - My Orders Last 24 Hours: My Active Orders 09/25/20 14:26 CBC WITH AUTO DIFF [HEME] Stat CMP [COMPREHENSIVE METABOLIC PN,CMP] [CHEM] Stat - Assessment/Plan Last 24 Hours: My Active Orders 09/25/20 14:26 CBC WITH AUTO DIFF [HEME] Stat CMP [COMPREHENSIVE METABOLIC PN,CMP] [CHEM] Stat
== END 2020-09-25 14:42 | disposition left against medical advice (07) ==
LOC: DL.ED 14:12
DX: J18.9 Pneumonia, unspecified organism (principal); I10 Essential (primary) hypertension; E11.9 Type 2 diabetes mellitus without complications; I25.2 Old myocardial infarction; J45.909 Unspecified asthma, uncomplicated; F32.9 Major depressive disorder, single episode, unspecified; F17.210 Nicotine dependence, cigarettes, uncomplicated; Z79.84 Long term (current) use of oral hypoglycemic drugs; Z79.899 Other long term (current) drug therapy; Z91.018 Allergy to other foods
CPT/HCPCS: 99282; 99285

== ENCOUNTER 2020-12-17 11:42 | Emergency (ER) | payer MEDICAID ==
[2020-12-17 11:54] VITALS: BP 148/82; PULSE 94
[2020-12-17] MEDS ORDERED: Bacitracin Oint 1 GM U/D Packet TOP ONE (12:20)
--- NOTE | 2020-12-17 12:27 | EDM.PDOC ---
<KiaraWandy - Last Filed: 12/17/20 12:22> ED HPI GENERAL MEDICAL PROBLEM - General Chief Complaint: Laceration Stated Complaint: Laceration to left thumb Time Seen by Provider: 12/17/20 12:15 Source of Information: Reports: Patient History Limitations: Reports: No Limitations - History of Present Illness INITIAL COMMENTS - FREE TEXT/NARRATIVE: The patient is a 40 yo male who presents to the ED with a laceration to the left thumb. The patient was using a new knife 2 days ago and cut his left thumb. He states he covered his thumb with a bandage and removed it today and noticed it was still bleeding so he came to the ED. He denies any fever, chills, erythema or drainage from the cut, or pain of his left hand. He states his tetanus is up to date. Aside from this he offers no other acute concerns. Duration: Day(s): (2 days ago) Location: Reports: Upper Extremity, Left - Related Data Allergies Allergy/AdvReac Type Severity Reaction Status Date / Time pineapple Allergy Other Verified 12/17/20 11:54 Home Meds: Home Meds metFORMIN HCl [Metformin HCl] 1,000 mg PO DAILY 08/08/18 [History] Acetaminophen 500 mg PO Q6HR PRN 09/22/20 [History] Alogliptin Benzoate [Alogliptin] 25 mg PO DAILY 09/22/20 [History] Citalopram [Citalopram HBr] 20 mg PO DAILY 09/22/20 [History] Naproxen 500 mg PO BID 09/22/20 [History] oxyCODONE 5 mg PO BID PRN 09/22/20 [History] traZODone HCl [Trazodone HCl] 150 mg PO BEDTIME 09/22/20 [History] Azithromycin 250 mg PO DAILY #5 tablet 09/25/20 [Rx] Past Medical History HEENT History: Reports: None Cardiovascular History: Reports: Hypertension, [place] Respiratory History: Reports: Asthma Gastrointestinal History: Reports: GERD, Jaundice, Pancreatitis Genitourinary History: Reports: None Musculoskeletal History: Reports: Fracture Other Musculoskeletal History: left jaw Neurological History: Reports: None Psychiatric History: Reports: Addiction, Depression Other Psychiatric History: insomnia Endocrine/Metabolic History: Reports: Diabetes, Type II Hematologic History: Reports: None Immunologic History: Reports: None Oncologic (Cancer) History: Reports: None Dermatologic History: Reports: None - Infectious Disease History Infectious Disease History: Reports: Chicken Pox - Past Surgical History Head Surgeries/Procedures: Reports: None HEENT Surgical History: Reports: Oral Surgery Other HEENT Surgeries/Procedures: jaw wired shut Musculoskeletal Surgical History: Reports: Other (See Below) Other Musculoskeletal Surgeries/Procedures:: right lower leg surgery Social & Family History - Family History Family Medical History: No Pertinent Family History - Tobacco Use Tobacco Use Status *Q: Current Every Day Tobacco User Years of Tobacco use: 20 Packs/Tins Daily: 1 - Caffeine Use Caffeine Use: Reports: Coffee - Recreational Drug Use Recreational Drug Use: No - Living Situation & Occupation Living situation: Reports: with Family Occupation: Unemployed Review of Systems - Review of Systems Review Of Systems: See Below Constitutional: Reports: No Symptoms Respiratory: Reports: No Symptoms Cardiovascular: Reports: No Symptoms Musculoskeletal: Reports: No Symptoms Skin: Reports: Lesions, Other (laceration of the left thumb ) Neurological: Reports: No Symptoms Psychiatric: Reports: No Symptoms ED EXAM, GENERAL - Physical Exam Exam: See Below Exam Limited By: No Limitations General Appearance: Alert, No Apparent Distress Respiratory/Chest: No Respiratory Distress, Lungs Clear, Normal Breath Sounds, No Accessory Muscle Use, Chest Non-Tender Cardiovascular: Normal Peripheral Pulses, Regular Rate, Rhythm, No Edema, No Gallop, No JVD, No Murmur, No Rub Skin Exam: Warm, Dry, Intact, Normal Color, No Rash, Other (2 cm laceration on the dorsal aspect of the left thumb; no erythema, swelling, or drainage appreciated ) Departure - Departure Time of Disposition: 12:30 Disposition: Home, Self-Care 01 Condition: Good Clinical Impression: Laceration - Discharge Information *PRESCRIPTION DRUG MONITORING PROGRAM REVIEWED*: No *COPY OF PRESCRIPTION DRUG MONITORING REPORT IN PATIENT SEMAJ: No Instructions: Laceration Care, Adult, [id number] Forms: ED Department Discharge Care Plan Goals: The patient should apply antibiotic ointment to the cut of his left thumb and continue to keep covered with a bandage. Keep the area clean. Follow up with PCP or ED if area shows signs of infection. Sepsis Event Note (ED) - Evaluation Sepsis Screening Result: No Definite Risk <Mireille Lyons - Last Filed: 12/17/20 13:03> ED HPI GENERAL MEDICAL PROBLEM - History of Present Illness Onset: Sudden Onset Date: 12/15/20 Course - Vital Signs Last Recorded V/S: Last Vital Signs Temp 97.7 F 12/17/20 11:49 Pulse 94 12/17/20 11:49 Resp 16 12/17/20 11:49 BP 148/82 H 12/17/20 11:49 Pulse Ox 98 12/17/20 11:49 - Orders/Labs/Meds Meds: Medications Discontinued Medications Generic Name Dose Route Start Last Admin Trade Name Eboni PRN Reason Stop Dose Admin Bacitracin 1 dose 12/17/20 12:20 12/17/20 12:26 Bacitracin Oint 1 Gm U/D Packet TOP 12/17/20 12:21 1 dose ONETIME ONE Administration - Re-Assessments/Exams Free Text/Narrative Re-Assessment/Exam: 12/17/20 13:02 I personally performed or re-performed the physical examination and medical decision making. I have verified all student documentation or findings, including history, physical exam and/or medical decision making. Sepsis Event Note (ED) - Focused Exam Vital Signs: Vital Signs Temp Pulse Resp BP Pulse Ox 12/17/20 11:49 97.7 F 94 16 148/82 H 98
== END 2020-12-17 12:37 | disposition home or self-care (01) ==
LOC: DL.ED 11:42
DX: S61.012A Laceration without foreign body of left thumb without damage to nail, initial encounter (principal); I10 Essential (primary) hypertension; J45.909 Unspecified asthma, uncomplicated; I25.2 Old myocardial infarction; E11.9 Type 2 diabetes mellitus without complications; Z72.0 Tobacco use; Z91.018 Allergy to other foods; Z79.84 Long term (current) use of oral hypoglycemic drugs; Z79.899 Other long term (current) drug therapy; W26.0XXA Contact with knife, initial encounter
CPT/HCPCS: 99282; 99283

== ENCOUNTER 2021-01-22 23:47 | Emergency (ER) | payer MEDICAID ==
[2021-01-23 00:17] VITALS: PULSE 94
[2021-01-23 00:35] LABS: ANION GAP 17.7 mEq/L (7-13); CHLORIDE,CL 102 mmol/L (98-107); SODIUM,NA 143 mmol/L (136-145)
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
[2021-01-23 00:47] LABS: ACETAMINOPHEN 0 ug/mL (10-30 (Therapeutic))
[2021-01-23] MEDS ORDERED: MVI, Adult with Vitamin K 10 ML, Folic Acid 1 MG, Thiamine 100 MG in Lactated Ringers 1... IV ONE ×4 (00:51)
[2021-01-23 01:43] VITALS: BP 132/92
== END 2021-01-23 02:02 | disposition left against medical advice (07) ==
LOC: DL.ED 23:47
DX: F10.129 Alcohol abuse with intoxication, unspecified (principal); I10 Essential (primary) hypertension; I25.2 Old myocardial infarction; J45.909 Unspecified asthma, uncomplicated; K21.9 Gastro-esophageal reflux disease without esophagitis; E11.9 Type 2 diabetes mellitus without complications; Z79.84 Long term (current) use of oral hypoglycemic drugs; Z91.018 Allergy to other foods; Z72.0 Tobacco use; Z20.822 Contact with and (suspected) exposure to COVID-19; Y90.8 Blood alcohol level of 240 mg/100 ml or more
CPT/HCPCS: 36415; 80053; 80143; 80179; 80305; 80307; 81001; 82947; 85025; 87635; 96365; 99283; J3411; J7120; J3490; U0002

== ENCOUNTER 2021-01-29 18:56 | Emergency (ER) | payer MEDICAID ==
[2021-01-29 19:50] LABS: ANION GAP 19.8 mEq/L (7-13); CHLORIDE,CL 94 mmol/L (98-107); SODIUM,NA 131 mmol/L (136-145)
[2021-01-29 19:51] LABS: ACETAMINOPHEN 0 ug/mL (10-30 (Therapeutic))
== END 2021-01-29 19:58 | disposition left against medical advice (07) ==
LOC: DL.ED 18:56
DX: Z53.21 Procedure and treatment not carried out due to patient leaving prior to being seen by health care provider (principal)
CPT/HCPCS: 36415; 80053; 80143; 80179; 80307; 85025

== ENCOUNTER 2021-07-25 02:44 | Inpatient (IN) | payer MEDICAID ==
[2021-07-25] MEDS ORDERED: LORazepam 2 MG/ML SDV IVPUSH ONE ×3 (02:55→06:11)
[2021-07-25] MEDS ORDERED: Ondansetron 4 MG/2 ML SDV IVPUSH ONE (02:55)
[2021-07-25] MEDS ORDERED: MVI, Adult with Vitamin K 10 ML, Folic Acid 1 MG, Thiamine 100 MG in Lactated Ringers 1... IV ONE ×4 (02:56)
[2021-07-25 03:35] LABS: ANION GAP 14.1 mEq/L (7-13); CHLORIDE,CL 91 mmol/L (98-107); SODIUM,NA 130 mmol/L (136-145)
[2021-07-25] MEDS ORDERED: Pantoprazole 40 MG Vial IVPUSH ONE (03:35)
[2021-07-25] MEDS ORDERED: Bacitracin Oint 1 GM U/D Packet TOP ONE (03:36)
--- NOTE | 2021-07-25 03:48 | EDM.PDOC ---
ED HPI GENERAL MEDICAL PROBLEM - General Stated Complaint: AMBULANCE Time Seen by Provider: 07/25/21 03:05 Source of Information: Reports: Patient History Limitations: Reports: No Limitations - History of Present Illness INITIAL COMMENTS - FREE TEXT/NARRATIVE: ED with c/o Alcohol withdrawal, chestpain, pointing epigastric area, nausea shakes, hallucinating. Reports drinking hard liquor for week, nothing past 2 days, sober for 7 months prior. Staes drank to deal with mom dying. Hx withdrawal seizures 7-8 years ago. dog bite right leg 2 days prior Left Chest Pain Score (Numeric/FACES): 8 headache Pain Score (Numeric/FACES): 9 - Related Data Allergies Allergy/AdvReac Type Severity Reaction Status Date / Time pineapple Allergy Other Verified 07/25/21 08:00 Home Meds: Home Meds metFORMIN HCl [Metformin HCl] 1,000 mg PO DAILY 08/08/18 [History] Acetaminophen 500 mg PO Q6HR PRN 09/22/20 [History] Alogliptin Benzoate [Alogliptin] 25 mg PO DAILY 09/22/20 [History] Citalopram [Citalopram HBr] 20 mg PO DAILY 09/22/20 [History] Naproxen 500 mg PO BID 09/22/20 [History] oxyCODONE 5 mg PO BID PRN 09/22/20 [History] traZODone HCl [Trazodone HCl] 150 mg PO BEDTIME 09/22/20 [History] lisinopriL [Lisinopril] 20 mg PO DAILY 07/25/21 [History] Past Medical History HEENT History: Reports: None Cardiovascular History: Reports: Hypertension, [place] Respiratory History: Reports: Asthma Gastrointestinal History: Reports: GERD, Jaundice, Pancreatitis Genitourinary History: Reports: None Musculoskeletal History: Reports: Fracture Other Musculoskeletal History: left jaw Neurological History: Reports: None Psychiatric History: Reports: Addiction, Depression Other Psychiatric History: insomnia Endocrine/Metabolic History: Reports: Diabetes, Type II Hematologic History: Reports: None Immunologic History: Reports: None Oncologic (Cancer) History: Reports: None Dermatologic History: Reports: None - Infectious Disease History Infectious Disease History: Reports: Chicken Pox - Past Surgical History Head Surgeries/Procedures: Reports: None HEENT Surgical History: Reports: Oral Surgery Other HEENT Surgeries/Procedures: jaw wired shut Musculoskeletal Surgical History: Reports: Other (See Below) Other Musculoskeletal Surgeries/Procedures:: right lower leg surgery Social & Family History - Family History Family Medical History: No Pertinent Family History - Tobacco Use Tobacco Use Status *Q: Never Tobacco User - Caffeine Use Caffeine Use: Reports: Coffee, Soda - Alcohol Use Days Per Week of Alcohol Use: 7 Number of Drinks Per Day: 10 Total Drinks Per Week: 70 Date of Last Drink: 07/23/21 - Recreational Drug Use Recreational Drug Use: No - Living Situation & Occupation Living situation: Reports: with Family Occupation: Unemployed ED ROS GENERAL - Review of Systems Review Of Systems: Comprehensive ROS is negative, except as noted in HPI. ED EXAM, GENERAL - Physical Exam Exam: See Below Exam Limited By: No Limitations General Appearance: Alert, Moderate Distress Eye Exam: Bilateral Eye: Conjunctival Injection, EOMI Ears: Normal External Exam, Hearing Grossly Normal Nose: Normal Inspection, Normal Mucosa Throat/Mouth: Normal Inspection Head: Atraumatic, Normocephalic Neck: Normal Inspection Respiratory/Chest: No Respiratory Distress, Lungs Clear, Normal Breath Sounds Cardiovascular: Normal Peripheral Pulses, Regular Rate, Rhythm GI/Abdominal: Normal Bowel Sounds, Soft, Tender (epigastric) Extremities: Normal Inspection Neurological: Alert, Oriented, Normal Cognition, Other (tremor) Skin Exam: Warm, Dry, Wound/Incision (2 puncture wounds inner distal thigh, no redness no swelling, scant dried blood) Course - Vital Signs Last Recorded V/S: Last Vital Signs Temp 97.6 F 07/25/21 20:00 Pulse 70 07/25/21 20:00 Resp 18 07/25/21 20:00 BP 150/93 H 07/25/21 20:00 Pulse Ox 99 07/25/21 20:00 - Orders/Labs/Meds Orders: Active Orders 24 hr Category Date Time Status Admission Diagnosis [ADT] Stat ADT 07/25/21 07:06 Ordered Admission Status [Patient Status] [ADT] Stat ADT 07/25/21 07:06 Active Blood Glucose Check, Bedside [RC] ONETIME Care 07/25/21 06:11 Active Medication Orders Acetaminophen (Acetaminophen 325 Mg Tab) 650 mg PO Q4H PRN PRN Reason: Pain (Mild 1-3)/fever Chlordiazepoxide HCl (Chlordiazepoxide 25 Mg Cap) 50 mg PO Q4H [facility]; Protocol Stop: 07/26/21 08:01 Last Admin: 07/26/21 00:21 Dose: 50 mg Documented by: Admin: 07/25/21 19:45 Dose: 50 mg Documented by: Admin: 07/25/21 16:16 Dose: 50 mg Documented by: Admin: 07/25/21 12:31 Dose: 50 mg Documented by: VALERIE Chlordiazepoxide HCl (Chlordiazepoxide 25 Mg Cap) 50 mg PO Q6H [facility]; Protocol Stop: 07/27/21 08:01 Chlordiazepoxide HCl (Chlordiazepoxide 25 Mg Cap) 25 mg PO Q4H [facility]; Protocol Stop: 07/28/21 08:01 Chlordiazepoxide HCl (Chlordiazepoxide 25 Mg Cap) 25 mg PO Q6H [facility]; Protocol Stop: 07/29/21 08:01 Citalopram Hydrobromide (Citalopram 20 Mg Tab) 20 mg PO DAILY [facility] Last Admin: 07/25/21 09:47 Dose: 20 mg Documented by: VALERIE Ibuprofen (Ibuprofen 600 Mg Tab) 600 mg PO Q6H PRN PRN Reason: Pain (mild 1-3) Lisinopril (Lisinopril 20 Mg Tab) 20 mg PO DAILY [facility] Last Admin: 07/25/21 09:47 Dose: 20 mg Documented by: VALERIE Metformin HCl (Metformin 500 Mg Tab) 1,000 mg PO DAILY [facility] Last Admin: 07/25/21 09:47 Dose: 1,000 mg Documented by: VALERIE Naproxen (Naproxen 500 Mg Tab) 500 mg PO BID [facility] Last Admin: 07/25/21 21:01 Dose: 500 mg Documented by: Admin: 07/25/21 09:49 Dose: 500 mg Documented by: VALERIE Ondansetron HCl (Ondansetron 4 Mg Tab.Dis) 4 mg PO Q6H PRN PRN Reason: nausea, able to take PO Oxycodone HCl (Oxycodone 5 Mg Tab) 5 mg PO BID PRN PRN Reason: Pain (moderate 4-6) Last Admin: 07/25/21 09:49 Dose: 5 mg Documented by: VALERIE Trazodone HCl (Trazodone 50 Mg Tab) 150 mg PO BEDTIME [facility] Last Admin: 07/25/21 21:02 Dose: 150 mg Documented by: TAIWO Labs: Laboratory Tests 07/25/21 07/25/21 07/25/21 Range/Units 03:07 03:10 03:10 WBC 8.0 (5.0-10.0) 10^3/uL RBC 4.18 L (4.6-6.2) 10^6/uL Hgb 13.0 L (14.0-18.0) g/dL Hct 36.7 L (40.0-54.0) % MCV 87.8 (80-100) fL MCH 31.1 (27.0-34.0) pg MCHC 35.4 H (33.0-35.0) g/dL Plt Count 212 (150-450) 10^3/uL Neut % (Auto) 45.9 (42.2-75.2) % Lymph % (Auto) 39.7 (20.5-50.1) % [place] % (Auto) 13.8 H (2-8) % Eos % (Auto) 0.4 L (1.0-3.0) % Baso % (Auto) 0.2 (0.0-1.0) % Sodium 130 L (136-145) mmol/L Potassium 3.1 L (3.5-5.1) mmol/L Chloride 91 L (98-107) mmol/L Carbon Dioxide 28 (21-32) mmol/L Anion Gap 14.1 H (7-13) mEq/L BUN 5 L (7-18) mg/dL Creatinine 0.77 (0.70-1.30) mg/dL Est Cr Clr Drug Dosing 123.70 mL/min Estimated GFR (MDRD) > 60 BUN/Creatinine Ratio 6.5 (No establ ref range) Glucose 354 H (70-99) mg/dL POC Glucose (70-99) mg/dL Calcium 8.2 L (8.5-10.1) mg/dL Total Bilirubin 0.3 (0.2-1.0) mg/dL AST 132 H (15-37) U/L ALT 158 H (16-63) U/L Alkaline Phosphatase 250 H (46-116) U/L Total Protein 8.9 H (6.4-8.2) g/dL Albumin 3.2 L (3.4-5.0) g/dL Globulin 5.7 Albumin/Globulin Ratio 0.56 Amylase 118 H (25-115) U/L Lipase 883 H (73-393) U/L Urine Color (YELLOW) Urine Appearance (CLEAR) Urine pH (5.0-9.0) Ur Specific [place] (1.005-1.030) Urine Protein (NEGATIVE) Urine Glucose (UA) (NEGATIVE) Urine Ketones (NEGATIVE) Urine Occult Blood (NEGATIVE) Urine Nitrite (NEGATIVE) Urine Bilirubin (NEGATIVE) Urine Urobilinogen (0.2-1.0) mg/dL Ur Leukocyte Esterase (NEGATIVE) Urine RBC (0-5) /HPF Urine WBC (0-5/HPF) /HPF Ur Epithelial Cells (NOT SEEN) /HPF Urine Bacteria (0-FEW/HPF) /HPF Urine Opiates Screen (NEGATIVE) Ur Oxycodone Screen (NEGATIVE) Urine Methadone Screen (NEGATIVE) Ur Barbiturates Screen (NEGATIVE) U Tricyclic Antidepress (NEGATIVE) Ur Phencyclidine Scrn (NEGATIVE) Ur Amphetamine Screen (NEGATIVE) U Methamphetamines Scrn (NEGATIVE) Urine MDMA Screen (NEGATIVE) U Benzodiazepines Scrn (NEGATIVE) Urine Cocaine Screen (NEGATIVE) U Marijuana (THC) Screen (NEGATIVE) Ethyl Alcohol 153 (0) mg/dL SARS-CoV-2 RNA (IRENA) Negative (NEGATIVE) 07/25/21 07/25/21 07/25/21 Range/Units 04:35 04:35 06:10 WBC (5.0-10.0) 10^3/uL RBC (4.6-6.2) 10^6/uL Hgb (14.0-18.0) g/dL Hct (40.0-54.0) % MCV (80-100) fL MCH (27.0-34.0) pg MCHC (33.0-35.0) g/dL Plt Count (150-450) 10^3/uL Neut % (Auto) (42.2-75.2) % Lymph % (Auto) (20.5-50.1) % [place] % (Auto) (2-8) % Eos % (Auto) (1.0-3.0) % Baso % (Auto) (0.0-1.0) % Sodium (136-145) mmol/L Potassium (3.5-5.1) mmol/L Chloride (98-107) mmol/L Carbon Dioxide (21-32) mmol/L Anion Gap (7-13) mEq/L BUN (7-18) mg/dL Creatinine (0.70-1.30) mg/dL Est Cr Clr Drug Dosing mL/min Estimated GFR (MDRD) BUN/Creatinine Ratio (No establ ref range) Glucose (70-99) mg/dL POC Glucose 255 H (70-99) mg/dL Calcium (8.5-10.1) mg/dL Total Bilirubin (0.2-1.0) mg/dL AST (15-37) U/L ALT (16-63) U/L Alkaline Phosphatase (46-116) U/L Total Protein (6.4-8.2) g/dL Albumin (3.4-5.0) g/dL Globulin Albumin/Globulin Ratio Amylase (25-115) U/L Lipase (73-393) U/L Urine Color Yellow (YELLOW) Urine Appearance Slightly cloudy (CLEAR) Urine pH 5.5 (5.0-9.0) Ur Specific [place] 1.010 (1.005-1.030) Urine Protein Negative (NEGATIVE) Urine Glucose (UA) 500 H (NEGATIVE) Urine Ketones Negative (NEGATIVE) Urine Occult Blood Trace-intact H (NEGATIVE) Urine Nitrite Negative (NEGATIVE) Urine Bilirubin Negative (NEGATIVE) Urine Urobilinogen 0.2 (0.2-1.0) mg/dL Ur Leukocyte Esterase Negative (NEGATIVE) Urine RBC 0-5 (0-5) /HPF Urine WBC 0-5 (0-5/HPF) /HPF Ur Epithelial Cells Rare (NOT SEEN) /HPF Urine Bacteria Rare (0-FEW/HPF) /HPF Urine Opiates Screen Negative (NEGATIVE) Ur Oxycodone Screen Negative (NEGATIVE) Urine Methadone Screen Negative (NEGATIVE) Ur Barbiturates Screen Negative (NEGATIVE) U Tricyclic Antidepress Negative (NEGATIVE) Ur Phencyclidine Scrn Negative (NEGATIVE) Ur Amphetamine Screen Negative (NEGATIVE) U Methamphetamines Scrn Positive H (NEGATIVE) Urine MDMA Screen Negative (NEGATIVE) U Benzodiazepines Scrn Negative (NEGATIVE) Urine Cocaine Screen Negative (NEGATIVE) U Marijuana (THC) Screen Negative (NEGATIVE) Ethyl Alcohol (0) mg/dL SARS-CoV-2 RNA (IRENA) (NEGATIVE) Meds: Medications Generic Name Dose Route Start Last Admin Trade Name Freq PRN Reason Stop Dose Admin Acetaminophen 650 mg 07/25/21 08:11 Acetaminophen 325 Mg Tab PO Q4H PRN Pain (Mild 1-3)/fever Chlordiazepoxide HCl 50 mg 07/25/21 12:00 07/26/21 00:21 Chlordiazepoxide 25 Mg Cap PO 07/26/21 08:01 50 mg Q4H [facility] Administration Protocol Chlordiazepoxide HCl 50 mg 07/26/21 14:00 Chlordiazepoxide 25 Mg Cap PO 07/27/21 08:01 Q6H [facility] Protocol Chlordiazepoxide HCl 25 mg 07/27/21 12:00 Chlordiazepoxide 25 Mg Cap PO 07/28/21 08:01 Q4H [facility] Protocol Chlordiazepoxide HCl 25 mg 07/28/21 14:00 Chlordiazepoxide 25 Mg Cap PO 07/29/21 08:01 Q6H [facility] Protocol Citalopram Hydrobromide 20 mg 07/25/21 09:00 07/25/21 09:47 Citalopram 20 Mg Tab PO 20 mg DAILY [facility] Administration Ibuprofen 600 mg 07/25/21 08:11 Ibuprofen 600 Mg Tab PO Q6H PRN Pain (mild 1-3) Lisinopril 20 mg 07/25/21 09:00 07/25/21 09:47 Lisinopril 20 Mg Tab PO 20 mg DAILY [facility] Administration Metformin HCl 1,000 mg 07/25/21 09:00 07/25/21 09:47 Metformin 500 Mg Tab PO 1,000 mg DAILY [facility] Administration Naproxen 500 mg 07/25/21 09:00 07/25/21 21:01 Naproxen 500 Mg Tab PO 500 mg BID [facility] Administration Ondansetron HCl 4 mg 07/25/21 08:11 Ondansetron 4 Mg Tab.Dis PO Q6H PRN nausea, able to take PO Oxycodone HCl 5 mg 07/25/21 08:12 07/25/21 09:49 Oxycodone 5 Mg Tab PO 5 mg BID PRN Administration Pain (moderate 4-6) Trazodone HCl 150 mg 07/25/21 21:00 07/25/21 21:02 Trazodone 50 Mg Tab PO 150 mg BEDTIME [facility] Administration Discontinued Medications Generic Name Dose Route Start Last Admin Trade Name Eboni PRN Reason Stop Dose Admin Bacitracin 1 dose 07/25/21 03:36 07/25/21 03:47 Bacitracin Oint 1 Gm U/D Packet TOP 07/25/21 03:37 1 dose ONETIME ONE Administration Chlordiazepoxide HCl 0 mg 07/25/21 11:30 Chlordiazepoxide 25 Mg Cap PO ASDIRECTED [facility] Chlordiazepoxide HCl 0 mg 07/25/21 13:00 Chlordiazepoxide 25 Mg Cap PO QID [facility] Protocol Multivitamins/Minerals 10 ml/ 1,011.2 mls @ 999 mls/hr 07/25/21 02:56 07/25/21 03:07 Folic Acid 1 mg/ Thiamine HCl IV 07/25/21 03:56 999 mls/hr 100 mg/ Lactated Ringer's ONETIME ONE Administration Potassium Chloride 20 meq/ 100 mls @ 50 mls/hr 07/25/21 03:50 07/25/21 03:54 Premix IV 07/25/21 05:49 50 mls/hr ONETIME ONE Administration Sodium Chloride 1,000 mls @ 100 mls/hr 07/25/21 03:52 07/25/21 03:54 Normal Saline IV 07/25/21 13:51 100 mls/hr .BOLUS ONE Administration Lorazepam 2 mg 07/25/21 02:55 07/25/21 03:08 Lorazepam 2 Mg/Ml Sdv IVPUSH 07/25/21 02:56 2 mg ONETIME ONE Administration Lorazepam 1 mg 07/25/21 04:05 07/25/21 04:14 Lorazepam 2 Mg/Ml Sdv IVPUSH 07/25/21 04:06 1 mg ONETIME ONE Administration Lorazepam 1 mg 07/25/21 06:11 07/25/21 06:20 Lorazepam 2 Mg/Ml Sdv IVPUSH 07/25/21 06:12 1 mg ONETIME ONE Administration Metoprolol Tartrate 2.5 mg 07/25/21 04:07 07/25/21 04:14 Metoprolol Tartrate 5 Mg/5 Ml Sdv IVPUSH 07/25/21 04:08 2.5 mg ONETIME ONE Administration Metoprolol Tartrate 2.5 mg 07/25/21 06:11 07/25/21 06:20 Metoprolol Tartrate 5 Mg/5 Ml Sdv IVPUSH 07/25/21 06:12 2.5 mg ONETIME ONE Administration Ondansetron HCl 4 mg 07/25/21 02:55 07/25/21 03:08 Ondansetron 4 Mg/2 Ml Sdv IVPUSH 07/25/21 02:56 4 mg ONETIME ONE Administration Pantoprazole Sodium 80 mg 07/25/21 03:35 07/25/21 03:47 Pantoprazole 40 Mg Vial IVPUSH 07/25/21 03:36 80 mg .BOLUS ONE Administration Departure - Departure Time of Disposition: 07:30 Disposition: Admitted As Inpatient 64 Condition: Good Clinical Impression: Hypokalemia, Alcohol withdrawal delirium, Alcohol abuse, Gastroenteritis, Poor compliance with medication, Hyperglycemia due to diabetes mellitus, Methamphetamine use Dog bite Qualifiers: Encounter type: initial encounter Qualified Code(s): W54.0XXA - Bitten by dog, initial encounter Hypertension Qualifiers: Hypertension type: primary hypertension Qualified Code(s): I10 - Essential (primary) hypertension - Discharge Information *PRESCRIPTION DRUG MONITORING PROGRAM REVIEWED*: No *COPY OF PRESCRIPTION DRUG MONITORING REPORT IN PATIENT SEMAJ: No Sepsis Event Note (ED) - Evaluation Sepsis Screening Result: No Definite Risk - My Orders Last 24 Hours: My Active Orders 07/25/21 06:11 Blood Glucose Check, Bedside [RC] ONETIME 07/25/21 07:06 Admission Diagnosis [ADT] Stat Admission Status [Patient Status] [ADT] Stat - Assessment/Plan Last 24 Hours: My Active Orders 07/25/21 06:11 Blood Glucose Check, Bedside [RC] ONETIME 07/25/21 07:06 Admission Diagnosis [ADT] Stat Admission Status [Patient Status] [ADT] Stat
[2021-07-25] MEDS ORDERED: Potassium Chloride 20 MEQ in Premix Bag 1 BAG IV ONE (03:50)
[2021-07-25] MEDS ORDERED: Sodium Chloride 0.9% 1,000 ML IV ONE (03:52)
[2021-07-25] MEDS ORDERED: Metoprolol Tartrate 5 MG/5 ML SDV IVPUSH ONE ×2 (04:07→06:11)
[2021-07-25 04:49] LABS: AMPHETAMINES,URINE NEGATIVE (NEGATIVE); BARBITURATES,URINE NEGATIVE (NEGATIVE); BENZODIAZEPINE,URINE NEGATIVE (NEGATIVE); MDMA (ECSTASY), URINE NEGATIVE (NEGATIVE); METHADONE,URINE NEGATIVE (NEGATIVE); METHAMPHETAMINES,URINE POSITIVE (NEGATIVE); OPIATES,URINE NEGATIVE (NEGATIVE); OXYCODONE,URINE NEGATIVE (NEGATIVE); PHENCYCLIDINE,URINE NEGATIVE (NEGATIVE); TCA,URINE NEGATIVE (NEGATIVE)
[2021-07-25] MEDS ORDERED: Acetaminophen 325 MG Tab PO PRN (08:11)
[2021-07-25] MEDS ORDERED: Ondansetron 4 MG Tab.DIS PO PRN (08:11)
[2021-07-25] MEDS ORDERED: Ibuprofen 600 MG Tab PO PRN (08:11)
[2021-07-25] MEDS ORDERED: oxyCODONE 5 MG Tab PO PRN (08:12)
[2021-07-25] MEDS: Lisinopril 20 MG Tab PO SCH (09:47)
[2021-07-25] MEDS: Citalopram 20 MG Tab PO SCH (09:47)
[2021-07-25] MEDS: metFORMIN 500 MG Tab PO SCH (09:47)
[2021-07-25] MEDS: Naproxen 500 MG Tab PO SCH ×2 (09:49→21:01)
[2021-07-25] MEDS ORDERED: chlordiazePOXIDE 25 MG Cap PO SCH ×2 (11:30→13:00)
[2021-07-25] MEDS: chlordiazePOXIDE 25 MG Cap PO SCH ×3 (12:31→19:45)
--- NOTE | 2021-07-25 19:19 | PCM.HP ---
H&P History of Present Illness - General Date of Service: 07/25/21 Admit Problem/Dx: Admission Diagnosis/Problem Admission Diagnosis/Problem Alcohol withdrawal syndrome - History of Present Illness Initial Comments - Free Text/Narative: Russell is a 41-year-old man who presented to the ER early this morning requesting detox from alcohol. He has longstanding chronic alcohol abuse, and states that most recently, he was sober for 7 months before relapsing a few weeks ago. He would very much like to return to sobriety, so is here requesting detox at this time. He states that his last alcoholic drink was greater than 24 hours ago, however his blood alcohol measured in the ED this morning was 0.153. Left Chest Pain Score (Numeric/FACES): 8 - Related Data Allergies/Adverse Reactions: Allergies Allergy/AdvReac Type Severity Reaction Status Date / Time pineapple Allergy Other Verified 07/25/21 08:00 Home Medications: Home Meds metFORMIN HCl [Metformin HCl] 1,000 mg PO DAILY 08/08/18 [History] Acetaminophen 500 mg PO Q6HR PRN 09/22/20 [History] Alogliptin Benzoate [Alogliptin] 25 mg PO DAILY 09/22/20 [History] Citalopram [Citalopram HBr] 20 mg PO DAILY 09/22/20 [History] Naproxen 500 mg PO BID 09/22/20 [History] oxyCODONE 5 mg PO BID PRN 09/22/20 [History] traZODone HCl [Trazodone HCl] 150 mg PO BEDTIME 09/22/20 [History] lisinopriL [Lisinopril] 20 mg PO DAILY 07/25/21 [History] Past Medical History HEENT History: Reports: None Cardiovascular History: Reports: Hypertension, GA Respiratory History: Reports: Asthma Gastrointestinal History: Reports: GERD, Jaundice, Pancreatitis Genitourinary History: Reports: None Musculoskeletal History: Reports: Fracture Other Musculoskeletal History: left jaw Neurological History: Reports: None Psychiatric History: Reports: Addiction, Depression Other Psychiatric History: insomnia Endocrine/Metabolic History: Reports: Diabetes, Type II Hematologic History: Reports: None Immunologic History: Reports: None Oncologic (Cancer) History: Reports: None Dermatologic History: Reports: None - Infectious Disease History Infectious Disease History: Reports: Chicken Pox - Past Surgical History Head Surgeries/Procedures: Reports: None HEENT Surgical History: Reports: Oral Surgery Other HEENT Surgeries/Procedures: jaw wired shut Musculoskeletal Surgical History: Reports: Other (See Below) Other Musculoskeletal Surgeries/Procedures:: right lower leg surgery Social & Family History - Family History Family Medical History: No Pertinent Family History - Tobacco Use Tobacco Use Status *Q: Never Tobacco User - Caffeine Use Caffeine Use: Reports: Coffee, Soda - Alcohol Use Days Per Week of Alcohol Use: 7 Number of Drinks Per Day: 10 Total Drinks Per Week: 70 Date of Last Drink: 07/23/21 - Recreational Drug Use Recreational Drug Use: No - Living Situation & Occupation Living situation: Reports: with Family Occupation: Unemployed H&P Review of Systems - Review of Systems: Review Of Systems: See Below General: Reports: Chills. Denies: Weight Loss, Weight Gain HEENT: Denies: Hearing Changes, Visual Changes Pulmonary: Denies: Shortness of Breath, Cough Cardiovascular: Denies: Chest Pain, Palpitations Gastrointestinal: Reports: Nausea, Vomiting. Denies: Hematochezia, Melena Genitourinary: Denies: Dysuria, Hematuria Musculoskeletal: Denies: Joint Pain, Joint Swelling Skin: Reports: Burn(s). Denies: Bruising Psychiatric: Reports: Depression Neurological: Denies: Trouble Speaking, Difficulty Walking Hematologic/Lymphatic: Denies: Easy Bleeding, Easy Bruising Review of Systems Comment:: Rest of his review of systems is complete and negative Exam - Exam Exam: See Below - Vital Signs Vital Signs: Last Vital Signs Temp 98.3 F 07/25/21 11:51 Pulse 84 07/25/21 11:51 Resp 18 07/25/21 11:51 BP 163/86 H 07/25/21 11:51 Pulse Ox 97 07/25/21 11:51 Weight: 203 lb 8 oz - Exam Physical Exam Comments:: General: Patient is a 41-year-old man in no acute distress Oropharynx is clear, mucous membranes are moist Neck: Supple, no lymphadenopathy Heart: Regular rate and rhythm, 1 out of 6 to 2 out of 6 systolic murmur best heard over the apex Lungs: Clear to auscultation throughout Abdomen: Soft, nontender to palpation, normal bowel sounds heard throughout Skin: He has a few small casas on his arms, which he states are from working on hot machines, and are several days old. They appear stable at this time, do not need any intervention. - Patient Data Lab Results Last 24 hrs: Laboratory Results - last 24 hr 07/25/21 07/25/21 07/25/21 Range/Units 03:07 03:10 03:10 WBC 8.0 (5.0-10.0) 10^3/uL RBC 4.18 L (4.6-6.2) 10^6/uL Hgb 13.0 L (14.0-18.0) g/dL Hct 36.7 L (40.0-54.0) % MCV 87.8 (80-100) fL MCH 31.1 (27.0-34.0) pg MCHC 35.4 H (33.0-35.0) g/dL Plt Count 212 (150-450) 10^3/uL Neut % (Auto) 45.9 (42.2-75.2) % Lymph % (Auto) 39.7 (20.5-50.1) % [place] % (Auto) 13.8 H (2-8) % Eos % (Auto) 0.4 L (1.0-3.0) % Baso % (Auto) 0.2 (0.0-1.0) % Sodium 130 L (136-145) mmol/L Potassium 3.1 L (3.5-5.1) mmol/L Chloride 91 L (98-107) mmol/L Carbon Dioxide 28 (21-32) mmol/L Anion Gap 14.1 H (7-13) mEq/L BUN 5 L (7-18) mg/dL Creatinine 0.77 (0.70-1.30) mg/dL Est Cr Clr Drug Dosing 123.70 mL/min Estimated GFR (MDRD) > 60 BUN/Creatinine Ratio 6.5 (No establ ref range) Glucose 354 H (70-99) mg/dL POC Glucose (70-99) mg/dL Calcium 8.2 L (8.5-10.1) mg/dL Total Bilirubin 0.3 (0.2-1.0) mg/dL AST 132 H (15-37) U/L ALT 158 H (16-63) U/L Alkaline Phosphatase 250 H (46-116) U/L Total Protein 8.9 H (6.4-8.2) g/dL Albumin 3.2 L (3.4-5.0) g/dL Globulin 5.7 Albumin/Globulin Ratio 0.56 Amylase 118 H (25-115) U/L Lipase 883 H (73-393) U/L Urine Color (YELLOW) Urine Appearance (CLEAR) Urine pH (5.0-9.0) Ur Specific [place] (1.005-1.030) Urine Protein (NEGATIVE) Urine Glucose (UA) (NEGATIVE) Urine Ketones (NEGATIVE) Urine Occult Blood (NEGATIVE) Urine Nitrite (NEGATIVE) Urine Bilirubin (NEGATIVE) Urine Urobilinogen (0.2-1.0) mg/dL Ur Leukocyte Esterase (NEGATIVE) Urine RBC (0-5) /HPF Urine WBC (0-5/HPF) /HPF Ur Epithelial Cells (NOT SEEN) /HPF Urine Bacteria (0-FEW/HPF) /HPF Urine Opiates Screen (NEGATIVE) Ur Oxycodone Screen (NEGATIVE) Urine Methadone Screen (NEGATIVE) Ur Barbiturates Screen (NEGATIVE) U Tricyclic Antidepress (NEGATIVE) Ur Phencyclidine Scrn (NEGATIVE) Ur Amphetamine Screen (NEGATIVE) U Methamphetamines Scrn (NEGATIVE) Urine MDMA Screen (NEGATIVE) U Benzodiazepines Scrn (NEGATIVE) Urine Cocaine Screen (NEGATIVE) U Marijuana (THC) Screen (NEGATIVE) Ethyl Alcohol 153 (0) mg/dL SARS-CoV-2 RNA (IRENA) Negative (NEGATIVE) 07/25/21 07/25/21 07/25/21 Range/Units 04:35 04:35 06:10 WBC (5.0-10.0) 10^3/uL RBC (4.6-6.2) 10^6/uL Hgb (14.0-18.0) g/dL Hct (40.0-54.0) % MCV (80-100) fL MCH (27.0-34.0) pg MCHC (33.0-35.0) g/dL Plt Count (150-450) 10^3/uL Neut % (Auto) (42.2-75.2) % Lymph % (Auto) (20.5-50.1) % [place] % (Auto) (2-8) % Eos % (Auto) (1.0-3.0) % Baso % (Auto) (0.0-1.0) % Sodium (136-145) mmol/L Potassium (3.5-5.1) mmol/L Chloride (98-107) mmol/L Carbon Dioxide (21-32) mmol/L Anion Gap (7-13) mEq/L BUN (7-18) mg/dL Creatinine (0.70-1.30) mg/dL Est Cr Clr Drug Dosing mL/min Estimated GFR (MDRD) BUN/Creatinine Ratio (No establ ref range) Glucose (70-99) mg/dL POC Glucose 255 H (70-99) mg/dL Calcium (8.5-10.1) mg/dL Total Bilirubin (0.2-1.0) mg/dL AST (15-37) U/L ALT (16-63) U/L Alkaline Phosphatase (46-116) U/L Total Protein (6.4-8.2) g/dL Albumin (3.4-5.0) g/dL Globulin Albumin/Globulin Ratio Amylase (25-115) U/L Lipase (73-393) U/L Urine Color Yellow (YELLOW) Urine Appearance Slightly cloudy (CLEAR) Urine pH 5.5 (5.0-9.0) Ur Specific [place] 1.010 (1.005-1.030) Urine Protein Negative (NEGATIVE) Urine Glucose (UA) 500 H (NEGATIVE) Urine Ketones Negative (NEGATIVE) Urine Occult Blood Trace-intact H (NEGATIVE) Urine Nitrite Negative (NEGATIVE) Urine Bilirubin Negative (NEGATIVE) Urine Urobilinogen 0.2 (0.2-1.0) mg/dL Ur Leukocyte Esterase Negative (NEGATIVE) Urine RBC 0-5 (0-5) /HPF Urine WBC 0-5 (0-5/HPF) /HPF Ur Epithelial Cells Rare (NOT SEEN) /HPF Urine Bacteria Rare (0-FEW/HPF) /HPF Urine Opiates Screen Negative (NEGATIVE) Ur Oxycodone Screen Negative (NEGATIVE) Urine Methadone Screen Negative (NEGATIVE) Ur Barbiturates Screen Negative (NEGATIVE) U Tricyclic Antidepress Negative (NEGATIVE) Ur Phencyclidine Scrn Negative (NEGATIVE) Ur Amphetamine Screen Negative (NEGATIVE) U Methamphetamines Scrn Positive H (NEGATIVE) Urine MDMA Screen Negative (NEGATIVE) U Benzodiazepines Scrn Negative (NEGATIVE) Urine Cocaine Screen Negative (NEGATIVE) U Marijuana (THC) Screen Negative (NEGATIVE) Ethyl Alcohol (0) mg/dL SARS-CoV-2 RNA (IRENA) (NEGATIVE) Result Diagrams: 07/25/21 03:10 07/25/21 03:10 *Q Meaningful Use (ADM) - VTE *Q VTE Anticoagulation Contraindications: Treatment Not Tolerated - VTE Risk Assess *Q Each Risk Factor Represents 1 Point: Age 41 - 59 years Total Score 1 Point Risk Factors: 1 Each Risk Factor Represents 2 Points: None Total Score 2 Point Risk Factors: 0 Each Risk Factor Represents 3 Points: None Total Score 3 Point Risk Factors: 0 Each Risk Factor Represents 5 Points: None Total Score 5 Point Risk Factors: 0 Venous Thromboembolism Risk Factor Score *Q: 1 - Problem List (1) Alcohol abuse SNOMED Code(s): 77610221 ICD Code: F10.10 - ALCOHOL ABUSE, UNCOMPLICATED Status: Acute Current Visit: No (2) Alcohol withdrawal syndrome SNOMED Code(s): 016464741 ICD Code: F10.239 - ALCOHOL DEPENDENCE WITH WITHDRAWAL, UNSPECIFIED Status: Acute Current Visit: No Problem List Initiated/Reviewed/Updated: Yes Orders Last 24hrs: Active Orders 24 hr Category Date Time Status Admission Diagnosis [ADT] Stat ADT 07/25/21 07:06 Ordered Admission Status [Patient Status] [ADT] Stat ADT 07/25/21 07:06 Active Aspiration Precautions [RC] ASDIRECTED Care 07/25/21 11:17 Active Blood Glucose Check, Bedside [RC] ONETIME Care 07/25/21 06:11 Active Intake and Output [RC] QSHIFT Care 07/25/21 08:11 Active Notify Provider [RC] PRN Care 07/25/21 11:17 Active Oxygen Therapy [RC] PRN Care 07/25/21 08:11 Active Up ad Karla [RC] ASDIRECTED Care 07/25/21 08:11 Active VTE/DVT Education [RC] PER UNIT ROUTINE Care 07/25/21 08:11 Active Vital Signs [RC] Q4H Care 07/25/21 08:11 Active Regular Diet [DIET] Diet 07/25/21 Breakfast Active CBC WITH AUTO DIFF [HEME] AM Lab 07/26/21 05:11 Ordered COMPREHENSIVE METABOLIC PN,CMP [CHEM] AM Lab 07/26/21 05:11 Ordered MAGNESIUM [CHEM] AM Lab 07/26/21 05:11 Ordered Acetaminophen [TylenoL] Med 07/25/21 08:11 Active 650 mg PO Q4H PRN Citalopram [Celexa] Med 07/25/21 09:00 Active 20 mg PO DAILY Ibuprofen [Motrin] Med 07/25/21 08:11 Active 600 mg PO Q6H PRN Naproxen [Naprosyn] Med 07/25/21 09:00 Active 500 mg PO BID Ondansetron [Zofran ODT] Med 07/25/21 08:11 Active 4 mg PO Q6H PRN chlordiazePOXIDE [Librium] Med 07/27/21 12:00 Active 25 mg PO Q4H chlordiazePOXIDE [Librium] Med 07/28/21 14:00 Active 25 mg PO Q6H chlordiazePOXIDE [Librium] Med 07/25/21 12:00 Active 50 mg PO Q4H chlordiazePOXIDE [Librium] Med 07/26/21 14:00 Active 50 mg PO Q6H lisinopriL [Prinivil] Med 07/25/21 09:00 Active 20 mg PO DAILY metFORMIN [Glucophage] Med 07/25/21 09:00 Active 1,000 mg PO DAILY oxyCODONE Med 07/25/21 08:12 Active 5 mg PO BID PRN traZODone Med 07/25/21 21:00 Active 150 mg PO BEDTIME Anticoagulation Contraindications VTE [AST] Routine Oth 07/25/21 11:17 Ordered Seizure Precautions [OM.PC] Stat Oth 07/25/21 11:17 Ordered Resuscitation Status Routine Resus Stat 07/25/21 08:11 Ordered Medication Orders Acetaminophen (Acetaminophen 325 Mg Tab) 650 mg PO Q4H PRN PRN Reason: Pain (Mild 1-3)/fever Chlordiazepoxide HCl (Chlordiazepoxide 25 Mg Cap) 50 mg PO Q4H [facility]; Protocol Stop: 07/26/21 08:01 Last Admin: 07/25/21 16:16 Dose: 50 mg Documented by: Admin: 07/25/21 12:31 Dose: 50 mg Documented by: VALERIE Chlordiazepoxide HCl (Chlordiazepoxide 25 Mg Cap) 50 mg PO Q6H [facility]; Protocol Stop: 07/27/21 08:01 Chlordiazepoxide HCl (Chlordiazepoxide 25 Mg Cap) 25 mg PO Q4H [facility]; Protocol Stop: 07/28/21 08:01 Chlordiazepoxide HCl (Chlordiazepoxide 25 Mg Cap) 25 mg PO Q6H [facility]; Protocol Stop: 07/29/21 08:01 Citalopram Hydrobromide (Citalopram 20 Mg Tab) 20 mg PO DAILY [facility] Last Admin: 07/25/21 09:47 Dose: 20 mg Documented by: VALERIE Ibuprofen (Ibuprofen 600 Mg Tab) 600 mg PO Q6H PRN PRN Reason: Pain (mild 1-3) Lisinopril (Lisinopril 20 Mg Tab) 20 mg PO DAILY [facility] Last Admin: 07/25/21 09:47 Dose: 20 mg Documented by: VALERIE Metformin HCl (Metformin 500 Mg Tab) 1,000 mg PO DAILY [facility] Last Admin: 07/25/21 09:47 Dose: 1,000 mg Documented by: VALERIE Naproxen (Naproxen 500 Mg Tab) 500 mg PO BID [facility] Last Admin: 07/25/21 09:49 Dose: 500 mg Documented by: VALERIE Ondansetron HCl (Ondansetron 4 Mg Tab.Dis) 4 mg PO Q6H PRN PRN Reason: nausea, able to take PO Oxycodone HCl (Oxycodone 5 Mg Tab) 5 mg PO BID PRN PRN Reason: Pain (moderate 4-6) Last Admin: 07/25/21 09:49 Dose: 5 mg Documented by: VALERIE Trazodone HCl (Trazodone 50 Mg Tab) 150 mg PO BEDTIME [facility] Assessment/Plan Comment:: Assessment/Plan: 1. 41-year-old man requesting detox from alcohol, in anticipation of either inpatient or outpatient alcohol treatment -We will admit to inpatient, and do close monitoring using [facility] protocol -Scheduled chlordiazepoxide to help with withdrawal symptoms -We will have crisis team/psychiatry see him once he is past the danger zone for delirium tremens, to discuss future plans 2. Longstanding chronic alcohol abuse 3. Diabetes mellitus type 2 -4 times daily glucose checks with sliding scale insulin as needed 4. VTE prophylaxis: He is at low risk of VTE at this time, if he does not ambulate well over the next 24 hours, we may consider starting him on pharmacological prophylaxis.
[2021-07-25] MEDS ORDERED: traZODone 50 MG Tab PO SCH (21:00)
[2021-07-26] MEDS: chlordiazePOXIDE 25 MG Cap PO SCH ×3 (00:21→15:58)
[2021-07-26 07:01] LABS: ANION GAP 11.1 mEq/L (7-13); CHLORIDE,CL 97 mmol/L (98-107); SODIUM,NA 133 mmol/L (136-145)
[2021-07-26 08:30] VITALS: BP 127/76; PULSE 84
--- NOTE | 2021-07-26 08:57 | PCM.DCSUM1 ---
Discharge Summary - Hospital Course Free Text/Narrative:: Tian is a 41-year-old man who was admitted yesterday after he requested inpatient detox from alcohol. He has a longstanding history of chronic alcohol abuse. He states that this past year, he was sober for approximately 7 months, and then relapsed. This morning, hospital day #1, he requested discharge home. He states that he had "things to attend to". He had not really been showing any signs of acute alcohol withdrawal. As he had presented here voluntarily, his request to be discharged was reasonable and appropriate. - Discharge Data Discharge Date: 07/26/21 Discharge Disposition: Home, Self-Care 01 Condition: Good - Referral to Home Health Primary Care Physician: PCP None - Discharge Diagnosis/Problem(s) (1) Alcohol abuse SNOMED Code(s): 70254157 ICD Code: F10.10 - ALCOHOL ABUSE, UNCOMPLICATED Status: Acute (2) Alcohol withdrawal syndrome SNOMED Code(s): 948155802 ICD Code: F10.239 - ALCOHOL DEPENDENCE WITH WITHDRAWAL, UNSPECIFIED Status: Acute - Discharge Plan *PRESCRIPTION DRUG MONITORING PROGRAM REVIEWED*: Not Applicable *COPY OF PRESCRIPTION DRUG MONITORING REPORT IN PATIENT SEMAJ: Not Applicable Home Medications: Home Meds metFORMIN HCl [Metformin HCl] 1,000 mg PO DAILY 08/08/18 [History] Acetaminophen 500 mg PO Q6HR PRN 09/22/20 [History] Alogliptin Benzoate [Alogliptin] 25 mg PO DAILY 09/22/20 [History] Citalopram [Citalopram HBr] 20 mg PO DAILY 09/22/20 [History] Naproxen 500 mg PO BID 09/22/20 [History] oxyCODONE 5 mg PO BID PRN 09/22/20 [History] traZODone HCl [Trazodone HCl] 150 mg PO BEDTIME 09/22/20 [History] lisinopriL [Lisinopril] 20 mg PO DAILY 07/25/21 [History] Patient Handouts: Alcohol Abuse and Nutrition Referrals: PCP,None [Primary Care Provider] - - Discharge Summary/Plan Comment DC Time >30 min.: No Total # of Minutes for Discharge Time: 10 Discharge Summary/Plan Comment: Discharge diagnoses: 1. 41-year-old man with history of chronic alcohol abuse syndrome, with multiple episodes of sobriety and relapse 2. Request for detoxification from alcohol, now canceled 3. Type 2 diabetes mellitus, with renal complication Discharge plan: 1. He is discharged home this morning. I advised him strongly, that if he continues to want to detox from alcohol, that he seek help in doing so. With his longstanding use of alcohol, doing this on his own would be dangerous - General Info Date of Service: 07/26/21 Admission Dx/Problem (Free Text: Admission Diagnosis/Problem Admission Diagnosis/Problem Alcohol withdrawal syndrome Subjective Update: See above summary - Patient Data Vitals - Most Recent: Last Vital Signs Temp 96.7 F L 07/26/21 08:00 Pulse 84 07/26/21 08:00 Resp 18 07/26/21 08:00 BP 127/76 07/26/21 08:00 Pulse Ox 100 07/26/21 08:00 Weight - Most Recent: 203 lb 8 oz I&O - Last 24 hours: Intake & Output 07/25/21 07/26/21 07/26/21 22:59 06:59 14:59 Intake Total 500 350 Balance 500 350 Lab Results - Last 24 hrs: Laboratory Results - last 24 hr 07/26/21 07/26/21 07/26/21 Range/Units 06:35 06:35 07:57 WBC 5.1 (5.0-10.0) 10^3/uL RBC 4.32 L (4.6-6.2) 10^6/uL Hgb 13.4 L (14.0-18.0) g/dL Hct 39.0 L (40.0-54.0) % MCV 90.3 (80-100) fL MCH 31.0 (27.0-34.0) pg MCHC 34.4 (33.0-35.0) g/dL Plt Count 176 (150-450) 10^3/uL Neut % (Auto) 59.3 (42.2-75.2) % Lymph % (Auto) 27.0 (20.5-50.1) % [place] % (Auto) 11.7 H (2-8) % Eos % (Auto) 1.4 (1.0-3.0) % Baso % (Auto) 0.6 (0.0-1.0) % Sodium 133 L (136-145) mmol/L Potassium 4.1 (3.5-5.1) mmol/L Chloride 97 L (98-107) mmol/L Carbon Dioxide 29 (21-32) mmol/L Anion Gap 11.1 (7-13) mEq/L BUN 7 (7-18) mg/dL Creatinine 0.77 (0.70-1.30) mg/dL Est Cr Clr Drug Dosing 123.70 mL/min Estimated GFR (MDRD) > 60 BUN/Creatinine Ratio 9.1 (No establ ref range) Glucose 435 H* (70-99) mg/dL POC Glucose 322 H (70-99) mg/dL Calcium 8.1 L (8.5-10.1) mg/dL Magnesium 1.6 L (1.8-2.4) mg/dL Total Bilirubin 0.9 (0.2-1.0) mg/dL AST 158 H (15-37) U/L ALT 168 H (16-63) U/L Alkaline Phosphatase 260 H (46-116) U/L Total Protein 8.3 H (6.4-8.2) g/dL Albumin 2.9 L (3.4-5.0) g/dL Globulin 5.4 Albumin/Globulin Ratio 0.54 Med Orders - Current: Current Medications Acetaminophen (Acetaminophen 325 Mg Tab) 650 mg PO Q4H PRN PRN Reason: Pain (Mild 1-3)/fever Chlordiazepoxide HCl (Chlordiazepoxide 25 Mg Cap) 50 mg PO Q6H [facility]; Protocol Stop: 07/27/21 08:01 Chlordiazepoxide HCl (Chlordiazepoxide 25 Mg Cap) 25 mg PO Q4H [facility]; Protocol Stop: 07/28/21 08:01 Chlordiazepoxide HCl (Chlordiazepoxide 25 Mg Cap) 25 mg PO Q6H [facility]; Protocol Stop: 07/29/21 08:01 Citalopram Hydrobromide (Citalopram 20 Mg Tab) 20 mg PO DAILY [facility] Last Admin: 07/25/21 09:47 Dose: 20 mg Documented by: Ibuprofen (Ibuprofen 600 Mg Tab) 600 mg PO Q6H PRN PRN Reason: Pain (mild 1-3) Lisinopril (Lisinopril 20 Mg Tab) 20 mg PO DAILY [facility] Last Admin: 07/25/21 09:47 Dose: 20 mg Documented by: Metformin HCl (Metformin 500 Mg Tab) 1,000 mg PO DAILY [facility] Last Admin: 07/25/21 09:47 Dose: 1,000 mg Documented by: Naproxen (Naproxen 500 Mg Tab) 500 mg PO BID [facility] Last Admin: 07/25/21 21:01 Dose: 500 mg Documented by: Ondansetron HCl (Ondansetron 4 Mg Tab.Dis) 4 mg PO Q6H PRN PRN Reason: nausea, able to take PO Oxycodone HCl (Oxycodone 5 Mg Tab) 5 mg PO BID PRN PRN Reason: Pain (moderate 4-6) Last Admin: 07/25/21 09:49 Dose: 5 mg Documented by: Trazodone HCl (Trazodone 50 Mg Tab) 150 mg PO BEDTIME [facility] Last Admin: 07/25/21 21:02 Dose: 150 mg Documented by: Discontinued Medications Bacitracin (Bacitracin Oint 1 Gm U/D Packet) 1 dose TOP ONETIME ONE Stop: 07/25/21 03:37 Last Admin: 07/25/21 03:47 Dose: 1 dose Documented by: Chlordiazepoxide HCl (Chlordiazepoxide 25 Mg Cap) 0 mg PO ASDIRECTED [facility] Chlordiazepoxide HCl (Chlordiazepoxide 25 Mg Cap) 0 mg PO QID [facility]; Protocol Chlordiazepoxide HCl (Chlordiazepoxide 25 Mg Cap) 50 mg PO Q4H [facility]; Protocol Stop: 07/26/21 08:01 Last Admin: 07/26/21 04:23 Dose: 50 mg Documented by: Multivitamins/Minerals 10 ml/Folic Acid 1 mg/ Thiamine HCl 100 mg/ Lactated Rin darlene's 1,011.2 mls @ 999 mls/hr IV ONETIME ONE Stop: 07/25/21 03:56 Last Admin: 07/25/21 03:07 Dose: 999 mls/hr Documented by: Potassium Chloride 20 meq/ (Premix) 100 mls @ 50 mls/hr IV ONETIME ONE Stop: 07/25/21 05:49 Last Admin: 07/25/21 03:54 Dose: 50 mls/hr Documented by: Sodium Chloride (Normal Saline) 1,000 mls @ 100 mls/hr IV .BOLUS ONE Stop: 07/25/21 13:51 Last Admin: 07/25/21 03:54 Dose: 100 mls/hr Documented by: Lorazepam (Lorazepam 2 Mg/Ml Sdv) 2 mg IVPUSH ONETIME ONE Stop: 07/25/21 02:56 Last Admin: 07/25/21 03:08 Dose: 2 mg Documented by: Lorazepam (Lorazepam 2 Mg/Ml Sdv) 1 mg IVPUSH ONETIME ONE Stop: 07/25/21 04:06 Last Admin: 07/25/21 04:14 Dose: 1 mg Documented by: Lorazepam (Lorazepam 2 Mg/Ml Sdv) 1 mg IVPUSH ONETIME ONE Stop: 07/25/21 06:12 Last Admin: 07/25/21 06:20 Dose: 1 mg Documented by: Metoprolol Tartrate (Metoprolol Tartrate 5 Mg/5 Ml Sdv) 2.5 mg IVPUSH ONETIME ONE Stop: 07/25/21 04:08 Last Admin: 07/25/21 04:14 Dose: 2.5 mg Documented by: Metoprolol Tartrate (Metoprolol Tartrate 5 Mg/5 Ml Sdv) 2.5 mg IVPUSH ONETIME ONE Stop: 07/25/21 06:12 Last Admin: 07/25/21 06:20 Dose: 2.5 mg Documented by: Ondansetron HCl (Ondansetron 4 Mg/2 Ml Sdv) 4 mg IVPUSH ONETIME ONE Stop: 07/25/21 02:56 Last Admin: 07/25/21 03:08 Dose: 4 mg Documented by: Pantoprazole Sodium (Pantoprazole 40 Mg Vial) 80 mg IVPUSH .BOLUS ONE Stop: 07/25/21 03:36 Last Admin: 07/25/21 03:47 Dose: 80 mg Documented by: - Exam Physical Findings Comments:: Discharge exam: Trav is a 41-year-old man in no acute distress Oropharynx is clear, mucous membranes are moist Neck: Supple, no lymphadenopathy Heart: Regular rate and rhythm, no murmurs Lungs: Clear to auscultation throughout *Q Meaningful Use (DIS) - VTE *Q VTE Anticoagulation Contraindications: Treatment Not Tolerated
[2021-07-26] MEDS ORDERED: chlordiazePOXIDE 25 MG Cap PO SCH (14:00)
[2021-07-26] MEDS: Citalopram 20 MG Tab PO SCH (15:59)
[2021-07-26] MEDS: metFORMIN 500 MG Tab PO SCH (15:59)
[2021-07-26] MEDS: Lisinopril 20 MG Tab PO SCH (15:59)
[2021-07-26] MEDS: Naproxen 500 MG Tab PO SCH (15:59)
[2021-07-27] MEDS ORDERED: chlordiazePOXIDE 25 MG Cap PO SCH (12:00)
[2021-07-28] MEDS ORDERED: chlordiazePOXIDE 25 MG Cap PO SCH (14:00)
== END 2021-07-26 09:05 | disposition home or self-care (01) | DRG 897 ==
LOC: DL.ED 02:44 → DL.MS 07:32
PROVIDERS: ADMIT Family Medicine; ATTEND Family Medicine
DX: F10.231 Alcohol dependence with withdrawal delirium (principal); I10 Essential (primary) hypertension; K21.9 Gastro-esophageal reflux disease without esophagitis; J45.909 Unspecified asthma, uncomplicated; F32.A Depression, unspecified; E11.9 Type 2 diabetes mellitus without complications; E87.6 Hypokalemia; E11.65 Type 2 diabetes mellitus with hyperglycemia; Z20.822 Contact with and (suspected) exposure to COVID-19; F15.90 Other stimulant use, unspecified, uncomplicated; Y90.0 Blood alcohol level of less than 20 mg/100 ml; Z91.018 Allergy to other foods; Z79.899 Other long term (current) drug therapy; I25.2 Old myocardial infarction
CPT/HCPCS: 36415; 80053; 80305-QW; 80307; 81001; 82150; 82947; 83690; 83735; 85025; 96365; 96366; 96367; 96375; 96376; 99285-25; A9270-GY; C9113; J2060; J2405; J3411; J3480; J3490; J7030; J7120; U0002

== ENCOUNTER 2021-09-22 12:18 | Emergency (ER) | payer MEDICAID ==
[2021-09-22 12:38] VITALS: PULSE 92
[2021-09-22 13:06] LABS: AMPHETAMINES,URINE NEGATIVE (NEGATIVE); BARBITURATES,URINE NEGATIVE (NEGATIVE); BENZODIAZEPINE,URINE NEGATIVE (NEGATIVE); MDMA (ECSTASY), URINE NEGATIVE (NEGATIVE); METHADONE,URINE NEGATIVE (NEGATIVE); METHAMPHETAMINES,URINE NEGATIVE (NEGATIVE); OPIATES,URINE NEGATIVE (NEGATIVE); OXYCODONE,URINE NEGATIVE (NEGATIVE); PHENCYCLIDINE,URINE NEGATIVE (NEGATIVE); TCA,URINE NEGATIVE (NEGATIVE)
[2021-09-22] MEDS ORDERED: MVI, Adult with Vitamin K 10 ML, Folic Acid 1 MG, Thiamine 100 MG in Lactated Ringers 1... IV ONE ×4 (13:13)
--- NOTE | 2021-09-22 13:18 | EDM.PDOC ---
ED HPI GENERAL MEDICAL PROBLEM - General Chief Complaint: Drug or Alcohol Abuse Stated Complaint: ALCOHOL WITHDRAWAL Time Seen by Provider: 09/22/21 13:00 Source of Information: Reports: Patient History Limitations: Reports: No Limitations - History of Present Illness INITIAL COMMENTS - FREE TEXT/NARRATIVE: This 41 yo male patient reports to the ED due to alcohol withdrawal. The patient reports he has had a history of going through DT and was admitted to our hospital for them. The patient reports he has been drinking at least 2 cans of beer per day for the past couple of months. The patient reports he was trying to quit, but has notice shaking and his body not feeling right. The patient reports his current symptoms are similar to previous episodes of withdrawals. Onset: Today Duration: Constant Location: Reports: Generalized Quality: Reports: Other Severity: Moderate Improves with: Reports: None Worsens with: Reports: None Context: Reports: Other Associated Symptoms: Reports: No Other Symptoms Abdominal Pain Score (Numeric/FACES): 5 - Related Data Allergies Allergy/AdvReac Type Severity Reaction Status Date / Time pineapple Allergy Anaphylactic Verified 09/22/21 12:34 Shock Home Meds: Home Meds metFORMIN HCl [Metformin HCl] 1,000 mg PO DAILY 08/08/18 [History] Acetaminophen 500 mg PO Q6HR PRN 09/22/20 [History] Alogliptin Benzoate [Alogliptin] 25 mg PO DAILY 09/22/20 [History] Citalopram [Citalopram HBr] 20 mg PO DAILY 09/22/20 [History] Naproxen 500 mg PO BID 09/22/20 [History] oxyCODONE 5 mg PO BID PRN 09/22/20 [History] traZODone HCl [Trazodone HCl] 150 mg PO BEDTIME 09/22/20 [History] lisinopriL [Lisinopril] 20 mg PO DAILY 07/25/21 [History] Past Medical History HEENT History: Reports: None Cardiovascular History: Reports: Hypertension, SD Respiratory History: Reports: Asthma Gastrointestinal History: Reports: GERD, Jaundice, Pancreatitis Genitourinary History: Reports: None Musculoskeletal History: Reports: Fracture Other Musculoskeletal History: left jaw Neurological History: Reports: None Psychiatric History: Reports: Addiction, Depression Other Psychiatric History: insomnia Endocrine/Metabolic History: Reports: Diabetes, Type II Hematologic History: Reports: None Immunologic History: Reports: None Oncologic (Cancer) History: Reports: None Dermatologic History: Reports: None - Infectious Disease History Infectious Disease History: Reports: Chicken Pox - Past Surgical History Head Surgeries/Procedures: Reports: None HEENT Surgical History: Reports: Oral Surgery Other HEENT Surgeries/Procedures: jaw wired shut Musculoskeletal Surgical History: Reports: Other (See Below) Other Musculoskeletal Surgeries/Procedures:: right lower leg surgery Social & Family History - Family History Family Medical History: No Pertinent Family History - Tobacco Use Tobacco Use Status *Q: Current Every Day Tobacco User Years of Tobacco use: 5 Packs/Tins Daily: 1 - Caffeine Use Caffeine Use: Reports: Coffee - Alcohol Use Days Per Week of Alcohol Use: 7 Number of Drinks Per Day: 3 Total Drinks Per Week: 21 - Recreational Drug Use Recreational Drug Use: No - Living Situation & Occupation Living situation: Reports: with Family Occupation: Unemployed ED ROS GENERAL - Review of Systems Review Of Systems: Comprehensive ROS is negative, except as noted in HPI. ED EXAM, GENERAL - Physical Exam Exam: See Below Exam Limited By: No Limitations General Appearance: Alert, WD/WN, Moderate Distress Eye Exam: Bilateral Eye: EOMI, Normal Inspection, PERRL Ears: Normal External Exam, Normal Canal, Hearing Grossly Normal, Normal TMs Nose: Normal Inspection, Normal Mucosa, No Blood Throat/Mouth: Normal Inspection, Normal Lips, Normal Teeth, Normal Gums, Normal Oropharynx, Normal Voice, No Airway Compromise Head: Atraumatic, Normocephalic Neck: Normal Inspection, Supple, Non-Tender, Full Range of Motion Respiratory/Chest: No Respiratory Distress, Lungs Clear, Normal Breath Sounds, No Accessory Muscle Use, Chest Non-Tender Cardiovascular: Normal Peripheral Pulses, Regular Rate, Rhythm, No Edema, No Gallop, No JVD, No Murmur, No Rub GI/Abdominal: Normal Bowel Sounds, Soft, Non-Tender, No Organomegaly, No Distention, No Abnormal Bruit, No Mass (Male) Exam: Deferred Rectal (Males) Exam: Deferred Back Exam: Normal Inspection, Full Range of Motion, NT Extremities: Normal Inspection, Normal Range of Motion, Non-Tender, Normal Capillary Refill, No Pedal Edema Neurological: Alert, Oriented, CN II-XII Intact, Normal Cognition, Normal Gait, Normal Reflexes, No Motor/Sensory Deficits Psychiatric: Normal Affect, Normal Mood Skin Exam: Warm, Dry, Intact, Normal Color, No Rash Lymphatic: No Adenopathy #1 Interpretation EKG Date: 09/22/21 Time: 13:11 Rhythm: NSR Rate (Beats/Min): 93 [place]: Normal P-Wave: Present QRS: Normal ST-T: Normal QT: Normal Comparison: NA - No Prior EKG Course - Vital Signs Last Recorded V/S: Last Vital Signs Temp 98.4 F 09/22/21 12:36 Pulse 92 09/22/21 12:36 Resp 20 09/22/21 12:36 BP 164/104 H 09/22/21 14:00 Pulse Ox 97 09/22/21 12:36 - Orders/Labs/Meds Orders: Active Orders 24 hr Category Date Time Status ACETAMINOPHEN [CHEM] Stat Lab 09/22/21 12:30 Results COMPREHENSIVE METABOLIC PN,CMP [CHEM] Stat Lab 09/22/21 12:30 Results ETHANOL BLOOD MEDICAL [CHEM] Stat Lab 09/22/21 12:30 Results MAGNESIUM [CHEM] Stat Lab 09/22/21 12:30 Results PTT,PARTIAL THROMBOPLSTIN TIME [COAG] Stat Lab 09/22/21 13:50 Received TROPONIN I HIGH SENSITIVITY [CHEM] Stat Lab 09/22/21 12:30 Results Heparin Sodium/0.45% NaCl [Heparin 25,000 Units in 1/2 Med 09/22/21 14:00 Active NS 500 ML] 25,000 units in 500 ml IV TITRATE Medication Orders Heparin Sodium/Sodium Chloride (Heparin 25,000 Units In 1/2 Ns 500 Ml) 25,000 units in 500 mls @ 24.004 mls/hr IV TITRATE CARMEN Last Infusion: 09/22/21 15:04 Dose: 11.66 units/kg/hr, 20 mls/hr Documented by: VALERIE Cosigned by: ERIC Admin: 09/22/21 13:59 Dose: 14 units/kg/hr, 24.004 mls/hr Documented by: VENU Cosigned by: RENALDO Labs: Laboratory Tests 09/22/21 09/22/21 09/22/21 Range/Units 12:27 12:27 12:30 WBC 7.3 (5.0-10.0) 10^3/uL RBC 4.50 L (4.6-6.2) 10^6/uL Hgb 13.7 L (14.0-18.0) g/dL Hct 40.2 (40.0-54.0) % MCV 89.3 (80-100) fL MCH 30.4 (27.0-34.0) pg MCHC 34.1 (33.0-35.0) g/dL Plt Count 124 L (150-450) 10^3/uL Neut % (Auto) 52.4 (42.2-75.2) % Lymph % (Auto) 33.0 (20.5-50.1) % [place] % (Auto) 13.5 H (2-8) % Eos % (Auto) 0.4 L (1.0-3.0) % Baso % (Auto) 0.7 (0.0-1.0) % PT (9.0-12.0) SEC INR (0.9-1.2) Sodium (136-145) mmol/L Potassium (3.5-5.1) mmol/L Chloride (98-107) mmol/L Carbon Dioxide (21-32) mmol/L Anion Gap (7-13) mEq/L BUN (7-18) mg/dL Creatinine (0.70-1.30) mg/dL Est Cr Clr Drug Dosing mL/min Estimated GFR (MDRD) BUN/Creatinine Ratio (No establ ref range) Glucose (70-99) mg/dL Calcium (8.5-10.1) mg/dL Magnesium (1.8-2.4) mg/dL Total Bilirubin (0.2-1.0) mg/dL AST (15-37) U/L Alkaline Phosphatase (46-116) U/L Troponin I High Sens (<=76) pg/mL Total Protein (6.4-8.2) g/dL Albumin (3.4-5.0) g/dL Globulin Albumin/Globulin Ratio Urine Color Yellow (YELLOW) Urine Appearance Clear (CLEAR) Urine pH 6.0 (5.0-9.0) Ur Specific [place] <= 1.005 (1.005-1.030) Urine Protein Negative (NEGATIVE) Urine Glucose (UA) 500 H (NEGATIVE) Urine Ketones Negative (NEGATIVE) Urine Occult Blood Trace-intact H (NEGATIVE) Urine Nitrite Negative (NEGATIVE) Urine Bilirubin Negative (NEGATIVE) Urine Urobilinogen 0.2 (0.2-1.0) mg/dL Ur Leukocyte Esterase Negative (NEGATIVE) Urine RBC 0-5 (0-5) /HPF Urine WBC Not seen (0-5/HPF) /HPF Ur Epithelial Cells Not seen (NOT SEEN) /HPF Urine Bacteria Not seen (0-FEW/HPF) /HPF Salicylates (2.8-20(Therapeutic)) mg/dL Urine Opiates Screen Negative (NEGATIVE) Ur Oxycodone Screen Negative (NEGATIVE) Urine Methadone Screen Negative (NEGATIVE) Acetaminophen (10-30 (Therapeutic)) ug/mL Ur Barbiturates Screen Negative (NEGATIVE) U Tricyclic Antidepress Negative (NEGATIVE) Ur Phencyclidine Scrn Negative (NEGATIVE) Ur Amphetamine Screen Negative (NEGATIVE) U Methamphetamines Scrn Negative (NEGATIVE) Urine MDMA Screen Negative (NEGATIVE) U Benzodiazepines Scrn Negative (NEGATIVE) Urine Cocaine Screen Negative (NEGATIVE) U Marijuana (THC) Screen Negative (NEGATIVE) Ethyl Alcohol (0) mg/dL Influenza Type A RNA (NEGATIVE) Influenza Type B RNA (NEGATIVE) SARS-CoV-2 RNA (IRENA) (NEGATIVE) 09/22/21 09/22/21 09/22/21 Range/Units 12:30 12:30 12:34 WBC (5.0-10.0) 10^3/uL RBC (4.6-6.2) 10^6/uL Hgb (14.0-18.0) g/dL Hct (40.0-54.0) % MCV (80-100) fL MCH (27.0-34.0) pg MCHC (33.0-35.0) g/dL Plt Count (150-450) 10^3/uL Neut % (Auto) (42.2-75.2) % Lymph % (Auto) (20.5-50.1) % [place] % (Auto) (2-8) % Eos % (Auto) (1.0-3.0) % Baso % (Auto) (0.0-1.0) % PT (9.0-12.0) SEC INR (0.9-1.2) Sodium 134 L (136-145) mmol/L Potassium 4.2 (3.5-5.1) mmol/L Chloride 94 L (98-107) mmol/L Carbon Dioxide 28 (21-32) mmol/L Anion Gap 16.2 H (7-13) mEq/L BUN 8 (7-18) mg/dL Creatinine 0.82 (0.70-1.30) mg/dL Est Cr Clr Drug Dosing 116.16 mL/min Estimated GFR (MDRD) > 60 BUN/Creatinine Ratio 9.8 (No establ ref range) Glucose 426 H* (70-99) mg/dL Calcium 7.9 L (8.5-10.1) mg/dL Magnesium 1.4 L (1.8-2.4) mg/dL Total Bilirubin 0.5 (0.2-1.0) mg/dL AST 233 H (15-37) U/L Alkaline Phosphatase 326 H (46-116) U/L Troponin I High Sens 157 H* (<=76) pg/mL Total Protein 8.9 H (6.4-8.2) g/dL Albumin 3.0 L (3.4-5.0) g/dL Globulin 5.9 Albumin/Globulin Ratio 0.51 Urine Color (YELLOW) Urine Appearance (CLEAR) Urine pH (5.0-9.0) Ur Specific [place] (1.005-1.030) Urine Protein (NEGATIVE) Urine Glucose (UA) (NEGATIVE) Urine Ketones (NEGATIVE) Urine Occult Blood (NEGATIVE) Urine Nitrite (NEGATIVE) Urine Bilirubin (NEGATIVE) Urine Urobilinogen (0.2-1.0) mg/dL Ur Leukocyte Esterase (NEGATIVE) Urine RBC (0-5) /HPF Urine WBC (0-5/HPF) /HPF Ur Epithelial Cells (NOT SEEN) /HPF Urine Bacteria (0-FEW/HPF) /HPF Salicylates < 2.8 L (2.8-20(Therapeutic)) mg/dL Urine Opiates Screen (NEGATIVE) Ur Oxycodone Screen (NEGATIVE) Urine Methadone Screen (NEGATIVE) Acetaminophen 0 L (10-30 (Therapeutic)) ug/mL Ur Barbiturates Screen (NEGATIVE) U Tricyclic Antidepress (NEGATIVE) Ur Phencyclidine Scrn (NEGATIVE) Ur Amphetamine Screen (NEGATIVE) U Methamphetamines Scrn (NEGATIVE) Urine MDMA Screen (NEGATIVE) U Benzodiazepines Scrn (NEGATIVE) Urine Cocaine Screen (NEGATIVE) U Marijuana (THC) Screen (NEGATIVE) Ethyl Alcohol 315 (0) mg/dL Influenza Type A RNA Negative (NEGATIVE) Influenza Type B RNA Negative (NEGATIVE) SARS-CoV-2 RNA (IRENA) Negative (NEGATIVE) 09/22/21 09/22/21 Range/Units 13:50 14:35 WBC (5.0-10.0) 10^3/uL RBC (4.6-6.2) 10^6/uL Hgb (14.0-18.0) g/dL Hct (40.0-54.0) % MCV (80-100) fL MCH (27.0-34.0) pg MCHC (33.0-35.0) g/dL Plt Count (150-450) 10^3/uL Neut % (Auto) (42.2-75.2) % Lymph % (Auto) (20.5-50.1) % [place] % (Auto) (2-8) % Eos % (Auto) (1.0-3.0) % Baso % (Auto) (0.0-1.0) % PT 11.5 (9.0-12.0) SEC INR 1.1 (0.9-1.2) Sodium (136-145) mmol/L Potassium (3.5-5.1) mmol/L Chloride (98-107) mmol/L Carbon Dioxide (21-32) mmol/L Anion Gap (7-13) mEq/L BUN (7-18) mg/dL Creatinine (0.70-1.30) mg/dL Est Cr Clr Drug Dosing mL/min Estimated GFR (MDRD) BUN/Creatinine Ratio (No establ ref range) Glucose (70-99) mg/dL Calcium (8.5-10.1) mg/dL Magnesium (1.8-2.4) mg/dL Total Bilirubin (0.2-1.0) mg/dL AST (15-37) U/L Alkaline Phosphatase (46-116) U/L Troponin I High Sens 147 H* (<=76) pg/mL Total Protein (6.4-8.2) g/dL Albumin (3.4-5.0) g/dL Globulin Albumin/Globulin Ratio Urine Color (YELLOW) Urine Appearance (CLEAR) Urine pH (5.0-9.0) Ur Specific [place] (1.005-1.030) Urine Protein (NEGATIVE) Urine Glucose (UA) (NEGATIVE) Urine Ketones (NEGATIVE) Urine Occult Blood (NEGATIVE) Urine Nitrite (NEGATIVE) Urine Bilirubin (NEGATIVE) Urine Urobilinogen (0.2-1.0) mg/dL Ur Leukocyte Esterase (NEGATIVE) Urine RBC (0-5) /HPF Urine WBC (0-5/HPF) /HPF Ur Epithelial Cells (NOT SEEN) /HPF Urine Bacteria (0-FEW/HPF) /HPF Salicylates (2.8-20(Therapeutic)) mg/dL Urine Opiates Screen (NEGATIVE) Ur Oxycodone Screen (NEGATIVE) Urine Methadone Screen (NEGATIVE) Acetaminophen (10-30 (Therapeutic)) ug/mL Ur Barbiturates Screen (NEGATIVE) U Tricyclic Antidepress (NEGATIVE) Ur Phencyclidine Scrn (NEGATIVE) Ur Amphetamine Screen (NEGATIVE) U Methamphetamines Scrn (NEGATIVE) Urine MDMA Screen (NEGATIVE) U Benzodiazepines Scrn (NEGATIVE) Urine Cocaine Screen (NEGATIVE) U Marijuana (THC) Screen (NEGATIVE) Ethyl Alcohol (0) mg/dL Influenza Type A RNA (NEGATIVE) Influenza Type B RNA (NEGATIVE) SARS-CoV-2 RNA (IRENA) (NEGATIVE) Meds: Medications Generic Name Dose Route Start Last Admin Trade Name Freq PRN Reason Stop Dose Admin Heparin Sodium/Sodium Chloride 25,000 units in 500 mls @ 24.004 mls/hr 09/22/21 14:00 09/22/21 15:04 Heparin 25,000 Units In 1/2 Ns 500 Ml IV 11.66 units/kg/hr TITRATE CARMEN 20 mls/hr Infusion 14 UNITS/KG/HR Discontinued Medications Generic Name Dose Route Start Last Admin Trade Name Gaganq PRN Reason Stop Dose Admin Aspirin 324 mg 09/22/21 13:39 09/22/21 13:59 Aspirin 81 Mg Tab.Chew PO 09/22/21 13:40 324 mg ONETIME ONE Administration Heparin Sodium (Porcine) 4,000 units 09/22/21 13:46 09/22/21 13:59 Heparin Sodium 5,000 Units/Ml Vial IVPUSH 09/22/21 13:47 4,000 units .BOLUS ONE Administration Multivitamins/Minerals 10 ml/ 1,011.2 mls @ 999 mls/hr 09/22/21 13:13 09/22/21 13:33 Folic Acid 1 mg/ Thiamine HCl IV 09/22/21 14:13 999 mls/hr 100 mg/ Lactated Ringer's ONETIME ONE Administration Lorazepam 0.5 mg 09/22/21 14:07 09/22/21 14:17 Lorazepam 0.5 Mg Tab PO 09/22/21 14:08 0.5 mg ONETIME ONE Administration Nitroglycerin 0.4 mg 09/22/21 13:42 09/22/21 14:00 Nitroglycerin 0.4 Mg Tab.Sl SL 09/22/21 13:43 0.4 mg ONETIME ONE Administration - Re-Assessments/Exams Free Text/Narrative Re-Assessment/Exam: 09/22/21 15:40 Reassessment revealed that patient has been having left sided chest pain for 2 days. Departure - Departure Time of Disposition: 14:10 Disposition: DC/Tfer to Acute Hospital 02 Condition: Fair Clinical Impression: NSTEMI (non-ST elevated myocardial infarction), Alcohol use disorder - Discharge Information *PRESCRIPTION DRUG MONITORING PROGRAM REVIEWED*: Not Applicable *COPY OF PRESCRIPTION DRUG MONITORING REPORT IN PATIENT SEMAJ: Not Applicable Forms: Interfacility Transfer EMTALA Care Plan Goals: Discussed the patient's history, examination, lab results, x-ray results and treatments with Dr. Balbuena (Hospitalist with [facility] in [place]). Dr. Balbuena accepted the patient for continued evaluation and management. There will be a delay in actual acceptance of the patient due to a bed shortage at [facility]. The patient will be transported by [facility]. Sepsis Event Note (ED) - Evaluation Sepsis Screening Result: No Definite Risk - Focused Exam Vital Signs: Vital Signs Temp Pulse Resp BP BP Pulse Ox 09/22/21 14:00 164/104 H 09/22/21 12:36 98.4 F 92 20 167/106 H 97 - My Orders Last 24 Hours: My Active Orders 09/22/21 12:30 ACETAMINOPHEN [CHEM] Stat COMPREHENSIVE METABOLIC PN,CMP [CHEM] Stat ETHANOL BLOOD MEDICAL [CHEM] Stat MAGNESIUM [CHEM] Stat TROPONIN I HIGH SENSITIVITY [CHEM] Stat 09/22/21 13:50 PTT,PARTIAL THROMBOPLSTIN TIME [COAG] Stat 09/22/21 14:00 Heparin Sodium/0.45% NaCl [Heparin 25,000 Units in 1/2 NS 500 ML] 25,000 units in 500 ml IV TITRATE - Assessment/Plan Last 24 Hours: My Active Orders 09/22/21 12:30 ACETAMINOPHEN [CHEM] Stat COMPREHENSIVE METABOLIC PN,CMP [CHEM] Stat ETHANOL BLOOD MEDICAL [CHEM] Stat MAGNESIUM [CHEM] Stat TROPONIN I HIGH SENSITIVITY [CHEM] Stat 09/22/21 13:50 PTT,PARTIAL THROMBOPLSTIN TIME [COAG] Stat 09/22/21 14:00 Heparin Sodium/0.45% NaCl [Heparin 25,000 Units in 1/2 NS 500 ML] 25,000 units in 500 ml IV TITRATE
[2021-09-22 13:26] LABS: ANION GAP 16.2 mEq/L (7-13); CHLORIDE,CL 94 mmol/L (98-107); SODIUM,NA 134 mmol/L (136-145)
[2021-09-22 13:35] LABS: CORONAVIRUS COVID-19 NAA NEGATIVE (NEGATIVE)
[2021-09-22 13:36] LABS: ACETAMINOPHEN 0 ug/mL (10-30 (Therapeutic))
[2021-09-22] MEDS ORDERED: Aspirin 81 MG Tab.Chew PO ONE (13:39)
[2021-09-22] MEDS ORDERED: Nitroglycerin 0.4 MG Tab.SL SL ONE (13:42)
[2021-09-22] MEDS ORDERED: Heparin Sodium 5,000 Units/ML Vial IVPUSH ONE (13:46)
[2021-09-22] MEDS ORDERED: Heparin Sodium/0.45% NaCl 25,000 UNITS/500 ML BAG IV SCH (14:00)
[2021-09-22 14:03] VITALS: BP 164/104
[2021-09-22] MEDS ORDERED: LORazepam 0.5 MG Tab PO ONE (14:07)
--- NOTE | 2021-09-22 14:31 | CR ---
EXAMINATION: Chest 1V Frontal SEX: Male AGE: 41 years CLINICAL HISTORY: 41-year-old male with chest pain. Comparison CXR 09 December 2019. INTERPRETATION: No acute new cardiopulmonary abnormality. 1. Chronic mild generalized shaggy accentuation of bronchovascular markings. No peribronchial "cuffing" or air trapping. 2. No new lung mass or hilar/mediastinal lymphadenopathy. Normal midline tracheal bronchial airway. 3. No alveolar consolidation (infiltrate/atelectasis), air bronchograms, or peripheral "groundglass" interstitial lung densities. 4. Normal cardiac silhouette (size and configuration). External radiation monitor leads. 5. No pulmonary vascular congestion, cephalization of flow, alveolar edema or dependent new pleural fluid accumulation i.e. no pleural effusions. 6. No pneumothorax or pneumomediastinum. No free subdiaphragmatic air. CONCLUSION:
== END 2021-09-22 15:55 ==
LOC: DL.ED 12:18
DX: I21.4 Non-ST elevation (NSTEMI) myocardial infarction (principal); F10.20 Alcohol dependence, uncomplicated; I10 Essential (primary) hypertension; I25.2 Old myocardial infarction; J45.909 Unspecified asthma, uncomplicated; E11.9 Type 2 diabetes mellitus without complications; Z91.018 Allergy to other foods; Z79.84 Long term (current) use of oral hypoglycemic drugs; Z72.0 Tobacco use
CPT/HCPCS: 0240U; 36415; 71045; 80053; 80143; 80179; 80305; 80307; 81001; 83735; 84484; 85025; 85610; 85730; 93005; 96365; 96367; 99285; A9270; J1644; J3411; J7120; J3490

== ENCOUNTER 2021-09-28 18:56 | Emergency (ER) | payer MEDICAID ==
[2021-09-28 19:49] LABS: ANION GAP 16.3 mEq/L (7-13); CHLORIDE,CL 95 mmol/L (98-107); SODIUM,NA 132 mmol/L (136-145)
[2021-09-28 19:55] LABS: AMPHETAMINES,URINE NEGATIVE (NEGATIVE); BARBITURATES,URINE NEGATIVE (NEGATIVE); BENZODIAZEPINE,URINE POSITIVE (NEGATIVE); MDMA (ECSTASY), URINE NEGATIVE (NEGATIVE); METHADONE,URINE NEGATIVE (NEGATIVE); METHAMPHETAMINES,URINE NEGATIVE (NEGATIVE); OPIATES,URINE NEGATIVE (NEGATIVE); OXYCODONE,URINE NEGATIVE (NEGATIVE); PHENCYCLIDINE,URINE NEGATIVE (NEGATIVE); TCA,URINE NEGATIVE (NEGATIVE)
[2021-09-28] MEDS ORDERED: Dexamethasone 4 MG/ML SDV IVPUSH ONE (20:01)
[2021-09-28] MEDS ORDERED: Insulin Regular, Human 100 Units/ML 3 ML Vial SUBCUT ONE (20:02)
[2021-09-28] MEDS ORDERED: Glucagon,Human Recombinant 1 MG Vial IM PRN (20:02)
[2021-09-28] MEDS ORDERED: 50% Dextrose in Water 50 ML Syringe IVPUSH PRN (20:02)
[2021-09-28] MEDS ORDERED: Benzonatate 100 MG Cap PO ONE (20:02)
[2021-09-28 20:08] LABS: CORONAVIRUS COVID-19 NAA NEGATIVE (NEGATIVE)
[2021-09-28] MEDS ORDERED: Ketorolac 30 MG/ML SDV IVPUSH ONE (20:27)
[2021-09-28] MEDS ORDERED: Acetaminophen/HYDROcodone 325-5 MG Tab PO ONE (20:28)
[2021-09-28 20:38] VITALS: BP 128/71; PULSE 88
[2021-09-28] MEDS ORDERED: Albuterol 6.7 GM Inhaler INH ONE (22:34)
== END 2021-09-28 22:45 | disposition home or self-care (01) ==
LOC: DL.ED 18:56
DX: R07.89 Other chest pain (principal); J10.1 Influenza due to other identified influenza virus with other respiratory manifestations; F10.10 Alcohol abuse, uncomplicated; I10 Essential (primary) hypertension; I25.2 Old myocardial infarction; E11.9 Type 2 diabetes mellitus without complications; K21.9 Gastro-esophageal reflux disease without esophagitis; Z91.018 Allergy to other foods; Z79.84 Long term (current) use of oral hypoglycemic drugs; Z79.899 Other long term (current) drug therapy; Z87.891 Personal history of nicotine dependence; Z20.822 Contact with and (suspected) exposure to COVID-19; Y90.8 Blood alcohol level of 240 mg/100 ml or more
CPT/HCPCS: 0240U; 36415; 71250; 80053; 80305; 80307; 82150; 83605; 83690; 83880; 84484; 85025; 87040; 93005; 96374; 96375; 99285; A9270; J1100; J1815; J1885; 93010; 99284

== ENCOUNTER 2021-10-05 03:39 | Emergency (ER) | payer SELFPAY ==
[2021-10-05] MEDS ORDERED: Nitroglycerin 0.4 MG Tab.SL ONE (03:51)
[2021-10-05] MEDS ORDERED: Nitroglycerin 0.4 MG Tab.SL SL ONE ×2 (04:06→05:12)
[2021-10-05 04:18] LABS: AMPHETAMINES,URINE NEGATIVE (NEGATIVE); BARBITURATES,URINE NEGATIVE (NEGATIVE); BENZODIAZEPINE,URINE POSITIVE (NEGATIVE); MDMA (ECSTASY), URINE NEGATIVE (NEGATIVE); METHADONE,URINE NEGATIVE (NEGATIVE); METHAMPHETAMINES,URINE NEGATIVE (NEGATIVE); OPIATES,URINE NEGATIVE (NEGATIVE); OXYCODONE,URINE NEGATIVE (NEGATIVE); PHENCYCLIDINE,URINE NEGATIVE (NEGATIVE); TCA,URINE NEGATIVE (NEGATIVE)
[2021-10-05 04:49] LABS: ANION GAP 12.8 mEq/L (7-13); CHLORIDE,CL 102 mmol/L (98-107); SODIUM,NA 138 mmol/L (136-145)
[2021-10-05] MEDS ORDERED: Magnesium Sulfate/Water 2 GM in Premix Bag 1 BAG IV ONE (05:01)
[2021-10-05] MEDS ORDERED: Aspirin 81 MG Tab.Chew PO ONE (05:12)
[2021-10-05] MEDS ORDERED: Heparin Sodium 5,000 Units/ML Vial IVPUSH ONE (05:12)
[2021-10-05] MEDS ORDERED: Heparin Sodium/0.45% NaCl 25,000 UNITS/500 ML BAG IV SCH (05:15)
[2021-10-05] MEDS ORDERED: LORazepam 2 MG/ML SDV IVPUSH ONE (05:38)
[2021-10-05 06:13] VITALS: PULSE 64
[2021-10-05 06:27] LABS: PTT,PARTIAL THROMBOPLSTIN TIME 26.9 SEC (22.0-34.0)
[2021-10-05] MEDS ORDERED: Lisinopril 20 MG Tab PO ONE (06:50)
[2021-10-05 07:39] VITALS: BP 166/100
[2021-10-05] MEDS ORDERED: Ondansetron 4 MG/2 ML SDV IV ONE (08:40)
== END 2021-10-05 09:00 ==
LOC: DL.ED 03:39
DX: I21.4 Non-ST elevation (NSTEMI) myocardial infarction (principal); J10.1 Influenza due to other identified influenza virus with other respiratory manifestations; E83.42 Hypomagnesemia; R79.82 Elevated C-reactive protein (CRP); I10 Essential (primary) hypertension; I25.2 Old myocardial infarction; E11.9 Type 2 diabetes mellitus without complications; Z91.018 Allergy to other foods; Z79.84 Long term (current) use of oral hypoglycemic drugs; Z87.891 Personal history of nicotine dependence; Z20.822 Contact with and (suspected) exposure to COVID-19
CPT/HCPCS: 36415; 71045; 80053; 80305; 80307; 81001; 82150; 83605; 83690; 83735; 84484; 85025; 85610; 85730; 86140; 87635; 93005; 96365; 96366; 96368; 96374; 96375; 99285; A9270; J1644; J2060; J2405; J3475; 93010; U0002

== ENCOUNTER 2021-10-28 21:09 | Emergency (ER) | payer MEDICAID ==
[2021-10-28 22:23] VITALS: BP 159/103; PULSE 97
[2021-10-29 00:07] LABS: ANION GAP 11.3 mEq/L (7-13); CHLORIDE,CL 99 mmol/L (98-107); SODIUM,NA 132 mmol/L (136-145)
== END 2021-10-29 00:03 | disposition home or self-care (01) ==
LOC: DL.ED 21:09
DX: F10.230 Alcohol dependence with withdrawal, uncomplicated (principal); I10 Essential (primary) hypertension; I25.2 Old myocardial infarction; E11.9 Type 2 diabetes mellitus without complications; Z91.018 Allergy to other foods; Z79.899 Other long term (current) drug therapy; Z79.82 Long term (current) use of aspirin; Z87.891 Personal history of nicotine dependence; Y90.8 Blood alcohol level of 240 mg/100 ml or more
CPT/HCPCS: 36415; 80053; 80307; 84484; 85025; 93005; 99285-25

== ENCOUNTER 2021-11-02 20:25 | Inpatient (IN) | payer BC ==
[2021-11-02] MEDS ORDERED: LORazepam 2 MG/ML SDV IVPUSH PRN (21:05)
[2021-11-02 21:27] LABS: AMPHETAMINES,URINE NEGATIVE (NEGATIVE); BARBITURATES,URINE NEGATIVE (NEGATIVE); BENZODIAZEPINE,URINE NEGATIVE (NEGATIVE); MDMA (ECSTASY), URINE NEGATIVE (NEGATIVE); METHADONE,URINE NEGATIVE (NEGATIVE); METHAMPHETAMINES,URINE NEGATIVE (NEGATIVE); OPIATES,URINE NEGATIVE (NEGATIVE); OXYCODONE,URINE NEGATIVE (NEGATIVE); PHENCYCLIDINE,URINE NEGATIVE (NEGATIVE); TCA,URINE NEGATIVE (NEGATIVE)
[2021-11-02 21:35] LABS: ANION GAP 14.9 mEq/L (7-13); CHLORIDE,CL 106 mmol/L (98-107); SODIUM,NA 141 mmol/L (136-145)
[2021-11-02] MEDS ORDERED: MVI, Adult with Vitamin K 10 ML, Folic Acid 1 MG, Thiamine 100 MG in Lactated Ringers 1... IV ONE ×4 (21:42)
[2021-11-02 22:28] LABS: CORONAVIRUS COVID-19 NAA NEGATIVE (NEGATIVE)
[2021-11-02] MEDS ORDERED: Acetaminophen 325 MG Tab PO PRN (23:52)
[2021-11-02] MEDS ORDERED: Docusate Sodium 100 MG Cap PO PRN (23:52)
[2021-11-03] MEDS: Sodium Chloride 0.9% 1,000 ML IV SCH ×4 (00:30→21:49)
[2021-11-03] MEDS: Ondansetron 4 MG/2 ML SDV IVPUSH PRN ×2 (00:39→16:19)
[2021-11-03] MEDS: oxyCODONE 5 MG Tab PO PRN ×2 (00:40→16:18)
[2021-11-03] MEDS: LORazepam 0.5 MG Tab PO PRN ×5 (00:40→21:41)
[2021-11-03] MEDS ORDERED: Pantoprazole 40 MG Vial IVPUSH ONE (08:30)
[2021-11-03] MEDS ORDERED: Enoxaparin 40 MG/0.4 ML Syringe SUBCUT SCH (09:00)
[2021-11-03] MEDS ORDERED: Aspirin 325 MG Tab PO ONE (09:04)
[2021-11-03 09:14] LABS: CHLORIDE,CL 105 mmol/L (98-107); SODIUM,NA 142 mmol/L (136-145)
[2021-11-03 09:15] LABS: ANION GAP 14.6 mEq/L (7-13)
[2021-11-03] MEDS: ClonazePAM 0.5 MG Tab PO SCH ×3 (09:27→21:41)
[2021-11-03] MEDS: Folic Acid 1 MG Tab PO SCH (09:27)
[2021-11-03] MEDS: Multivitamin Tab PO SCH (09:27)
[2021-11-03] MEDS: Thiamine 100 MG in Sodium Chloride 0.9% 50 ML IV SCH (10:23)
[2021-11-03] MEDS ORDERED: LORazepam 2 MG/ML SDV IVPUSH ONE ×2 (10:59→12:22)
[2021-11-03] MEDS: Nitroglycerin 0.4 MG Tab.SL SL PRN ×2 (11:38→11:48)
[2021-11-03] MEDS ORDERED: atorvaSTATin 20 MG Tab PO ONE (11:56)
[2021-11-03] MEDS ORDERED: LORazepam 2 MG/ML SDV IVPUSH PRN ×2 (12:27→12:45)
[2021-11-03] MEDS ORDERED: Glucagon,Human Recombinant 1 MG Vial IM PRN (16:04)
[2021-11-03] MEDS ORDERED: 50% Dextrose in Water 50 ML Syringe IVPUSH PRN (16:04)
[2021-11-03] MEDS: Metoprolol Succinate 25 MG Tab.ER PO SCH (17:25)
[2021-11-03] MEDS: Insulin Lispro 100 Units/ML 3 ML Vial SUBCUT SCH ×2 (17:26→21:42)
[2021-11-03] MEDS: Enoxaparin 80 MG/0.8 ML Syringe SUBCUT SCH (21:42)
[2021-11-04] MEDS: Sodium Chloride 0.9% 1,000 ML IV SCH (04:28)
[2021-11-04] MEDS: Nitroglycerin 0.4 MG Tab.SL SL PRN ×2 (04:34→04:44)
[2021-11-04] MEDS: LORazepam 0.5 MG Tab PO PRN ×2 (04:41→10:35)
[2021-11-04] MEDS: oxyCODONE 5 MG Tab PO PRN (04:42)
[2021-11-04 06:25] LABS: ANION GAP 15.8 mEq/L (7-13); CHLORIDE,CL 99 mmol/L (98-107); SODIUM,NA 138 mmol/L (138-146)
[2021-11-04] MEDS ORDERED: Aspirin 325 MG Tab.EC PO SCH ×2 (08:00)
[2021-11-04 08:20] VITALS: BP 140/96; PULSE 69
[2021-11-04] MEDS: ClonazePAM 0.5 MG Tab PO SCH (08:57)
[2021-11-04] MEDS: Folic Acid 1 MG Tab PO SCH (08:57)
[2021-11-04] MEDS: Metoprolol Succinate 25 MG Tab.ER PO SCH (08:58)
[2021-11-04] MEDS: Multivitamin Tab PO SCH (08:58)
[2021-11-04] MEDS: Insulin Lispro 100 Units/ML 3 ML Vial SUBCUT SCH ×2 (08:59→13:06)
[2021-11-04] MEDS: Enoxaparin 80 MG/0.8 ML Syringe SUBCUT SCH (09:00)
[2021-11-04] MEDS ORDERED: Thiamine 200 MG/2 ML MDV ONE (10:13)
[2021-11-04] MEDS ORDERED: Thiamine 100 MG in Sodium Chloride 0.9% 50 ML IV SCH ×2 (10:24→10:45)
[2021-11-04] MEDS: Thiamine 100 MG in Sodium Chloride 0.9% 50 ML IV SCH (10:54)
[2021-11-04] MEDS ORDERED: atorvaSTATin 20 MG Tab PO SCH (21:00)
== END 2021-11-04 11:34 | disposition home or self-care (01) | DRG 775 ==
LOC: DL.ED 20:25 → DL.MS 23:26
PROVIDERS: ADMIT Internal Medicine; ATTEND Internal Medicine
PROC: 4A023N7 Measurement of Cardiac Sampling and Pressure, Left Heart, Percutaneous Approach (ICD-10-PCS; principal; 2021-11-04)
PROC: B2111ZZ Fluoroscopy of Multiple Coronary Arteries using Low Osmolar Contrast (ICD-10-PCS; 2021-11-04)
DX: F10.129 Alcohol abuse with intoxication, unspecified (principal); F41.9 Anxiety disorder, unspecified; R07.89 Other chest pain; I10 Essential (primary) hypertension; K21.9 Gastro-esophageal reflux disease without esophagitis; J45.909 Unspecified asthma, uncomplicated; F32.A Depression, unspecified; G47.00 Insomnia, unspecified; E11.9 Type 2 diabetes mellitus without complications; Z20.822 Contact with and (suspected) exposure to COVID-19; Z79.4 Long term (current) use of insulin; Z87.81 Personal history of (healed) traumatic fracture; I25.2 Old myocardial infarction; Z98.890 Other specified postprocedural states; Z90.89 Acquired absence of other organs; Z79.899 Other long term (current) drug therapy
CPT/HCPCS: 0240U; 36415; 70450; 80053; 80305-QW; 80307; 81001; 82009; 82947; 83605; 83735; 84484; 85025; 93005; 96365; 96375; 99285-25; A9270-GY; C9113; J1650; J1815-GY; J2060; J2405; J3411; J3490; J7030; J7120

== ENCOUNTER 2021-11-20 15:26 | Emergency (ER) | payer MEDICAID ==
[2021-11-20] MEDS ORDERED: Sodium Chloride 0.9% 10 ML Syringe FLUSH PRN (15:34)
[2021-11-20 15:59] VITALS: BP 130/86; PULSE 86
[2021-11-20 16:14] LABS: AMPHETAMINES,URINE NEGATIVE (NEGATIVE); BARBITURATES,URINE NEGATIVE (NEGATIVE); BENZODIAZEPINE,URINE NEGATIVE (NEGATIVE); MDMA (ECSTASY), URINE NEGATIVE (NEGATIVE); METHADONE,URINE NEGATIVE (NEGATIVE); METHAMPHETAMINES,URINE NEGATIVE (NEGATIVE); OPIATES,URINE NEGATIVE (NEGATIVE); OXYCODONE,URINE NEGATIVE (NEGATIVE); PHENCYCLIDINE,URINE NEGATIVE (NEGATIVE); TCA,URINE NEGATIVE (NEGATIVE)
[2021-11-20 16:20] LABS: ANION GAP 11.7 mEq/L (7-13); CHLORIDE,CL 98 mmol/L (98-107); SODIUM,NA 133 mmol/L (136-145)
[2021-11-20] MEDS ORDERED: Sodium Chloride 0.9% 1,000 ML IV ONE (16:25)
[2021-11-20] MEDS ORDERED: MVI, Adult with Vitamin K 10 ML, Folic Acid 1 MG, Thiamine 100 MG in Lactated Ringers 1... IV ONE ×4 (16:26)
== END 2021-11-20 17:12 | disposition home or self-care (01) ==
LOC: DL.ED 15:26
DX: F10.129 Alcohol abuse with intoxication, unspecified (principal); I25.2 Old myocardial infarction; I10 Essential (primary) hypertension; E11.9 Type 2 diabetes mellitus without complications; K21.9 Gastro-esophageal reflux disease without esophagitis; Z91.018 Allergy to other foods; Z79.84 Long term (current) use of oral hypoglycemic drugs; Z79.82 Long term (current) use of aspirin; Z20.822 Contact with and (suspected) exposure to COVID-19; Y90.8 Blood alcohol level of 240 mg/100 ml or more
CPT/HCPCS: 36415; 71045; 80053; 80305-QW; 80307; 81001; 82150; 83605; 83690; 83735; 84443; 84484; 85025; 86140; 93005; 96365; 99284-25; J3411; J3490; J7120; U0002

== ENCOUNTER 2022-07-19 07:36 | Emergency (ER) | payer MEDICAID | END 2022-07-19 20:08 | disposition left against medical advice (07) | LOC: DL.ED 07:36 | DX: Z53.21 Procedure and treatment not carried out due to patient leaving prior to being seen by health care provider (principal) ==

== ENCOUNTER 2022-07-22 17:21 | Emergency (ER) | payer BC, MEDICAID, OTHER ==
[2022-07-22 17:44] VITALS: BP 135/89; PULSE 110
[2022-07-22] MEDS: MVI, Adult with Vitamin K 10 ML, Folic Acid 1 MG, Thiamine 100 MG in Lactated Ringers 1... IV ONE ×4 (18:15)
[2022-07-22 18:41] LABS: ANION GAP 15.7 mEq/L (7-13)
[2022-07-22] MEDS ORDERED: Glucagon,Human Recombinant 1 MG Vial IM PRN (19:13)
[2022-07-22] MEDS ORDERED: 50% Dextrose in Water 50 ML Syringe IVPUSH PRN (19:13)
[2022-07-22] MEDS: Insulin Regular, Human 100 Units/ML 3 ML Vial IV ONE (19:23)
[2022-07-22] MEDS: Sodium Chloride 0.9% 1,000 ML IV ONE (19:24)
[2022-07-22 20:01] LABS: AMPHETAMINES,URINE NEGATIVE (NEGATIVE); BARBITURATES,URINE NEGATIVE (NEGATIVE); BENZODIAZEPINE,URINE NEGATIVE (NEGATIVE); MDMA (ECSTASY), URINE NEGATIVE (NEGATIVE); METHADONE,URINE NEGATIVE (NEGATIVE); METHAMPHETAMINES,URINE NEGATIVE (NEGATIVE); OPIATES,URINE NEGATIVE (NEGATIVE); OXYCODONE,URINE NEGATIVE (NEGATIVE); PHENCYCLIDINE,URINE NEGATIVE (NEGATIVE); TCA,URINE NEGATIVE (NEGATIVE)
== END 2022-07-22 20:16 | disposition home or self-care (01) ==
LOC: DL.ED 17:21
DX: E11.65 Type 2 diabetes mellitus with hyperglycemia (principal); F10.929 Alcohol use, unspecified with intoxication, unspecified; I10 Essential (primary) hypertension; I25.2 Old myocardial infarction; Z91.018 Allergy to other foods; Z79.84 Long term (current) use of oral hypoglycemic drugs; Z79.82 Long term (current) use of aspirin; Z79.899 Other long term (current) drug therapy; Y90.8 Blood alcohol level of 240 mg/100 ml or more
CPT/HCPCS: 36415; 80053; 80305; 80307; 81001; 83605; 85025; 96361; 96365; 99284; J1815; J3411; J7030; J7120; J3490

== ENCOUNTER 2022-07-29 14:09 | Emergency (ER) | payer MEDICAID ==
[2022-07-29 14:32] VITALS: BP 112/84; PULSE 111
== END 2022-07-29 14:58 | disposition left against medical advice (07) ==
LOC: DL.ED 14:09
DX: R07.9 Chest pain, unspecified (principal); E11.9 Type 2 diabetes mellitus without complications; I25.2 Old myocardial infarction; Z91.018 Allergy to other foods; Z79.84 Long term (current) use of oral hypoglycemic drugs; Z79.899 Other long term (current) drug therapy; Z79.82 Long term (current) use of aspirin
CPT/HCPCS: 99284

== ENCOUNTER 2022-08-17 11:23 | Observation (INO) | payer MEDICAID ==
[2022-08-17] MEDS ORDERED: Ondansetron 4 MG/2 ML SDV IVPUSH ONE (12:01)
[2022-08-17] MEDS ORDERED: MVI, Adult with Vitamin K 10 ML, Thiamine 100 MG, Folic Acid 1 MG in Lactated Ringers 1... IV ONE ×4 (12:01)
[2022-08-17] MEDS ORDERED: Famotidine 20 MG/2 ML SDV IVPUSH ONE (12:02)
[2022-08-17 12:27] LABS: ANION GAP 16.9 mEq/L (7-13)
[2022-08-17] MEDS ORDERED: Docusate Sodium 100 MG Cap PO PRN (14:54)
[2022-08-17] MEDS ORDERED: Melatonin 3 MG Tab PO PRN (15:00)
[2022-08-17 15:10] LABS: AMPHETAMINES,URINE NEGATIVE (NEGATIVE); BARBITURATES,URINE NEGATIVE (NEGATIVE); BENZODIAZEPINE,URINE NEGATIVE (NEGATIVE); MDMA (ECSTASY), URINE NEGATIVE (NEGATIVE); METHADONE,URINE NEGATIVE (NEGATIVE); METHAMPHETAMINES,URINE POSITIVE (NEGATIVE); OPIATES,URINE NEGATIVE (NEGATIVE); OXYCODONE,URINE NEGATIVE (NEGATIVE); PHENCYCLIDINE,URINE NEGATIVE (NEGATIVE); TCA,URINE NEGATIVE (NEGATIVE)
[2022-08-17] MEDS: Pantoprazole 40 MG Vial IVPUSH SCH ×2 (15:37→20:49)
[2022-08-17] MEDS: Sodium Chloride 0.9% 1,000 ML IV SCH ×2 (15:37→23:14)
[2022-08-17] MEDS: LORazepam 1 MG Tab PO PRN (16:37)
[2022-08-17] MEDS: Ondansetron 4 MG/2 ML SDV IVPUSH PRN (20:38)
[2022-08-17] MEDS: ClonazePAM 0.5 MG Tab PO SCH (20:48)
[2022-08-17] MEDS ORDERED: Pantoprazole 40 MG Tab.CR PO SCH (21:00)
[2022-08-18] MEDS: Acetaminophen 325 MG Tab PO PRN ×3 (00:17→17:09)
[2022-08-18] MEDS: LORazepam 1 MG Tab PO PRN ×4 (00:18→17:09)
[2022-08-18] MEDS: Sodium Chloride 0.9% 1,000 ML IV SCH ×3 (06:22→21:17)
[2022-08-18 07:09] LABS: ANION GAP 11.2 mEq/L (7-13); CHLORIDE,CL 97 mmol/L (98-107); SODIUM,NA 134 mmol/L (136-145)
[2022-08-18 07:10] LABS: ESTIMATED GFR 118 mL/min (>=60)
[2022-08-18] MEDS: ClonazePAM 0.5 MG Tab PO SCH ×3 (08:41→21:03)
[2022-08-18] MEDS: Enoxaparin 40 MG/0.4 ML Syringe SUBCUT SCH (08:42)
[2022-08-18] MEDS: Ondansetron 4 MG/2 ML SDV IVPUSH PRN ×2 (08:43→17:09)
[2022-08-18] MEDS: Thiamine 100 MG Tab PO SCH (08:46)
[2022-08-18] MEDS: Pantoprazole 40 MG Vial IVPUSH SCH ×2 (08:47→21:04)
[2022-08-18] MEDS: Metoclopramide 10 MG/2 ML SDV IVPUSH PRN (11:49)
[2022-08-18] MEDS ORDERED: Folic Acid 1 MG in Sodium Chloride 0.9% 50 ML IV ONE (14:32)
[2022-08-18] MEDS ORDERED: 50% Dextrose in Water 50 ML Syringe IVPUSH PRN (14:37)
[2022-08-18] MEDS ORDERED: Glucagon,Human Recombinant 1 MG Vial IM PRN (14:37)
[2022-08-18] MEDS: Insulin Lispro 100 Units/ML 3 ML Vial SUBCUT SCH ×2 (17:01→21:19)
[2022-08-18] MEDS ORDERED: Non-Formulary Medication 1 Each (Diclofenac Sodium [Voltaren] 75 MG Tab.Ec) PO SCH (18:00)
[2022-08-19] MEDS: Insulin Lispro 100 Units/ML 3 ML Vial SUBCUT SCH ×2 (03:35→09:25)
[2022-08-19] MEDS: Metoclopramide 10 MG/2 ML SDV IVPUSH PRN (04:48)
[2022-08-19] MEDS: Sodium Chloride 0.9% 1,000 ML IV SCH (04:52)
[2022-08-19] MEDS: LORazepam 1 MG Tab PO PRN (04:56)
[2022-08-19 06:51] LABS: ANION GAP 8.1 mEq/L (7-13)
[2022-08-19 07:41] VITALS: BP 144/91; PULSE 78
[2022-08-19] MEDS ORDERED: Potassium Chloride 10 MEQ Tab.ER PO ONE (07:59)
[2022-08-19] MEDS ORDERED: Magnesium Sulfate/Water 2 GM in Premix Bag 1 BAG IV ONE ×2 (07:59→17:00)
[2022-08-19] MEDS ORDERED: Acetaminophen/Butalbital/Caffeine 325-50-40 MG Tab PO PRN (08:18)
[2022-08-19] MEDS ORDERED: Oxymetazoline 0.05% Nasal Spray 30 ML Bottle NAS PRN (08:19)
[2022-08-19] MEDS ORDERED: Polyethylene Glycol 3350 Powder 17 GM Packet PO PRN (08:27)
[2022-08-19] MEDS ORDERED: Bisacodyl 10 MG Supp RECTAL PRN (08:28)
[2022-08-19] MEDS ORDERED: Multivitamin, Childrens Tab.Chew PO SCH (09:00)
[2022-08-19] MEDS ORDERED: Folic Acid 1 MG Tab PO SCH (09:00)
[2022-08-19] MEDS ORDERED: glipiZIDE 5 MG Tab PO SCH (09:00)
[2022-08-19] MEDS ORDERED: Non-Formulary Medication 1 Each (Alogliptin Benzoate [Alogliptin] 25 MG Tablet) PO SCH (09:00)
[2022-08-19] MEDS ORDERED: Aspirin 81 MG Tab.EC PO SCH (09:00)
[2022-08-19] MEDS ORDERED: Lisinopril 20 MG Tab PO SCH (09:00)
[2022-08-19] MEDS ORDERED: Pravastatin 20 MG Tab PO SCH (09:00)
[2022-08-19] MEDS: Pantoprazole 40 MG Vial IVPUSH SCH (09:25)
[2022-08-19] MEDS: ClonazePAM 0.5 MG Tab PO SCH (09:25)
[2022-08-19] MEDS: Enoxaparin 40 MG/0.4 ML Syringe SUBCUT SCH (09:25)
[2022-08-19] MEDS: Thiamine 100 MG Tab PO SCH (09:26)
== END 2022-08-19 09:15 | disposition left against medical advice (07) ==
LOC: DL.ED 11:23 → DL.MS 13:41
PROVIDERS: ADMIT Internal Medicine; ATTEND Internal Medicine
DX: F10.129 Alcohol abuse with intoxication, unspecified (principal); K29.20 Alcoholic gastritis without bleeding; K70.10 Alcoholic hepatitis without ascites; F32.A Depression, unspecified; I10 Essential (primary) hypertension; J45.909 Unspecified asthma, uncomplicated; K21.9 Gastro-esophageal reflux disease without esophagitis; G31.2 Degeneration of nervous system due to alcohol; D64.9 Anemia, unspecified; D69.6 Thrombocytopenia, unspecified; E11.65 Type 2 diabetes mellitus with hyperglycemia; E87.1 Hypo-osmolality and hyponatremia; E80.6 Other disorders of bilirubin metabolism; Z79.84 Long term (current) use of oral hypoglycemic drugs; Z98.84 Bariatric surgery status; Z91.018 Allergy to other foods; Z79.899 Other long term (current) drug therapy; Z79.82 Long term (current) use of aspirin
CPT/HCPCS: 36415; 80053; 80305; 80307; 81001; 82009; 82947; 83735; 85025; A9270; C9113; J1650; J1815; J2405; J2765; J3411; J3490; J7030; J7120

== ENCOUNTER 2022-08-25 13:20 | Emergency (ER) | payer MEDICAID ==
[2022-08-25 13:46] VITALS: BP 140/96; PULSE 95
[2022-08-25] MEDS ORDERED: Sodium Chloride 0.9% 10 ML Syringe FLUSH PRN (13:47)
[2022-08-25] MEDS ORDERED: MVI, Adult with Vitamin K 10 ML, Thiamine 100 MG, Folic Acid 1 MG in Lactated Ringers 1... IV ONE ×4 (13:49)
[2022-08-25] MEDS ORDERED: Ondansetron 4 MG/2 ML SDV IV ONE (13:49)
[2022-08-25] MEDS ORDERED: LORazepam 2 MG/ML SDV IVPUSH ONE (13:50)
[2022-08-25 14:13] LABS: PTT,PARTIAL THROMBOPLSTIN TIME 25.9 SEC (22.0-34.0)
[2022-08-25 14:16] LABS: ANION GAP 15.8 mEq/L (7-13); CHLORIDE,CL 98 mmol/L (98-107); SODIUM,NA 135 mmol/L (136-145)
[2022-08-25 14:17] LABS: ESTIMATED GFR 113 mL/min (>=60)
[2022-08-25] MEDS ORDERED: Magnesium Sulfate/Water 2 GM in Premix Bag 1 BAG IV ONE (14:42)
[2022-08-25] MEDS ORDERED: Insulin Regular, Human 100 Units/ML 3 ML Vial IV ONE (14:43)
[2022-08-25 14:47] LABS: AMPHETAMINES,URINE NEGATIVE (NEGATIVE); BARBITURATES,URINE NEGATIVE (NEGATIVE); BENZODIAZEPINE,URINE NEGATIVE (NEGATIVE); MDMA (ECSTASY), URINE NEGATIVE (NEGATIVE); METHADONE,URINE NEGATIVE (NEGATIVE); METHAMPHETAMINES,URINE NEGATIVE (NEGATIVE); OPIATES,URINE NEGATIVE (NEGATIVE); OXYCODONE,URINE NEGATIVE (NEGATIVE); PHENCYCLIDINE,URINE NEGATIVE (NEGATIVE); TCA,URINE NEGATIVE (NEGATIVE)
== END 2022-08-25 15:38 | disposition critical access hospital (66) ==
LOC: DL.ED 13:20
DX: F10.120 Alcohol abuse with intoxication, uncomplicated (principal); E11.65 Type 2 diabetes mellitus with hyperglycemia; E83.42 Hypomagnesemia; Y90.8 Blood alcohol level of 240 mg/100 ml or more; I25.2 Old myocardial infarction; I10 Essential (primary) hypertension; K21.9 Gastro-esophageal reflux disease without esophagitis; Z79.84 Long term (current) use of oral hypoglycemic drugs; Z79.82 Long term (current) use of aspirin; Z79.899 Other long term (current) drug therapy
CPT/HCPCS: 36415; 80053; 80305; 80307; 81003; 82009; 82150; 83690; 83735; 85025; 85610; 85730; 86140; 93005; 96365; 96367; 96375; 99285; J1815; J2060; J2405; J3411; J3475; J3490; J7120

== ENCOUNTER 2022-08-25 13:30 | Inpatient (IN) | payer MEDICAID ==
[2022-08-25] MEDS ORDERED: Magnesium Hydroxide 400 MG/5 ML Susp 30 ML Cup PO PRN (15:43)
[2022-08-25] MEDS ORDERED: Haloperidol Lactate 5 MG/ML SDV IM PRN (15:43)
[2022-08-25] MEDS ORDERED: Ketorolac 30 MG/ML SDV IVPUSH PRN (15:43)
[2022-08-25] MEDS ORDERED: Polyethylene Glycol 3350 Powder 17 GM Packet PO PRN (15:43)
[2022-08-25] MEDS ORDERED: HYDROmorphone 0.5 MG/0.5 ML Syringe IVPUSH PRN (15:43)
[2022-08-25] MEDS ORDERED: Ondansetron 4 MG/2 ML SDV IVPUSH PRN (15:43)
[2022-08-25] MEDS ORDERED: Albuterol/Ipratropium 3.0-0.5 MG/3 ML Neb Soln NEB PRN (15:43)
[2022-08-25] MEDS ORDERED: MVI, Adult with Vitamin K 10 ML, Folic Acid 1 MG, Thiamine 100 MG in Lactated Ringers 1... IV ONE ×4 (15:45)
[2022-08-25] MEDS ORDERED: hydrALAZINE 20 MG/ML SDV IVPUSH PRN (15:48)
[2022-08-25] MEDS ORDERED: Metoprolol Tartrate 5 MG/5 ML SDV IVPUSH PRN (15:48)
[2022-08-25] MEDS ORDERED: Magnesium Sulfate/Water 2 GM in Premix Bag 1 BAG IV ONE (15:50)
[2022-08-25] MEDS ORDERED: Flumazenil 0.1 MG/ML 5 ML MDV IVPUSH PRN (15:51)
[2022-08-25] MEDS ORDERED: LORazepam 2 MG/ML SDV IVPUSH PRN (15:51)
[2022-08-25] MEDS ORDERED: Thiamine 100 MG in Sodium Chloride 0.9% 50 ML IV ONE (16:00)
[2022-08-25] MEDS ORDERED: Thiamine 200 MG/2 ML MDV ONE (16:53)
[2022-08-25] MEDS ORDERED: Sodium Chloride 0.9% 50 ML ONE (16:56)
[2022-08-25] MEDS ORDERED: Glucagon,Human Recombinant 1 MG Vial IM PRN (17:54)
[2022-08-25] MEDS ORDERED: 50% Dextrose in Water 50 ML Syringe IVPUSH PRN (17:54)
[2022-08-25] MEDS: Insulin Lispro 100 Units/ML 3 ML Vial SUBCUT SCH (19:51)
[2022-08-25] MEDS: Sodium Chloride 0.9% 10 ML Syringe FLUSH SCH (20:07)
[2022-08-25] MEDS ORDERED: Check Patch TRDERM SCH (21:00)
[2022-08-26] MEDS: Insulin Lispro 100 Units/ML 3 ML Vial SUBCUT SCH ×3 (00:11→12:37)
[2022-08-26] MEDS: LORazepam 1 MG Tab PO PRN ×2 (00:20→08:51)
[2022-08-26] MEDS: LORazepam 2 MG/ML SDV IV PRN ×3 (02:14→12:17)
[2022-08-26] MEDS: Sodium Chloride 0.9% 10 ML Syringe FLUSH PRN ×3 (02:14→06:08)
[2022-08-26] MEDS ORDERED: Pantoprazole 40 MG Vial IVPUSH SCH (06:00)
[2022-08-26 06:51] LABS: ANION GAP 8.4 mEq/L (7-13)
[2022-08-26] MEDS ORDERED: Potassium Chloride 10 MEQ Tab.ER PO ONE (08:23)
[2022-08-26] MEDS ORDERED: Sodium Chloride 0.9% 1,000 ML IV SCH (08:30)
[2022-08-26] MEDS: Sodium Chloride 0.9% 10 ML Syringe FLUSH SCH (08:58)
[2022-08-26] MEDS ORDERED: Folic Acid 1 MG Tab PO SCH (09:00)
[2022-08-26] MEDS ORDERED: Multivitamin Tab PO SCH (09:00)
[2022-08-26] MEDS ORDERED: Magnesium Sulfate/Water 2 GM in Premix Bag 1 BAG IV SCH (09:00)
[2022-08-26] MEDS ORDERED: Nicotine 21 MG/24 Hr Patch TRDERM SCH (09:00)
[2022-08-26] MEDS ORDERED: Thiamine 100 MG Tab PO SCH (09:00)
[2022-08-26] MEDS ORDERED: Sodium Chloride 0.65% Nasal Spray 45 ML Bottle NAS SCH (12:30)
[2022-08-26 15:24] VITALS: BP 157/95; PULSE 86
[2022-08-26] MEDS ORDERED: Insulin Lispro 100 Units/ML 3 ML Vial SUBCUT SCH (17:00)
[2022-08-26] MEDS ORDERED: Oxymetazoline 0.05% Nasal Spray 30 ML Bottle NAS PRN (21:00)
== END 2022-08-26 16:10 | disposition left against medical advice (07) | DRG 894 ==
LOC: DL.MS 13:30
PROVIDERS: ADMIT Internal Medicine; ATTEND Internal Medicine
DX: F10.229 Alcohol dependence with intoxication, unspecified (principal); E87.1 Hypo-osmolality and hyponatremia; G31.2 Degeneration of nervous system due to alcohol; R56.9 Unspecified convulsions; F32.A Depression, unspecified; K70.10 Alcoholic hepatitis without ascites; F10.288 Alcohol dependence with other alcohol-induced disorder; Z20.822 Contact with and (suspected) exposure to COVID-19; E88.09 Other disorders of plasma-protein metabolism, not elsewhere classified; E87.6 Hypokalemia; E83.42 Hypomagnesemia; R74.8 Abnormal levels of other serum enzymes; E11.65 Type 2 diabetes mellitus with hyperglycemia; D64.9 Anemia, unspecified; G89.29 Other chronic pain; M47.816 Spondylosis without myelopathy or radiculopathy, lumbar region; J45.909 Unspecified asthma, uncomplicated; K21.9 Gastro-esophageal reflux disease without esophagitis; G47.00 Insomnia, unspecified; Z91.048 Other nonmedicinal substance allergy status; Z79.82 Long term (current) use of aspirin; Z79.84 Long term (current) use of oral hypoglycemic drugs; Z79.899 Other long term (current) drug therapy; I25.2 Old myocardial infarction
CPT/HCPCS: 36415; 80053; 82947; 83735; 85025; 99222; 99238; A9270-GY; C9113; J1170; J1815-GY; J2060; J2405; J3411; J3475; J3490; J7030; U0002

== ENCOUNTER 2022-08-28 10:04 | Emergency (ER) | payer MEDICAID ==
[2022-08-28] MEDS ORDERED: Sodium Chloride 0.9% 10 ML Syringe FLUSH PRN (11:02)
[2022-08-28] MEDS ORDERED: MVI, Adult with Vitamin K 10 ML, Thiamine 100 MG, Folic Acid 1 MG in Lactated Ringers 1... IV ONE ×4 (11:02)
[2022-08-28 11:18] VITALS: BP 129/90; PULSE 99
[2022-08-28] MEDS ORDERED: LORazepam 2 MG/ML SDV IVPUSH ONE (11:53)
== END 2022-08-28 12:09 | disposition left against medical advice (07) ==
LOC: DL.ED 10:04
DX: F10.129 Alcohol abuse with intoxication, unspecified (principal); I10 Essential (primary) hypertension; I25.2 Old myocardial infarction; E11.9 Type 2 diabetes mellitus without complications; K21.9 Gastro-esophageal reflux disease without esophagitis; F17.210 Nicotine dependence, cigarettes, uncomplicated; Z91.018 Allergy to other foods; Z79.82 Long term (current) use of aspirin; Z79.84 Long term (current) use of oral hypoglycemic drugs; Z79.899 Other long term (current) drug therapy; Y90.8 Blood alcohol level of 240 mg/100 ml or more
CPT/HCPCS: 36415; 80053; 80307; 85025; 99284

== ENCOUNTER 2022-09-02 14:06 | Emergency (ER) | payer MEDICAID ==
[~2022-09-02 14:06] MED LIST changes: -Clindamycin Phosphate 900 MG in Sodium Chloride 0.9% 100 ML IV ONE; -Iopamidol 612 MG/ML 100 ML Bottle IVPUSH ONE; -Ketorolac 30 MG/ML SDV IVPUSH ONE; +LORazepam 1 MG Tab PO ONE; -Lactated Ringers 1,000 ML IV ONE; -Morphine 10 MG/ML SDV IV STA; -diphenhydrAMINE 50 MG/ML SDV IVPUSH ONE
[2022-09-02 14:17] LABS: AMPHETAMINES,URINE NEGATIVE (NEGATIVE); BARBITURATES,URINE NEGATIVE (NEGATIVE); BENZODIAZEPINE,URINE NEGATIVE (NEGATIVE); MDMA (ECSTASY), URINE NEGATIVE (NEGATIVE); METHADONE,URINE NEGATIVE (NEGATIVE); METHAMPHETAMINES,URINE NEGATIVE (NEGATIVE); OPIATES,URINE NEGATIVE (NEGATIVE); OXYCODONE,URINE NEGATIVE (NEGATIVE); PHENCYCLIDINE,URINE NEGATIVE (NEGATIVE); TCA,URINE NEGATIVE (NEGATIVE)
[2022-09-02 14:45] LABS: ANION GAP 13.8 mEq/L (7-13); CHLORIDE,CL 98 mmol/L (98-107); SODIUM,NA 136 mmol/L (136-145)
[2022-09-02 14:47] LABS: ACETAMINOPHEN 0 ug/mL (10-30 (Therapeutic)); ESTIMATED GFR 114 mL/min (>=60)
[2022-09-02] MEDS ORDERED: Albuterol/Ipratropium 3.0-0.5 MG/3 ML Neb Soln NEB ONE (15:22)
[2022-09-02] MEDS ORDERED: Albuterol/Ipratropium 3.0-0.5 MG/3 ML Neb Soln ONE (15:24)
== END 2022-09-02 15:39 | disposition left against medical advice (07) ==
LOC: DL.ED 14:06
DX: F10.120 Alcohol abuse with intoxication, uncomplicated (principal); I10 Essential (primary) hypertension; I25.2 Old myocardial infarction; J45.909 Unspecified asthma, uncomplicated; K21.9 Gastro-esophageal reflux disease without esophagitis; E11.9 Type 2 diabetes mellitus without complications; Z72.0 Tobacco use; Z91.018 Allergy to other foods; Z79.82 Long term (current) use of aspirin; Z79.84 Long term (current) use of oral hypoglycemic drugs; Z79.899 Other long term (current) drug therapy; Y90.8 Blood alcohol level of 240 mg/100 ml or more
CPT/HCPCS: 36415; 80053; 80143; 80179; 80305; 80307; 85025; 99284; A9270

== ENCOUNTER 2022-09-03 14:57 | Emergency (ER) | payer MEDICAID ==
[2022-09-03] MEDS ORDERED: Ondansetron 4 MG Tab.DIS PO ONE (14:58)
[2022-09-03] MEDS ORDERED: LORazepam 1 MG Tab PO ONE (14:58)
[2022-09-03 15:26] VITALS: PULSE 102
[2022-09-03 15:37] LABS: AMPHETAMINES,URINE NEGATIVE (NEGATIVE); BARBITURATES,URINE NEGATIVE (NEGATIVE); BENZODIAZEPINE,URINE POSITIVE (NEGATIVE); MDMA (ECSTASY), URINE NEGATIVE (NEGATIVE); METHADONE,URINE NEGATIVE (NEGATIVE); METHAMPHETAMINES,URINE NEGATIVE (NEGATIVE); OPIATES,URINE NEGATIVE (NEGATIVE); OXYCODONE,URINE NEGATIVE (NEGATIVE); PHENCYCLIDINE,URINE NEGATIVE (NEGATIVE); TCA,URINE NEGATIVE (NEGATIVE)
[2022-09-03 15:46] LABS: ANION GAP 13.2 mEq/L (7-13)
[2022-09-03 16:05] LABS: PTT,PARTIAL THROMBOPLSTIN TIME 25.9 SEC (22.0-34.0)
[2022-09-03] MEDS ORDERED: Insulin Regular, Human 100 Units/ML 3 ML Vial SUBCUT ONE (16:16)
[2022-09-03] MEDS ORDERED: Sodium Chloride 0.9% 10 ML Syringe FLUSH PRN (16:30)
[2022-09-03] MEDS ORDERED: Ondansetron 4 MG/2 ML SDV IV ONE (16:30)
[2022-09-03] MEDS ORDERED: LORazepam 2 MG/ML SDV IVPUSH ONE ×2 (16:32→18:21)
[2022-09-03] MEDS ORDERED: MVI, Adult with Vitamin K 10 ML, Thiamine 100 MG, Folic Acid 1 MG in Lactated Ringers 1... IV ONE ×4 (16:32)
[2022-09-03] MEDS ORDERED: Metoclopramide 10 MG/2 ML SDV IVPUSH ONE (18:21)
[2022-09-03] MEDS ORDERED: Pantoprazole 40 MG Vial IVPUSH ONE (18:30)
[2022-09-03] MEDS ORDERED: Famotidine 20 MG/2 ML SDV IVPUSH ONE (18:31)
[2022-09-03 19:07] VITALS: BP 144/95
[2022-09-03] MEDS ORDERED: Ondansetron 4 MG Tab.DIS ONE (21:13)
[2022-09-03] MEDS ORDERED: LORazepam 1 MG Tab ONE (21:13)
== END 2022-09-03 21:20 | disposition other institution (70) ==
LOC: DL.ED 14:57
DX: K29.20 Alcoholic gastritis without bleeding (principal); E11.65 Type 2 diabetes mellitus with hyperglycemia; F10.129 Alcohol abuse with intoxication, unspecified; I10 Essential (primary) hypertension; E11.9 Type 2 diabetes mellitus without complications; Z91.018 Allergy to other foods; Z79.899 Other long term (current) drug therapy; Z79.82 Long term (current) use of aspirin
CPT/HCPCS: 36415; 80053; 80143; 80179; 80305; 80307; 81001; 82150; 82947; 83690; 85025; 85610; 85730; 87635; 96365; 96375; 96376; 99284; A9270; C9113; J1815; J2060; J2405; J2765; J3411; J3490; J7120; U0002

== ENCOUNTER 2022-09-09 11:18 | Emergency (ER) | payer MEDICAID ==
[2022-09-09] MEDS ORDERED: Sodium Chloride 0.9% 10 ML Syringe FLUSH PRN (11:45)
[2022-09-09] MEDS ORDERED: MVI, Adult with Vitamin K 10 ML, Thiamine 100 MG, Folic Acid 1 MG in Lactated Ringers 1... IV ONE ×4 (11:45)
[2022-09-09 13:02] LABS: AMPHETAMINES,URINE NEGATIVE (NEGATIVE); BARBITURATES,URINE NEGATIVE (NEGATIVE); BENZODIAZEPINE,URINE NEGATIVE (NEGATIVE); MDMA (ECSTASY), URINE NEGATIVE (NEGATIVE); METHADONE,URINE NEGATIVE (NEGATIVE); METHAMPHETAMINES,URINE NEGATIVE (NEGATIVE); OPIATES,URINE NEGATIVE (NEGATIVE); OXYCODONE,URINE NEGATIVE (NEGATIVE); PHENCYCLIDINE,URINE NEGATIVE (NEGATIVE); TCA,URINE NEGATIVE (NEGATIVE)
[2022-09-09] MEDS ORDERED: Sodium Chloride 0.9% 1,000 ML IV SCH (13:30)
[2022-09-09] MEDS ORDERED: Pantoprazole 40 MG Vial IVPUSH ONE (17:44)
[2022-09-09] MEDS ORDERED: LORazepam 2 MG/ML SDV IVPUSH ONE (17:44)
[2022-09-09] MEDS ORDERED: Ondansetron 4 MG/2 ML SDV IV ONE (17:44)
[2022-09-09 18:02] VITALS: BP 158/91; PULSE 87
== END 2022-09-09 20:40 ==
LOC: DL.ED 11:18
DX: F10.920 Alcohol use, unspecified with intoxication, uncomplicated (principal); I10 Essential (primary) hypertension; I25.2 Old myocardial infarction; J45.909 Unspecified asthma, uncomplicated; K21.9 Gastro-esophageal reflux disease without esophagitis; E11.9 Type 2 diabetes mellitus without complications; Z79.82 Long term (current) use of aspirin; Z79.84 Long term (current) use of oral hypoglycemic drugs; Z79.899 Other long term (current) drug therapy; Z91.018 Allergy to other foods; Y90.8 Blood alcohol level of 240 mg/100 ml or more
CPT/HCPCS: 36415; 80053; 80305; 80307; 81001; 85025; 96361; 96365; 96375; 99284; C9113; J2060; J2405; J3411; J3490; J7030; J7120

== ENCOUNTER 2022-09-19 09:16 | Emergency (ER) | payer MEDICAID | END 2022-09-19 09:54 | disposition left against medical advice (07) | LOC: DL.ED 09:16 | DX: Z53.21 Procedure and treatment not carried out due to patient leaving prior to being seen by health care provider (principal) ==

== ENCOUNTER 2022-10-24 15:19 | Emergency (ER) | payer MEDICAID ==
[2022-10-24 15:11] VITALS: BP 148/102; PULSE 106
[~2022-10-24 15:19] MED LIST changes: -LORazepam 1 MG Tab PO ONE; +LORazepam 2 MG/ML SDV IVPUSH ONE; +Ondansetron 4 MG/2 ML SDV IVPUSH ONE; +Sodium Chloride 0.9% 10 ML Syringe FLUSH PRN
[2022-10-24 15:32] LABS: ANION GAP 15.7 mEq/L (7-13)
[2022-10-24 16:26] LABS: CORONAVIRUS COVID-19 NAA NEGATIVE (NEGATIVE)
== END 2022-10-24 19:18 | disposition home or self-care (01) ==
LOC: DL.ED 15:19
DX: F10.129 Alcohol abuse with intoxication, unspecified (principal); I10 Essential (primary) hypertension; J45.909 Unspecified asthma, uncomplicated; I25.2 Old myocardial infarction; K21.9 Gastro-esophageal reflux disease without esophagitis; E11.9 Type 2 diabetes mellitus without complications; Y90.8 Blood alcohol level of 240 mg/100 ml or more; Z91.018 Allergy to other foods; Z79.82 Long term (current) use of aspirin; Z79.84 Long term (current) use of oral hypoglycemic drugs; Z79.899 Other long term (current) drug therapy; Z20.822 Contact with and (suspected) exposure to COVID-19
CPT/HCPCS: 0240U; 36415; 70450; 71045; 80053; 80143; 80179; 80307; 81001; 82140; 83690; 85025; 85610; 93005; 96374; 96375; 99285; J2060; J2405

== ENCOUNTER 2022-10-24 21:48 | Emergency (ER) | payer MEDICAID ==
[2022-10-24 21:15] VITALS: BP 142/101; PULSE 88
== END 2022-10-25 04:41 | disposition home or self-care (01) ==
LOC: DL.ED 21:48
DX: F10.929 Alcohol use, unspecified with intoxication, unspecified (principal); I10 Essential (primary) hypertension; I25.2 Old myocardial infarction; J45.909 Unspecified asthma, uncomplicated; K21.9 Gastro-esophageal reflux disease without esophagitis; E11.9 Type 2 diabetes mellitus without complications; Y90.8 Blood alcohol level of 240 mg/100 ml or more; Z91.018 Allergy to other foods; Z79.82 Long term (current) use of aspirin; Z79.84 Long term (current) use of oral hypoglycemic drugs; Z79.899 Other long term (current) drug therapy
CPT/HCPCS: 0240U; 36415; 70450; 71045; 80053; 80143; 80179; 80307; 81001; 82140; 83690; 85025; 85610; 93005; 93010; 96374; 96375; 99283; 99284; 99285-25; J2060; J2405

== ENCOUNTER 2022-10-26 09:55 | Emergency (ER) | payer MEDICAID ==
[2022-10-26] MEDS ORDERED: Ondansetron 4 MG/2 ML SDV IVPUSH ONE ×3 (10:00→15:12)
[2022-10-26 10:57] LABS: ANION GAP 21.1 mEq/L (7-13)
[2022-10-26] MEDS ORDERED: Morphine 2 MG/ML SYRINGE IVPUSH ONE (15:11)
[2022-10-26] MEDS ORDERED: Pantoprazole 40 MG in Sodium Chloride 0.9% 100 ML IV ONE (15:11)
[2022-10-26] MEDS ORDERED: LORazepam 2 MG/ML SDV IVPUSH ONE (15:11)
[2022-10-26] MEDS ORDERED: Iopamidol 612 MG/ML 100 ML Bottle IVPUSH ONE (15:12)
[2022-10-26 16:16] VITALS: BP 144/82; PULSE 106
[2022-10-26] MEDS ORDERED: Pantoprazole 80 MG in Sodium Chloride 0.9% 100 ML IV SCH (16:45)
== END 2022-10-26 17:05 ==
LOC: DL.ED 09:55
DX: K92.2 Gastrointestinal hemorrhage, unspecified (principal); F10.90 Alcohol use, unspecified, uncomplicated; Y90.8 Blood alcohol level of 240 mg/100 ml or more; J45.909 Unspecified asthma, uncomplicated; K21.9 Gastro-esophageal reflux disease without esophagitis; E11.9 Type 2 diabetes mellitus without complications; I25.2 Old myocardial infarction; Z79.82 Long term (current) use of aspirin; Z79.84 Long term (current) use of oral hypoglycemic drugs; Z79.899 Other long term (current) drug therapy
CPT/HCPCS: 36415; 74177; 80053; 80307; 82271; 83690; 85025; 85610; 96365; 96366; 96375; 96376; 99284; 99285-25; C9113; J2060; J2270; J2405; Q9967

== ENCOUNTER 2022-10-29 10:50 | Emergency (ER) | payer MEDICAID ==
[2022-10-29 11:02] VITALS: BP 127/88; PULSE 106
[2022-10-29 11:17] LABS: AMPHETAMINES,URINE NEGATIVE (NEGATIVE); BARBITURATES,URINE NEGATIVE (NEGATIVE); BENZODIAZEPINE,URINE POSITIVE (NEGATIVE); MDMA (ECSTASY), URINE NEGATIVE (NEGATIVE); METHADONE,URINE NEGATIVE (NEGATIVE); METHAMPHETAMINES,URINE NEGATIVE (NEGATIVE); OPIATES,URINE NEGATIVE (NEGATIVE); OXYCODONE,URINE NEGATIVE (NEGATIVE); PHENCYCLIDINE,URINE NEGATIVE (NEGATIVE); TCA,URINE NEGATIVE (NEGATIVE)
[2022-10-29 11:28] LABS: ANION GAP 13.3 mEq/L (7-13)
[2022-10-29] MEDS ORDERED: LORazepam 2 MG/ML SDV IVPUSH ONE ×2 (11:31→13:43)
[2022-10-29 11:44] LABS: CORONAVIRUS COVID-19 NAA NEGATIVE (NEGATIVE)
[2022-10-29] MEDS ORDERED: Acetaminophen 500 MG Tab PO ONE (13:43)
== END 2022-10-29 15:08 | disposition left against medical advice (07) ==
LOC: DL.ED 10:50
DX: F10.120 Alcohol abuse with intoxication, uncomplicated (principal); Z20.822 Contact with and (suspected) exposure to COVID-19; Y90.7 Blood alcohol level of 200-239 mg/100 ml
CPT/HCPCS: 0240U; 36415; 80053; 80143; 80179; 80305; 80307; 81001; 83690; 85025; 96374; 96376; 99284; A9270; J2060

== ENCOUNTER 2023-02-18 22:19 | Emergency (ER) | payer MEDICAID ==
[2023-02-18 23:30] LABS: BASOPHILS PERCENT AUTO 0.4 % (0.0-1.0); EOSINOPHILS PERCENT AUTO 0.4 % (1.0-3.0); HEMATOCRIT 35.2 % (40.0-54.0); HEMOGLOBIN 12.3 g/dL (14.0-18.0); LYMPHOCYTES PERCENT AUTO 31.2 % (20.5-50.1); MEAN CORPUSCULAR HEMOGLOBIN 30.3 pg (27.0-34.0); MEAN CORPUSCULAR HGB CONC 34.9 g/dL (33.0-35.0); MEAN CORPUSCULAR VOLUME 86.7 fL (80-100); MONOCYTES PERCENT AUTO 13.6 % (2-8); NEUTROPHILS PERCENT AUTO 54.4 % (42.2-75.2); PLATELET COUNT,PLT 113 10^3/uL (150-450); RED BLOOD CELL COUNT 4.06 10^6/uL (4.6-6.2); WHITE BLOOD CELL COUNT,WBC 7.5 10^3/uL (5.0-10.0)
[2023-02-18 23:41] LABS: ALBUMIN 3.1 g/dL (3.4-5.0); ANION GAP 16.6 mEq/L (7-13); BILIRUBIN TOTAL 0.9 mg/dL (0.2-1.0); BUN/CREATININE RATIO 12.5 (No establ ref range); CALCIUM 8.2 mg/dL (8.5-10.1); CREATININE 0.72 mg/dL (0.70-1.30); EST CRCL DRUG DOSING (CG) 130.93 mL/min; POTASSIUM,K 3.6 mmol/L (3.5-5.1); PROTEIN TOTAL,TP 8.4 g/dL (6.4-8.2)
[2023-02-18 23:42] LABS: A/G RATIO 0.58
[2023-02-18] MEDS ORDERED: Sodium Chloride 0.9% 1,000 ML IV ONE (23:51)
[2023-02-18] MEDS ORDERED: Magnesium Sulfate/Water 2 GM in Premix Bag 1 BAG IV ONE (23:52)
[2023-02-18] MEDS ORDERED: Potassium Chloride 10 MEQ Tab.ER PO ONE (23:53)
[2023-02-19 00:03] LABS: AMPHETAMINES,URINE NEGATIVE (NEGATIVE); BARBITURATES,URINE NEGATIVE (NEGATIVE); BENZODIAZEPINE,URINE NEGATIVE (NEGATIVE); MDMA (ECSTASY), URINE NEGATIVE (NEGATIVE); METHADONE,URINE NEGATIVE (NEGATIVE); METHAMPHETAMINES,URINE POSITIVE (NEGATIVE); OPIATES,URINE NEGATIVE (NEGATIVE); OXYCODONE,URINE NEGATIVE (NEGATIVE); PHENCYCLIDINE,URINE NEGATIVE (NEGATIVE); TCA,URINE NEGATIVE (NEGATIVE)
[2023-02-19] MEDS ORDERED: Ondansetron 4 MG/2 ML SDV IVPUSH ONE (00:33)
[2023-02-19 04:57] VITALS: BP 144/82; PULSE 108
== END 2023-02-19 04:38 | disposition home or self-care (01) ==
LOC: DL.ED 22:19
DX: F10.920 Alcohol use, unspecified with intoxication, uncomplicated (principal); S50.11XA Contusion of right forearm, initial encounter; E83.42 Hypomagnesemia; F15.10 Other stimulant abuse, uncomplicated; Y90.8 Blood alcohol level of 240 mg/100 ml or more; I10 Essential (primary) hypertension; K21.9 Gastro-esophageal reflux disease without esophagitis; E11.9 Type 2 diabetes mellitus without complications; Z79.82 Long term (current) use of aspirin; Z79.899 Other long term (current) drug therapy; Z79.84 Long term (current) use of oral hypoglycemic drugs; Z91.018 Allergy to other foods; W22.8XXA Striking against or struck by other objects, initial encounter
CPT/HCPCS: 36415; 80053; 80305; 80307; 83735; 85025; 96361; 96365; 96375; 99284; A9270; J2405; J3475; J7030

== ENCOUNTER 2023-02-20 00:40 | Emergency (ER) | payer MEDICAID ==
[2023-02-20 06:34] VITALS: BP 149/110; PULSE 90
== END 2023-02-20 06:23 | disposition home or self-care (01) ==
LOC: DL.ED 00:40
DX: F10.920 Alcohol use, unspecified with intoxication, uncomplicated (principal); I10 Essential (primary) hypertension; E11.9 Type 2 diabetes mellitus without complications; I25.2 Old myocardial infarction; Z91.018 Allergy to other foods; Z79.899 Other long term (current) drug therapy; Z79.82 Long term (current) use of aspirin; Z79.84 Long term (current) use of oral hypoglycemic drugs
CPT/HCPCS: 99283

== ENCOUNTER 2023-02-25 16:00 | Emergency (ER) | payer MEDICAID ==
[2023-02-25] MEDS ORDERED: Sodium Chloride 0.9% 10 ML Syringe FLUSH PRN (16:13)
[2023-02-25 16:28] LABS: MEAN CORPUSCULAR HGB CONC 33.5 g/dL (33.0-35.0); MEAN CORPUSCULAR VOLUME 92.5 fL (80-100); PLATELET COUNT,PLT 200 10^3/uL (150-450); RED BLOOD CELL COUNT 2.26 10^6/uL (4.6-6.2); WHITE BLOOD CELL COUNT,WBC 6.9 10^3/uL (5.0-10.0)
[2023-02-25 16:35] LABS: HEMATOCRIT 20.9 % (40.0-54.0)
[2023-02-25 16:36] LABS: BASOPHILS PERCENT AUTO 0.7 % (0.0-1.0); EOSINOPHILS PERCENT AUTO 0.4 % (1.0-3.0); LYMPHOCYTES PERCENT AUTO 41.5 % (20.5-50.1); MONOCYTES PERCENT AUTO 14.7 % (2-8); NEUTROPHILS PERCENT AUTO 42.7 % (42.2-75.2)
[2023-02-25 16:44] VITALS: BP 134/77; PULSE 102
[2023-02-25 16:54] LABS: BAND PERCENT MAN 7 %; LYMPHOCYTES PERCENT MAN 42 % (20-50); MONOCYTES PERCENT MAN 8 % (2-8); SEG NEUTROPHILS PERCENT MAN 43 % (42-75)
[2023-02-25 16:57] LABS: LACTIC ACID 2.7 mmol/L (0.4-2.0)
[2023-02-25 16:58] LABS: ALANINE AMINOTRANSFERASE,ALT 133 U/L (16-63); ALBUMIN 2.7 g/dL (3.4-5.0); ALKALINE PHOSPHATASE 437 U/L (46-116); AMYLASE 85 U/L (25-115); ANION GAP 12.8 mEq/L (7-13); ASPARTATE AMNIOTRANSFERASE,AST 201 U/L (15-37); BLOOD UREA NITROGEN,BUN 11 mg/dL (7-18); BUN/CREATININE RATIO 12.1 (No establ ref range); C-REACTIVE PROTEIN 0.5 mg/dL (0.0-0.9); CALCIUM 7.6 mg/dL (8.5-10.1); CARBON DIOXIDE,CO2 25 mmol/L (21-32); CHLORIDE,CL 100 mmol/L (98-107); CREATININE 0.91 mg/dL (0.70-1.30); LIPASE 451 U/L (73-393); POTASSIUM,K 3.8 mmol/L (3.5-5.1); PROTEIN TOTAL,TP 7.1 g/dL (6.4-8.2); SODIUM,NA 134 mmol/L (136-145)
[2023-02-25 17:00] LABS: A/G RATIO 0.61; ESTIMATED GFR 107 mL/min (>=60); ETHANOL BLOOD MEDICAL 356 mg/dL (0); GLUCOSE RANDOM 556 mg/dL (70-99)
== END 2023-02-25 16:29 | disposition left against medical advice (07) ==
LOC: DL.ED 16:00
DX: R10.11 Right upper quadrant pain (principal); I10 Essential (primary) hypertension; K21.9 Gastro-esophageal reflux disease without esophagitis; E11.9 Type 2 diabetes mellitus without complications; Z91.018 Allergy to other foods; Z79.82 Long term (current) use of aspirin; Z79.899 Other long term (current) drug therapy; Z79.84 Long term (current) use of oral hypoglycemic drugs
CPT/HCPCS: 36415; 80053; 80307; 82150; 83605; 83690; 85025; 86140; 99284

== ENCOUNTER 2023-03-11 15:17 | Emergency (ER) | payer MEDICAID ==
[2023-03-11 15:37] VITALS: BP 125/83; PULSE 103
== END 2023-03-11 16:05 | disposition left against medical advice (07) ==
LOC: DL.ED 15:17
DX: Z53.21 Procedure and treatment not carried out due to patient leaving prior to being seen by health care provider (principal)

== ENCOUNTER 2023-04-09 19:18 | Emergency (ER) | payer MEDICAID ==
[2023-04-09 19:46] VITALS: BP 141/92; PULSE 97
== END 2023-04-09 19:34 | disposition left against medical advice (07) ==
LOC: DL.ED 19:18
DX: S80.861A Insect bite (nonvenomous), right lower leg, initial encounter (principal); Z53.29 Procedure and treatment not carried out because of patient's decision for other reasons; K21.9 Gastro-esophageal reflux disease without esophagitis; I10 Essential (primary) hypertension; E11.9 Type 2 diabetes mellitus without complications; Z79.84 Long term (current) use of oral hypoglycemic drugs; Z79.899 Other long term (current) drug therapy; W57.XXXA Bitten or stung by nonvenomous insect and other nonvenomous arthropods, initial encounter
CPT/HCPCS: 99283; 99284

== ENCOUNTER 2023-04-10 15:15 | Emergency (ER) | payer MEDICAID ==
[2023-04-10] MEDS ORDERED: Sodium Chloride 0.9% 10 ML Syringe FLUSH PRN (15:20)
[2023-04-10] MEDS ORDERED: Sodium Chloride 0.9% 1,000 ML IV ONE (15:20)
[2023-04-10 15:32] LABS: BASOPHILS PERCENT AUTO 1.1 % (0.0-1.0); EOSINOPHILS PERCENT AUTO 0.5 % (1.0-3.0); HEMATOCRIT 25.9 % (40.0-54.0); HEMOGLOBIN 7.9 g/dL (14.0-18.0); LYMPHOCYTES PERCENT AUTO 29.3 % (20.5-50.1); MEAN CORPUSCULAR HEMOGLOBIN 23.7 pg (27.0-34.0); MEAN CORPUSCULAR HGB CONC 30.5 g/dL (33.0-35.0); MEAN CORPUSCULAR VOLUME 77.8 fL (80-100); MONOCYTES PERCENT AUTO 8.8 % (2-8); NEUTROPHILS PERCENT AUTO 60.3 % (42.2-75.2); PLATELET COUNT,PLT 83 10^3/uL (150-450); RED BLOOD CELL COUNT 3.33 10^6/uL (4.6-6.2); WHITE BLOOD CELL COUNT,WBC 7.4 10^3/uL (5.0-10.0)
[2023-04-10 15:40] VITALS: BP 121/71; PULSE 101
[2023-04-10 15:51] LABS: ALBUMIN 2.7 g/dL (3.4-5.0); ANION GAP 15.6 mEq/L (7-13); BILIRUBIN TOTAL 1.3 mg/dL (0.2-1.0); BUN/CREATININE RATIO 7.8 (No establ ref range); CALCIUM 7.4 mg/dL (8.5-10.1); CREATININE 0.9 mg/dL (0.70-1.30); EST CRCL DRUG DOSING (CG) 104.74 mL/min; POTASSIUM,K 3.6 mmol/L (3.5-5.1); PROTEIN TOTAL,TP 8.6 g/dL (6.4-8.2)
[2023-04-10 15:54] LABS: A/G RATIO 0.46
== END 2023-04-10 17:15 | disposition home or self-care (01) ==
LOC: DL.ED 15:15
DX: F10.920 Alcohol use, unspecified with intoxication, uncomplicated (principal); I10 Essential (primary) hypertension; I25.2 Old myocardial infarction; K21.9 Gastro-esophageal reflux disease without esophagitis; E11.9 Type 2 diabetes mellitus without complications; Z79.84 Long term (current) use of oral hypoglycemic drugs; Z79.899 Other long term (current) drug therapy; Z91.018 Allergy to other foods; Z79.82 Long term (current) use of aspirin; Y90.8 Blood alcohol level of 240 mg/100 ml or more
CPT/HCPCS: 36415; 80053; 80307; 85025; 99283; 99284; J7030; J3490

== ENCOUNTER 2023-04-24 05:17 | Emergency (ER) | payer MEDICAID ==
[2023-04-24] MEDS ORDERED: chlordiazePOXIDE 25 MG Cap PO ONE (05:18)
[2023-04-24] MEDS ORDERED: LORazepam 2 MG/ML SDV IVPUSH ONE (05:46)
[2023-04-24] MEDS ORDERED: Ondansetron 4 MG/2 ML SDV IVPUSH ONE (05:47)
[2023-04-24 05:57] LABS: BASOPHILS PERCENT AUTO 2.1 % (0.0-1.0); EOSINOPHILS PERCENT AUTO 1.1 % (1.0-3.0); HEMATOCRIT 26.1 % (40.0-54.0); HEMOGLOBIN 7.9 g/dL (14.0-18.0); LYMPHOCYTES PERCENT AUTO 32.5 % (20.5-50.1); MEAN CORPUSCULAR HGB CONC 30.3 g/dL (33.0-35.0); MEAN CORPUSCULAR VOLUME 76.1 fL (80-100); MONOCYTES PERCENT AUTO 13.1 % (2-8); NEUTROPHILS PERCENT AUTO 51.2 % (42.2-75.2); PLATELET COUNT,PLT 178 10^3/uL (150-450); RED BLOOD CELL COUNT 3.43 10^6/uL (4.6-6.2); WHITE BLOOD CELL COUNT,WBC 4.7 10^3/uL (5.0-10.0)
[2023-04-24 06:05] LABS: ALBUMIN 2.1 g/dL (3.4-5.0); ANION GAP 12.1 mEq/L (7-13); BUN/CREATININE RATIO 8.7 (No establ ref range); CALCIUM 7.4 mg/dL (8.5-10.1); CREATININE 0.69 mg/dL (0.70-1.30); EST CRCL DRUG DOSING (CG) 136.62 mL/min; POTASSIUM,K 4.1 mmol/L (3.5-5.1); PROTEIN TOTAL,TP 8.6 g/dL (6.4-8.2)
[2023-04-24 06:09] LABS: A/G RATIO 0.32
[2023-04-24] MEDS ORDERED: Sodium Chloride 0.9% 1,000 ML IV ONE (07:56)
[2023-04-24 08:13] LABS: AMPHETAMINES,URINE NEGATIVE (NEGATIVE); BARBITURATES,URINE NEGATIVE (NEGATIVE); BENZODIAZEPINE,URINE NEGATIVE (NEGATIVE); MDMA (ECSTASY), URINE NEGATIVE (NEGATIVE); METHADONE,URINE NEGATIVE (NEGATIVE); METHAMPHETAMINES,URINE NEGATIVE (NEGATIVE); OPIATES,URINE NEGATIVE (NEGATIVE); OXYCODONE,URINE NEGATIVE (NEGATIVE); PHENCYCLIDINE,URINE NEGATIVE (NEGATIVE); TCA,URINE NEGATIVE (NEGATIVE)
[2023-04-24 08:19] LABS: INR 1.2 (0.9-1.2)
[2023-04-24] MEDS ORDERED: Take Home: Ondansetron 4 MG Tab.DIS, 5 Tab Pack PO ONE (09:36)
[2023-04-24] MEDS ORDERED: chlordiazePOXIDE 25 MG Cap ONE (10:08)
[2023-04-24 10:49] VITALS: BP 138/84; PULSE 74
== END 2023-04-24 10:44 | disposition home or self-care (01) ==
LOC: DL.ED 05:17
DX: F10.220 Alcohol dependence with intoxication, uncomplicated (principal); I10 Essential (primary) hypertension; K21.9 Gastro-esophageal reflux disease without esophagitis; E11.9 Type 2 diabetes mellitus without complications; Z79.899 Other long term (current) drug therapy; Z79.84 Long term (current) use of oral hypoglycemic drugs; Z91.018 Allergy to other foods; Z87.891 Personal history of nicotine dependence
CPT/HCPCS: 36415; 80053; 80305; 80307; 83690; 85025; 85610; 96361; 96374; 96375; 99283; 99284; A9270; J2060; J2405; J7030; Q0162